=== PATIENT | female | born 1955 | race African-American/Black ===

== ENCOUNTER 2016-12-16 14:11 | Emergency (ER) | payer MEDICAID ==
[2016-12-16 14:21] VITALS: BP 161/76; BMI 41.5
--- NOTE | 2016-12-16 14:43 | DR.GENAD ---
HPI - PCP Primary Care Physician: ALEXSANDRA IVAN IN [facility] - Complaint/Symptoms Chief Complaint Doctors Comments: Patient admits to feet hurting for several months. The sole robles and hurt when standing. She is a diabetic and glucose level range of 200-300 Chief Complaint:: PT C/O PAIN IN FEET WHEN STANDING AND WALKING Self Treatment fo Chief Complaint: PT STATES SHE HAS BEEN HAVING THIS PROBLEM FOR ABOUT 3 OR 4 MONTHS - Source History Provided: Patient - Mode of Arrival Mode of Arrival: Ambulatory - Timing Onset of Chief Complaint: 12/16/16 PMH - PMH Past Medical History: Yes Past Medical History: Anxiety, Arthritis, COPD, Depression, Diabetes, Dyslipidemia, Hypertension, Kidney Stones Past Surgical History: Yes Surgical History: Hysterectomy, Mastectomy, Tonsillectomy Past Surgical History Comment: RIGHT BREAST MASTECTOMY - Family History History of Family Medical Conditions: Yes Family Medical History: Diabetes Mellitus, Cancer, NC, Hypertension - Social History Does patient currently use any type of tobacco product: No Have you used tobacco products in the last 12 months: No Type of Tobacco Use: None Does any household member use tobacco: No Alcohol Use: None Do you use any recreational Drugs:: No Lives With: Family Lives Where: Home - infectious screening In the last 2 months have you had wt loss of >10#?: NO Have you had fever, night sweats or hemotysis?: No Have you traveled outside the country in the last 6 months?: No Isolation: Standard ROS - Review of Systems Constitutional: No Symptoms Reported Eyes: No Symptoms Reported ENTM: No Symptoms Reported Respiratoy: No Symptoms Reported Cardiovascular: No Symptoms Reported Gastrointestinal/Abdominal: No Symptoms Reported Genitourinary: No Symptoms Reported Neurological: No Symptoms Reported Musculoskeletal: No Symptoms Reported Integumentary: No Symptoms Reported Hematologic/Lymphatic: No Symptoms Reported Endocrine: No Symptoms Reported Psychiatric: No Symptoms Reported All Other Systems: Reviewed and Negative PE - Vital Signs Vitals: Temperature 98.7 F Pulse Rate 78 Respiratory Rate 20 Blood Pressure [Right Arm] 162/99 Blood Pressure [Left Arm] 163/76 Blood Pressure 161/76 O2 Sat by Pulse Oximetry 97 - General Limitations: No Limitations General Appearance: Alert, In No Apparent Distress - Head Head Exam: Normal Inspection, Atraumatic - Eyes Eye exam: Normal Appearance, PERRL, EOMI - ENT ENT Exam: Normal Exam External Ear Exam: Normal External Inspection TM/Canal Exam: Bilateral Normal Nose Exam: Normal Nose Exam Mouth Exam: Normal Inspection Throat Exam: Normal Inspection - Neck Neck Exam: Normal Inspection, Full ROM - Chest Chest Inspection: Normal Inspection - Respiratory Respiratory Exam: Normal Lung Sounds Bilat Respiratory Exam: Bilateral Clear to Auscultation - Cardiovascular Cardiovascular Exam: Regular Rate - Abdominal Exam Abdominal Exam: Normal Inspection, Normal Bowel Sounds Abdominal Tenderness: negative: RUQ, RLQ, LUQ, LLQ, Epigastrium, Suprapubic, Diffuse, Mild, Moderate, Severe, Other - Extremities Extremities Exam: Normal Inspection, Full ROM - Back Back Exam: Normal Inspection - Neurologic Neurological Exam: Alert, Oriented X3, CN II-XII Intact - Psychiatric Psychiatric Exam: Normal Affect, Normal Mood - Skin Skin Exam: Warm, Dry, Intact Course - Reevaluation 1st: Unchanged ROR - Labs Reviewed Result Diagrams: 12/16/16 15:00 12/16/16 15:00 Laboratory: WBC 5.5 X10^3/uL (3.6-10.0) 12/16/16 15:00 RBC 4.20 X10^6/uL (3.5-5.4) 12/16/16 15:00 Hgb 12.8 g/dL (12.0-16.0) 12/16/16 15:00 Hct 38.4 % (36.0-47.0) 12/16/16 15:00 MCV 91.4 fL (80.0-100.0) 12/16/16 15:00 MCH 30.5 pg (27.0-34.0) 12/16/16 15:00 MCHC 33.3 g/dL (33.0-35.0) 12/16/16 15:00 RDW 13.0 % (11.6-16.5) 12/16/16 15:00 Plt Count 204 X10^3/uL (150.0-450.0) 12/16/16 15:00 MPV 10.4 fL (7.4-11.0) 12/16/16 15:00 Neut % 58.4 % (42.0-75.0) 12/16/16 15:00 Lymph % 31.8 % (21.0-51.0) 12/16/16 15:00 [place] % 8.4 % (0.0-13.0) 12/16/16 15:00 Eos % 0.9 % (0.9-2.9) 12/16/16 15:00 Baso % 0.5 % (0.2-1.0) 12/16/16 15:00 Neut # 3.2 x10^3/uL (2.2-4.8) 12/16/16 15:00 Lymph # 1.7 X10^3/uL (1.3-2.9) 12/16/16 15:00 [place] # 0.5 x10^3/uL (0.3-0.8) 12/16/16 15:00 Eos # 0.1 x10^3/uL (0.0-0.2) 12/16/16 15:00 Baso # 0.0 X10^3/uL (0.0-0.1) 12/16/16 15:00 Absolute Nucleated RBC 0.0 /100WBC 12/16/16 15:00 Sodium 146 mmol/L (136-145) H 12/16/16 15:00 Corrected Sodium 148 mmol/L (136-145) H 12/16/16 15:00 Potassium 3.8 mmol/L (3.5-5.1) 12/16/16 15:00 Chloride 108 mmol/L (98-107) H 12/16/16 15:00 Carbon Dioxide 27.4 mmol/L (21-32) 12/16/16 15:00 BUN 9 mg/dL (7-18) 12/16/16 15:00 Creatinine 0.79 mg/dL (0.55-1.02) 12/16/16 15:00 Est GFR (MDRD) Af Amer > 60 (>60) 12/16/16 15:00 Est GFR (MDRD) Non-Af > 60 (>60) 12/16/16 15:00 Glucose 177 mg/dL (65-99) H 12/16/16 15:00 Hemoglobin A1c 7.5 % (4.5-6.2) H 12/16/16 15:00 Calcium 8.8 mg/dL (8.5-10.1) 12/16/16 15:00 Corrected Calcium TNP 12/16/16 15:00 Total Bilirubin 0.50 mg/dL (0.2-1.0) 12/16/16 15:00 AST 18 Units/L (15-37) 12/16/16 15:00 ALT 30 Units/L (12-78) 12/16/16 15:00 Alkaline Phosphatase 51 Units/L (46-116) 12/16/16 15:00 Total Protein 7.5 g/dL (6.4-8.2) 12/16/16 15:00 Albumin 3.7 g/dL (3.4-5.0) 12/16/16 15:00 Globulin 3.8 g/dL (2.5-4.5) 12/16/16 15:00 Albumin/Globulin Ratio 1.0 Ratio (1.1-2.1) L 12/16/16 15:00 - Diagnosis Discharge Problem: Diabetic neuropathy, painful - Discharge Plan Condition: Stable - Follow ups/Referrals Follow ups/Referrals: NFD,None [Primary Care Provider] - 3 days - Instructions
[2016-12-16 15:19] LABS: BASOPHILS % (AUTO) 0.5 % (0.2-1.0); EOSINOPHILS # (AUTO) 0.1 x10^3/uL (0.0-0.2); EOSINOPHILS % (AUTO) 0.9 % (0.9-2.9); HEMATOCRIT 38.4 % (36.0-47.0); HEMOGLOBIN 12.8 g/dL (12.0-16.0); LYMPHOCYTES # (AUTO) 1.7 X10^3/uL (1.3-2.9); LYMPHOCYTES % (AUTO) 31.8 % (21.0-51.0); MEAN CORPUSCULAR HEMOGLOBIN 30.5 pg (27.0-34.0); MEAN CORPUSCULAR HGB CONC 33.3 g/dL (33.0-35.0); MEAN CORPUSCULAR VOLUME 91.4 fL (80.0-100.0); MEAN PLATELET VOLUME 10.4 fL (7.4-11.0); MONOCYTES # (AUTO) 0.5 x10^3/uL (0.3-0.8); MONOCYTES % (AUTO) 8.4 % (0.0-13.0); NEUTROPHILS # (AUTO) 3.2 x10^3/uL (2.2-4.8); NEUTROPHILS % (AUTO) 58.4 % (42.0-75.0); PLATELET COUNT 204 X10^3/uL (150.0-450.0); WHITE BLOOD COUNT 5.5 X10^3/uL (3.6-10.0)
[2016-12-16 15:25] LABS: HEMOGLOBIN A1C 7.5 % (4.5-6.2)
[2016-12-16 15:27] LABS: ALANINE AMINOTRANSFERASE 30 Units/L (12-78); ALBUMIN 3.7 g/dL (3.4-5.0); ALKALINE PHOSPHATASE 51 Units/L (46-116); ASPARTATE AMINO TRANSFERASE 18 Units/L (15-37); BLOOD UREA NITROGEN 9 mg/dL (7-18); CALCIUM 8.8 mg/dL (8.5-10.1); CARBON DIOXIDE 27.4 mmol/L (21-32); CHLORIDE 108 mmol/L (98-107); COR NA(FOR HYPERGLY) 148 mmol/L (136-145); CREATININE 0.79 mg/dL (0.55-1.02); SODIUM 146 mmol/L (136-145); TOTAL PROTEIN 7.5 g/dL (6.4-8.2); eGFR BLACK RACES > 60 (>60); eGFR NON BLACK RACES > 60 (>60)
== END 2016-12-16 16:19 | disposition home or self-care (01) ==
LOC: ER 14:23
DX: E11.40 Type 2 diabetes mellitus with diabetic neuropathy, unspecified (principal); M79.2 Neuralgia and neuritis, unspecified
CPT/HCPCS: 36415; 80053; 83036; 85025; 99282

== ENCOUNTER → 2017-02-10 | Outpatient (CLI) | payer MEDICAID ==
[2017-02-10 11:01] LABS: BASOPHILS # (AUTO) 0.1 X10^3/uL (0.0-0.1); BASOPHILS % (AUTO) 1.1 % (0.2-1.0); EOSINOPHILS % (AUTO) 0.6 % (0.9-2.9); HEMATOCRIT 38.4 % (36.0-47.0); LYMPHOCYTES # (AUTO) 2.2 X10^3/uL (1.3-2.9); LYMPHOCYTES % (AUTO) 32.2 % (21.0-51.0); MEAN CORPUSCULAR HEMOGLOBIN 30.7 pg (27.0-34.0); MEAN CORPUSCULAR HGB CONC 33.9 g/dL (33.0-35.0); MEAN CORPUSCULAR VOLUME 90.5 fL (80.0-100.0); MEAN PLATELET VOLUME 10.3 fL (7.4-11.0); MONOCYTES # (AUTO) 0.6 x10^3/uL (0.3-0.8); MONOCYTES % (AUTO) 8.2 % (0.0-13.0); NEUTROPHILS # (AUTO) 3.9 x10^3/uL (2.2-4.8); NEUTROPHILS % (AUTO) 57.9 % (42.0-75.0); PLATELET COUNT 190 X10^3/uL (150.0-450.0); RED BLOOD COUNT 4.24 X10^6/uL (3.5-5.4); RED CELL DISTRIBUTION WIDTH 12.9 % (11.6-16.5); WHITE BLOOD COUNT 6.8 X10^3/uL (3.6-10.0)
[2017-02-10 11:15] LABS: ALANINE AMINOTRANSFERASE 27 Units/L (12-78); ALBUMIN 3.9 g/dL (3.4-5.0); ALKALINE PHOSPHATASE 60 Units/L (46-116); ASPARTATE AMINO TRANSFERASE 17 Units/L (15-37); BLOOD UREA NITROGEN 11 mg/dL (7-18); CALCIUM 9.1 mg/dL (8.5-10.1); CHLORIDE 107 mmol/L (98-107); CHOL/HDL RATIO 2.6 (0.0-5.0); CHOLESTEROL 162 mg/dL (0-200); COR NA(FOR HYPERGLY) 143 mmol/L (136-145); CREATININE 0.88 mg/dL (0.55-1.02); HDL CHOLESTEROL 63 mg/dL (40-60); SODIUM 141 mmol/L (136-145); T4 (THYROXINE) 7.5 ug/dL (4.7-13.3); TOTAL PROTEIN 7.7 g/dL (6.4-8.2); TRIGLYCERIDES 104 mg/dL (0-150); TSH (3RD GENERATION) 0.822 uIU/mL (0.358-3.74); eGFR BLACK RACES > 60 (>60); eGFR NON BLACK RACES > 60 (>60)
[2017-02-10 11:25] LABS: HEMOGLOBIN A1C 7.5 % (4.5-6.2)
== END | disposition home or self-care (01) | DRG 951 ==
LOC: LAB 10:19
PROVIDERS: ATTEND Nurse Practitioner Family
DX: Z00.00 Encounter for general adult medical examination without abnormal findings (principal); E11.9 Type 2 diabetes mellitus without complications; I10 Essential (primary) hypertension; E55.9 Vitamin D deficiency, unspecified; F32.89 Other specified depressive episodes; K21.9 Gastro-esophageal reflux disease without esophagitis; R10.84 Generalized abdominal pain; M54.89 Other dorsalgia; E53.8 Deficiency of other specified B group vitamins; R06.02 Shortness of breath; N76.0 Acute vaginitis; E78.4 Other hyperlipidemia; R30.0 Dysuria; R07.89 Other chest pain; Z41.8 Encounter for other procedures for purposes other than remedying health state; Z79.899 Other long term (current) drug therapy; J44.9 Chronic obstructive pulmonary disease, unspecified
CPT/HCPCS: 36415; 80053; 80061; 83036; 84436; 84443; 85025

== ENCOUNTER 2020-12-03 10:25 | Inpatient (IN) ==
--- NOTE | 2020-12-03 11:06 | DR.SOBA ---
HPI Time Seen Time Seen by Provider: 12/03/20 10:36 Complaints Chief Complaint Doctors Comments: 65 y/o female, has been ill for the past 2 weeks. Has been having frequent chills, then developed body aches past few days. Today started with cough, productive of thick creamy phlegm. + dyspnea today. Rader s been exposed to covid at a football game, thru family members. Did not receive any vaccines yet. Denies chest pain. Having aches, cough, dyspnea, weakness. Pulse ox low on EMS arrival, 80%. Better on NC. COVID-19 Coronavirus risk:travel/contact w/high risk person: Yes Has patient experienced Coronavirus symptoms: Yes Coronavirus symptoms experienced: Fever, Coughing and Shortness of Breath Reviewed Nurses Notes Reviewed: Yes Source History Provided: Patient and EMS Mode of Arrival Mode of Arrival: EMS Context Onset:: At Rest History of:: CHF Modifying Factors Worsens:: Nothing and Exertion Improves:: Nothing Associated Signs and Symptoms Associated Signs and Symptoms: Cough PMH PMH Past Medical History: Anxiety, Arthritis, COPD, Depression, Diabetes, Dyslipidemia, Hypertension and Kidney Stones Past Surgical History: Yes Surgical History: Hysterectomy, Mastectomy and Tonsillectomy Family History Family Medical History: Diabetes Mellitus, Cancer, PR and Hypertension Social History Do you use any recreational Drugs:: No ROS Review of Systems Constitutional: Chills, Fever, Malaise and Weakness Eyes: No Symptoms Reported ENTM: No Symptoms Reported Respiratoy: Productive Cough and Short of Breath Cardiovascular: No Symptoms Reported Gastrointestinal/Abdominal: Nausea; negative Abdominal Pain, Diarrhea and Vomiting Genitourinary: No Symptoms Reported Neurological: Weakness Musculoskeletal: Joint Pain and Muscle Pain Integumentary: No Symptoms Reported Hematologic/Lymphatic: No Symptoms Reported Endocrine: No Symptoms Reported Psychiatric: No Symptoms Reported All Other Systems: Reviewed and Negative PE Vital Signs Vitals: Pulse Rate 96 Respiratory Rate 23 Blood Pressure [Right Arm] 142/75 Blood Pressure 141/69 O2 Sat by Pulse Oximetry 92 General Limitations: No Limitations General Appearance: Alert and In No Apparent Distress Head Head Exam: Normal Inspection Eyes Eye exam: Normal Appearance ENT ENT Exam: Normal Exam Neck Neck Exam: Normal Inspection and Full ROM; negative Meningismus Chest Chest Inspection: Normal Inspection Respiratory Respiratory Exam: Normal Lung Sounds Bilat; negative Accessory Muscle Use and Respiratory Distress Cardiovascular Cardiovascular Exam: Regular Rate, Normal Rhythm and Normal Heart Sounds Abdominal Exam Abdominal Exam: Normal Inspection and Normal Bowel Sounds; negative Tenderness Extremities Extremities Exam: Normal Inspection and Full ROM; negative Edema Back Back Exam: Normal Inspection Neurologic Neurological Exam: Alert, Oriented X3 and CN II-XII Intact; negative Motor Sensory Deficit Psychiatric Psychiatric Exam: Normal Affect Skin Skin Exam: Warm and Dry MDM Differential Diagnosis Differential Diagnosis: COPD, Pneumonia and Pulmonary embolism Differential Diagnosis Comment:: Covid infection COURSE Treatment Treatment: 65 y/o female, not feeling great for 2 weeks with chills, developed a productive cough today with dyspnea. Has been exposed to covid. Pulse ox on RA in the low 80s on EMS arrival. Doing better on O2. W/u initiated. Covid test is positive. CXR with bilateral opacifications c/w covid pneumonia. Total CK elevated to 955, but MB % and troponin negative. Lactic acid elevated at 2.2. Pt given IV fluids, IV steroids and will cover with IV Azithromycin. 1512 - was c/o headache, generalized body aches. Given IV morphine. Pt assisted to bedside commode by RN, dropped pulse ox despite being on O2. Recommend admission for further treatment. Pt's PCP Dr. Tripp, currently OOT. Will discuss with covering hospitalist, Dr. Waterman. 1555 - Dr. Waterman accepts the admission. ROR Labs Reviewed Laboratory Results Reviewed?: Yes Result Diagrams: 12/03/20 10:55 12/03/20 10:55 Laboratory: WBC 5.4 X10^3/uL (3.6-10.0) 12/03/20 10:55 RBC 4.14 X10^6/uL (3.5-5.4) 12/03/20 10:55 Hgb 12.8 g/dL (12.0-16.0) 12/03/20 10:55 Hct 37.9 % (36.0-47.0) 12/03/20 10:55 MCV 91.5 fL (80.0-100.0) 12/03/20 10:55 MCH 31.0 pg (27.0-34.0) 12/03/20 10:55 MCHC 33.9 g/dL (33.0-35.0) 12/03/20 10:55 RDW 13.0 % (11.6-16.5) 12/03/20 10:55 Plt Count 144 X10^3/uL (150.0-450.0) L 12/03/20 10:55 MPV 10.7 fL (7.4-11.0) 12/03/20 10:55 Neut % (Auto) 70.0 % (42.0-75.0) 12/03/20 10:55 Lymph % (Auto) 21.2 % (21.0-51.0) 12/03/20 10:55 [place] % (Auto) 8.1 % (0.0-13.0) 12/03/20 10:55 Eos % (Auto) 0.1 % (0.9-2.9) L 12/03/20 10:55 Baso % (Auto) 0.6 % (0.2-1.0) 12/03/20 10:55 Neut # (Auto) 3.7 x10^3/uL (2.2-4.8) 12/03/20 10:55 Lymph # (Auto) 1.1 X10^3/uL (1.3-2.9) L 12/03/20 10:55 [place] # (Auto) 0.4 x10^3/uL (0.3-0.8) 12/03/20 10:55 Eos # (Auto) 0.0 x10^3/uL (0.0-0.2) 12/03/20 10:55 Baso # (Auto) 0.0 X10^3/uL (0.0-0.1) 12/03/20 10:55 Absolute Nucleated RBC 0.2 /100WBC 12/03/20 10:55 Sodium 144 mmol/L (136-145) 12/03/20 10:55 Corrected Sodium 146 mmol/L (136-145) H 12/03/20 10:55 Potassium 3.7 mmol/L (3.5-5.1) 12/03/20 10:55 Chloride 106 mmol/L (98-107) 12/03/20 10:55 Carbon Dioxide 28.4 mmol/L (21-32) 12/03/20 10:55 BUN 9 mg/dL (7-18) 12/03/20 10:55 Creatinine 0.95 mg/dL (0.55-1.02) 12/03/20 10:55 Est GFR (MDRD) Af Amer > 60 (>60) 12/03/20 10:55 Est GFR (MDRD) Non-Af > 60 (>60) 12/03/20 10:55 Glucose 179 mg/dL (65-99) H 12/03/20 10:55 Lactic Acid 2.2 mmol/L (0.4-2.0) H 12/03/20 10:55 Calcium 8.2 mg/dL (8.5-10.1) L 12/03/20 10:55 Corrected Calcium 8.8 mg/dL (8.5-10.1) 12/03/20 10:55 Total Bilirubin 1.00 mg/dL (0.2-1.0) 12/03/20 10:55 AST 103 Units/L (15-37) H 12/03/20 10:55 ALT 50 Units/L (12-78) 12/03/20 10:55 Alkaline Phosphatase 52 Units/L (46-116) 12/03/20 10:55 Creatine Kinase 955 Units/L (26-192) H 12/03/20 10:55 CK-MB (CK-2) < 1.0 ng/mL (0-4.0) 12/03/20 10:55 CK/CKMB % Calc 0.1 % (<4) 12/03/20 10:55 Troponin I < 0.02 ng/mL (0-1.5) 12/03/20 10:55 B-Natriuretic Peptide 11.1 pg/mL (0-79) 12/03/20 10:55 Total Protein 7.6 g/dL (6.4-8.2) 12/03/20 10:55 Albumin 3.3 g/dL (3.4-5.0) L 12/03/20 10:55 Globulin 4.3 g/dL (2.5-4.5) 12/03/20 10:55 Albumin/Globulin Ratio 0.8 Ratio (1.1-2.1) L 12/03/20 10:55 SARS-CoV-2 (PCR) Positive (NEGATIVE) A 12/03/20 12:18 Influenza Type A (PCR) Negative (NEGATIVE) 12/03/20 12:18 Influenza Type B (PCR) Negative (NEGATIVE) 12/03/20 12:18 RSV (PCR) Negative (NEGATIVE) 12/03/20 12:18 Other Results Comments: labs overall acceptable. Covid test is positive. XRAY XRAY Interpreted by: Both X-ray Results: + bilateral opacifications c/w Covid pneumonia EKG Rate: 101 [place]: Normal Rhythm: ST Block: None Hypertrophy: LAE and LVH ST: Normal Opioid Opioid Risk Tool Age (Tino box if 16-45): No History of Preadolescent Sexual Abuse: No Total: 0 Total Score Risk Category: Low Risk Copyright: [facility] predicting aberrant behaviors Diagnosis Discharge Problem: Pneumonia due to COVID-19 virus, Hypoxia
--- NOTE | 2020-12-03 11:22 | RAD ---
CHEST, 1 VIEWHISTORY: SOBStudy: Single view of the chest.Comparison:NoneFindings:The cardiomediastinal silhouette is normal. Bilateral interstitial prominence, possible early alveolar infiltrates. No focal consolidations, pleural effusions or pneumothorax. Osseous structures demonstrate no acute abnormality.IMPRESSION:1. Bilateral interstitial prominence and early alveolar infiltrates. Findings may represent atypical infection, including viral etiologies.Electronically signed by: DAVE FRAGA (Dec 03, 2020 11:20:17)
[2020-12-03 11:31] LABS: BASOPHILS % (AUTO) 0.6 % (0.2-1.0); EOSINOPHILS % (AUTO) 0.1 % (0.9-2.9); HEMATOCRIT 37.9 % (36.0-47.0); HEMOGLOBIN 12.8 g/dL (12.0-16.0); LYMPHOCYTES # (AUTO) 1.1 X10^3/uL (1.3-2.9); LYMPHOCYTES % (AUTO) 21.2 % (21.0-51.0); MEAN CORPUSCULAR HGB CONC 33.9 g/dL (33.0-35.0); MEAN CORPUSCULAR VOLUME 91.5 fL (80.0-100.0); MEAN PLATELET VOLUME 10.7 fL (7.4-11.0); MONOCYTES # (AUTO) 0.4 x10^3/uL (0.3-0.8); MONOCYTES % (AUTO) 8.1 % (0.0-13.0); NEUTROPHILS # (AUTO) 3.7 x10^3/uL (2.2-4.8); PLATELET COUNT 144 X10^3/uL (150.0-450.0); RED BLOOD COUNT 4.14 X10^6/uL (3.5-5.4); WHITE BLOOD COUNT 5.4 X10^3/uL (3.6-10.0)
[2020-12-03 11:52] LABS: ALANINE AMINOTRANSFERASE 50 Units/L (12-78); ALBUMIN 3.3 g/dL (3.4-5.0); ALKALINE PHOSPHATASE 52 Units/L (46-116); ASPARTATE AMINO TRANSFERASE 103 Units/L (15-37); BLOOD UREA NITROGEN 9 mg/dL (7-18); CALCIUM 8.2 mg/dL (8.5-10.1); CARBON DIOXIDE 28.4 mmol/L (21-32); CHLORIDE 106 mmol/L (98-107); CKMB % 0.1 % (<4); COR CA(FOR HYPOALB) 8.8 mg/dL (8.5-10.1); COR NA(FOR HYPERGLY) 146 mmol/L (136-145); CREATINE KINASE 955 Units/L (26-192); CREATINE KINASE MB < 1.0 ng/mL (0-4.0); CREATININE 0.95 mg/dL (0.55-1.02); SODIUM 144 mmol/L (136-145); TOTAL PROTEIN 7.6 g/dL (6.4-8.2); TROPONIN I < 0.02 ng/mL (0-1.5); eGFR NON BLACK RACES > 60 (>60)
[2020-12-03 11:59] LABS: LACTIC ACID 2.2 mmol/L (0.4-2.0)
[2020-12-03] MEDS ORDERED: MORPHINE SULFATE INJ 4 MG IVP ONE (14:06)
[2020-12-03] MEDS ORDERED: SOLU-Medrol 125 MG VIAL IVP ONE (14:06)
[2020-12-03] MEDS ORDERED: ZITHROMAX INJ 500 MG VIAL 500 MG in NS 250 ML IV 250 ML IV SCH (14:07)
[2020-12-03] MEDS ORDERED: ZITHROMAX INJ 500 MG VIAL IV ONE (14:41)
[2020-12-03] MEDS ORDERED: MORPHINE SULFATE INJ 4 MG ONE (14:41)
[2020-12-03] MEDS ORDERED: SOLU-Medrol 125 MG VIAL ONE (14:41)
[2020-12-03] MEDS ORDERED: NS 250 ML IV 250 ML IV ONE (14:42)
[2020-12-03] MEDS ORDERED: ROBITUSSIN DM PO PRN (17:01)
[2020-12-03] MEDS ORDERED: REMDESIVIR 200 MG in NS 250 ML IV 250 ML IV ONE (17:01)
[2020-12-03] MEDS ORDERED: NS 100 ML IV 100 ML ONE (17:21)
[2020-12-03 17:51] LABS: ABG ALLEN TEST POS; ABG BASE EXCESS 1.3 mmol/L (-2.0-2.0); ABG HCO3 25.9 mmol/L (22-26)
[2020-12-03] MEDS ORDERED: PHARMACY CONSULT - IVERMECTIN XX SCH (18:00)
--- NOTE | 2020-12-03 18:03 | CT ---
CTA CHESTCLINICAL INDICATION: COVID + HYPOXIAPROCEDURE: Non gated axial images of the chest were obtained with intravenous contrast according to pulmonary embolism protocol. MIPS were reconstructed Dose reduction techniques including Automated Exposure Control (AEC) and adjustment of mA and kV were utlized.COMPARISON:NoneFINDINGS:No evidence of a pulmonary embolism to the level of the segmental pulmonary arteries.The heart is normal in size . No pericardial effusion . Patchy bilateral ground-glass opacities are present. No suspicious mediastinal or axillary lymph nodes . No focal consolidations, pleural effusions or pneumothorax .Airways are patent . No suspicious pulmonary nodules or masses .Limited images of the upper abdomen are unremarkable.No aggressive osseous lesions.IMPRESSION:1. No evidence of pulmonary embolism.2. Patchy bilateral ground-glass opacities consistent with acute, atypical infection including viral etiologies.Electronically signed by: DAVE FRAGA (Dec 03, 2020 18:01:35)
[2020-12-03] MEDS ORDERED: NS 250 ML IV 500 ML IV ONE (18:15)
[2020-12-03] MEDS ORDERED: REMDESIVIR IV ONE (18:15)
[2020-12-03] MEDS ORDERED: PEPCID TAB 20 MG PO SCH (21:00)
[2020-12-03] MEDS ORDERED: ACCUNEB 1.25 MG NEBULE NEB SCH (21:00)
[2020-12-03] MEDS ORDERED: PROTONIX TAB 40 MG PO SCH (21:00)
[2020-12-03] MEDS: PULMICORT NEB TX 0.5 MG NEB SCH (23:55)
[2020-12-03] MEDS: BROVANA IN SCH (23:55)
[2020-12-03] MEDS ORDERED: FLUVOXAMINE MALEATE ONE (23:57)
[2020-12-03] MEDS ORDERED: NS 1/2 1000 ML IV 1,000 ML IV ONE (23:58)
[2020-12-04] MEDS: ASCORBIC ACID INJ MULTI-DOSE VIAL 1,500 MG in NS 50 ML IV 50 ML IV SCH ×5 (00:10→21:32)
[2020-12-04] MEDS: MELATONIN PO SCH ×2 (00:11→21:33)
[2020-12-04] MEDS: PERIACTIN TAB 4 MG PO SCH ×2 (00:11→05:26)
[2020-12-04] MEDS: SOLU-Medrol 40 MG VIAL IVP SCH ×4 (00:11→21:34)
[2020-12-04] MEDS: LIPITOR TAB 80 MG PO SCH ×2 (00:11→21:33)
[2020-12-04] MEDS: FLUVOXAMINE MALEATE PO SCH ×3 (00:12→21:32)
[2020-12-04] MEDS: TESSALON PERLES PO SCH ×4 (00:12→21:35)
[2020-12-04] MEDS: SINGULAIR TAB 10 MG PO SCH ×2 (00:12→21:34)
[2020-12-04] MEDS: NS 1/2 1000 ML IV 1,000 ML IV SCH ×4 (00:13→21:32)
[2020-12-04] MEDS: THIAMINE HCL INJ IVP SCH ×3 (00:13→21:34)
[2020-12-04] MEDS: SNACK - Diabetic Appropriate PO SCH ×2 (01:48→21:32)
[2020-12-04] MEDS ORDERED: NS 1/2 1000 ML IV 1,000 ML IV ONE (04:34)
[2020-12-04 05:49] LABS: ABG BASE EXCESS 1.7 mmol/L (-2.0-2.0); ABG HCO3 25.8 mmol/L (22-26)
[2020-12-04 05:54] LABS: ABG ALLEN TEST POS
[2020-12-04] MEDS: HumuLIN R SUBCUT PRN ×4 (06:06→21:57)
--- NOTE | 2020-12-04 06:51 | RAD ---
HISTORYSOBSTUDYPortable AP [id number]/26/2021FINDINGSHeart size is upper normal to slightly enlarged. Interval increase in patchy bilateral pulmonary infiltrates without evidence for pneumothorax or pleural fluid.IMPRESSIONIncreasing bilateral pneumonia.Electronically signed by: ARNALDO STROUD (Dec 04, 2020 06:49:24)
[2020-12-04 07:08] LABS: BASOPHILS % (AUTO) 0.3 % (0.2-1.0); HEMATOCRIT 38.6 % (36.0-47.0); HEMOGLOBIN 13.1 g/dL (12.0-16.0); LYMPHOCYTES % (AUTO) 26.8 % (21.0-51.0); MEAN CORPUSCULAR VOLUME 91.2 fL (80.0-100.0); MEAN PLATELET VOLUME 11.1 fL (7.4-11.0); MONOCYTES # (AUTO) 0.3 x10^3/uL (0.3-0.8); MONOCYTES % (AUTO) 7.8 % (0.0-13.0); NEUTROPHILS # (AUTO) 2.5 x10^3/uL (2.2-4.8); NEUTROPHILS % (AUTO) 65.1 % (42.0-75.0); PLATELET COUNT 184 X10^3/uL (150.0-450.0); RED BLOOD COUNT 4.23 X10^6/uL (3.5-5.4); RED CELL DISTRIBUTION WIDTH 13.1 % (11.6-16.5); WHITE BLOOD COUNT 3.9 X10^3/uL (3.6-10.0)
[2020-12-04 07:18] LABS: ALANINE AMINOTRANSFERASE 51 Units/L (12-78); ALKALINE PHOSPHATASE 56 Units/L (46-116); ASPARTATE AMINO TRANSFERASE 88 Units/L (15-37); BLOOD UREA NITROGEN 14 mg/dL (7-18); CALCIUM 8.8 mg/dL (8.5-10.1); CARBON DIOXIDE 27.4 mmol/L (21-32); CHLORIDE 104 mmol/L (98-107); COR CA(FOR HYPOALB) 9.6 mg/dL (8.5-10.1); COR NA(FOR HYPERGLY) 145 mmol/L (136-145); CREATININE 0.81 mg/dL (0.55-1.02); SODIUM 140 mmol/L (136-145); TOTAL PROTEIN 7.6 g/dL (6.4-8.2); eGFR NON BLACK RACES > 60 (>60)
[2020-12-04] MEDS ORDERED: PULMICORT NEB TX 0.5 MG NEB SCH (09:00)
[2020-12-04] MEDS ORDERED: VITAMIN D (1.25MG) PO SCH (09:00)
[2020-12-04] MEDS ORDERED: ASCORBIC ACID INJ MULTI-DOSE VIAL 1,500 MG in NS 100 ML IV 100 ML IV SCH (09:00)
[2020-12-04] MEDS ORDERED: VITAMIN A PO SCH (09:00)
[2020-12-04] MEDS ORDERED: THIAMINE HCL INJ IVP SCH (09:00)
[2020-12-04] MEDS ORDERED: LOVENOX INJ 100 MG SYR SC SCH (09:00)
[2020-12-04] MEDS ORDERED: PHARMACY CONSULT - LOVENOX XX SCH (09:00)
[2020-12-04] MEDS ORDERED: ZINC SULFATE PO SCH (09:00)
[2020-12-04] MEDS ORDERED: LIPITOR TAB 80 MG PO SCH (09:00)
[2020-12-04] MEDS ORDERED: LOVENOX INJ 40 MG SYR SC SCH (09:00)
[2020-12-04] MEDS ORDERED: BROVANA IN SCH (09:00)
[2020-12-04] MEDS: LEVAQUIN PREMIX IV 500 MG 500 MG/100 ML BAG IV SCH (09:30)
[2020-12-04] MEDS: LOVENOX INJ 100 MG SYR SC SCH ×2 (09:30→21:57)
[2020-12-04] MEDS: PROTONIX INJ 40 MG VIAL IVP SCH ×2 (09:31→21:33)
[2020-12-04] MEDS: PULMICORT NEB TX 0.5 MG NEB SCH ×2 (09:35→21:05)
[2020-12-04] MEDS: BROVANA IN SCH ×2 (09:35→21:05)
[2020-12-04] MEDS: ACCUNEB 1.25 MG NEBULE NEB PRN (09:35)
[2020-12-04] MEDS: ACTOS PO SCH (09:36)
[2020-12-04] MEDS: GLUCOPHAGE XR 24-HR PO SCH ×2 (09:36→21:32)
[2020-12-04] MEDS: VITAMIN D3 125 mcg (5,000 UNITS) PO SCH (09:36)
[2020-12-04] MEDS: PEPCID TAB 40 MG PO SCH ×2 (09:36→21:34)
[2020-12-04] MEDS: CYTOTEC PO SCH ×3 (09:37→21:34)
[2020-12-04] MEDS: ZINC SULFATE PO SCH (09:37)
[2020-12-04] MEDS: IVERMECTIN PO SCH (09:37)
[2020-12-04] MEDS: ZyrTEC TAB 10 MG PO SCH (09:37)
[2020-12-04] MEDS: REMDESIVIR 100 MG in NS 250 ML IV 250 ML IV SCH (19:57)
[2020-12-04] MEDS ORDERED: MELATONIN PO SCH (21:00)
[2020-12-05] MEDS: ASCORBIC ACID INJ MULTI-DOSE VIAL 1,500 MG in NS 50 ML IV 50 ML IV SCH ×4 (02:24→22:16)
[2020-12-05 05:11] LABS: ABG BASE EXCESS 3.2 mmol/L (-2.0-2.0); ABG HCO3 26.9 mmol/L (22-26)
[2020-12-05 05:13] LABS: ABG ALLEN TEST POSS
[2020-12-05] MEDS: CYTOTEC PO SCH ×3 (05:28→20:58)
[2020-12-05] MEDS: SOLU-Medrol 40 MG VIAL IVP SCH ×3 (05:29→21:03)
[2020-12-05] MEDS: TESSALON PERLES PO SCH ×3 (05:29→20:58)
[2020-12-05] MEDS: HumuLIN R SUBCUT PRN ×4 (06:04→20:55)
[2020-12-05 07:08] LABS: BASOPHILS % (AUTO) 0.2 % (0.2-1.0); HEMATOCRIT 35.1 % (36.0-47.0); HEMOGLOBIN 12.1 g/dL (12.0-16.0); LYMPHOCYTES # (AUTO) 1.2 X10^3/uL (1.3-2.9); LYMPHOCYTES % (AUTO) 17.5 % (21.0-51.0); MEAN CORPUSCULAR HGB CONC 34.3 g/dL (33.0-35.0); MEAN CORPUSCULAR VOLUME 90.2 fL (80.0-100.0); MEAN PLATELET VOLUME 11.3 fL (7.4-11.0); MONOCYTES # (AUTO) 0.6 x10^3/uL (0.3-0.8); MONOCYTES % (AUTO) 9.5 % (0.0-13.0); NEUTROPHILS # (AUTO) 4.8 x10^3/uL (2.2-4.8); NEUTROPHILS % (AUTO) 72.8 % (42.0-75.0); PLATELET COUNT 228 X10^3/uL (150.0-450.0); RED BLOOD COUNT 3.89 X10^6/uL (3.5-5.4); RED CELL DISTRIBUTION WIDTH 13.1 % (11.6-16.5); WHITE BLOOD COUNT 6.6 X10^3/uL (3.6-10.0)
[2020-12-05 07:26] LABS: ALANINE AMINOTRANSFERASE 39 Units/L (12-78); ALBUMIN 2.7 g/dL (3.4-5.0); ALKALINE PHOSPHATASE 50 Units/L (46-116); ASPARTATE AMINO TRANSFERASE 54 Units/L (15-37); BLOOD UREA NITROGEN 15 mg/dL (7-18); CALCIUM 8.2 mg/dL (8.5-10.1); CARBON DIOXIDE 26.4 mmol/L (21-32); CHLORIDE 106 mmol/L (98-107); COR CA(FOR HYPOALB) 9.2 mg/dL (8.5-10.1); COR NA(FOR HYPERGLY) 147 mmol/L (136-145); CREATININE 0.96 mg/dL (0.55-1.02); SODIUM 142 mmol/L (136-145); TOTAL PROTEIN 6.7 g/dL (6.4-8.2); eGFR NON BLACK RACES > 60 (>60)
--- NOTE | 2020-12-05 08:43 | RAD ---
HISTORYSOBSTUDYPortable AP [id number]/27/2021FINDINGSSimilar/stable heart size with no definite progression or improvemen t in bilateral pulmonary infiltrates. There is no evidence for developing pleural fluid or pneumothor ax.IMPRESSIONNo significant change in appearance of the bilateral pneumonia.Electronically signed by: ARNALDO STROUD (Dec 05, 2020 08:41:17)
[2020-12-05] MEDS: PROTONIX INJ 40 MG VIAL IVP SCH ×2 (08:51→21:04)
[2020-12-05] MEDS: LEVAQUIN PREMIX IV 500 MG 500 MG/100 ML BAG IV SCH (08:52)
[2020-12-05] MEDS: ZINC SULFATE PO SCH (08:52)
[2020-12-05] MEDS: ACTOS PO SCH (08:52)
[2020-12-05] MEDS: FLUVOXAMINE MALEATE PO SCH ×2 (08:52→20:58)
[2020-12-05] MEDS: VITAMIN D3 125 mcg (5,000 UNITS) PO SCH (08:53)
[2020-12-05] MEDS: PEPCID TAB 40 MG PO SCH ×2 (08:53→20:58)
[2020-12-05] MEDS: ZyrTEC TAB 10 MG PO SCH (08:53)
[2020-12-05] MEDS: GLUCOPHAGE XR 24-HR PO SCH ×2 (08:53→20:58)
[2020-12-05] MEDS: THIAMINE HCL INJ IVP SCH ×2 (08:53→21:06)
[2020-12-05] MEDS: IVERMECTIN PO SCH (08:54)
[2020-12-05] MEDS: NS 1/2 1000 ML IV 1,000 ML IV SCH ×2 (08:55→10:42)
[2020-12-05] MEDS: BROVANA IN SCH ×2 (09:18→21:27)
[2020-12-05] MEDS: ACCUNEB 1.25 MG NEBULE NEB PRN ×3 (09:18→21:26)
[2020-12-05] MEDS: PULMICORT NEB TX 0.5 MG NEB SCH ×2 (09:18→21:26)
[2020-12-05] MEDS: LOVENOX INJ 100 MG SYR SC SCH ×2 (10:14→20:59)
[2020-12-05] MEDS ORDERED: NS 1/2 1000 ML IV 1,000 ML IV ONE ×2 (10:27→19:51)
[2020-12-05] MEDS: INVOKANA PO SCH (14:43)
[2020-12-05] MEDS: SNACK - Diabetic Appropriate PO SCH (20:45)
[2020-12-05] MEDS: REMDESIVIR 100 MG in NS 250 ML IV 250 ML IV SCH (20:54)
[2020-12-05] MEDS: LIPITOR TAB 80 MG PO SCH (20:58)
[2020-12-05] MEDS: MELATONIN PO SCH (20:58)
[2020-12-05] MEDS: SINGULAIR TAB 10 MG PO SCH (20:58)
[2020-12-06] MEDS: SOLU-Medrol 40 MG VIAL IVP SCH ×4 (01:56→22:15)
[2020-12-06] MEDS: ASCORBIC ACID INJ MULTI-DOSE VIAL 1,500 MG in NS 50 ML IV 50 ML IV SCH ×4 (02:02→23:21)
[2020-12-06] MEDS: NS 1/2 1000 ML IV 1,000 ML IV SCH ×4 (03:32→22:08)
[2020-12-06] MEDS: TESSALON PERLES PO SCH ×3 (05:00→22:10)
[2020-12-06] MEDS: CYTOTEC PO SCH ×3 (05:00→22:10)
[2020-12-06 06:07] LABS: ABG BASE EXCESS 1.8 mmol/L (-2.0-2.0); ABG HCO3 25.7 mmol/L (22-26)
[2020-12-06 06:08] LABS: ABG ALLEN TEST POSS
[2020-12-06 06:27] LABS: BASOPHILS % (AUTO) 0.2 % (0.2-1.0); HEMATOCRIT 35.9 % (36.0-47.0); HEMOGLOBIN 12.2 g/dL (12.0-16.0); LYMPHOCYTES # (AUTO) 0.9 X10^3/uL (1.3-2.9); LYMPHOCYTES % (AUTO) 12.6 % (21.0-51.0); MEAN CORPUSCULAR HEMOGLOBIN 30.9 pg (27.0-34.0); MEAN CORPUSCULAR VOLUME 90.9 fL (80.0-100.0); MEAN PLATELET VOLUME 11.1 fL (7.4-11.0); MONOCYTES # (AUTO) 0.4 x10^3/uL (0.3-0.8); MONOCYTES % (AUTO) 5.8 % (0.0-13.0); NEUTROPHILS % (AUTO) 81.4 % (42.0-75.0); PLATELET COUNT 251 X10^3/uL (150.0-450.0); RED BLOOD COUNT 3.95 X10^6/uL (3.5-5.4); RED CELL DISTRIBUTION WIDTH 13.1 % (11.6-16.5); WHITE BLOOD COUNT 7.4 X10^3/uL (3.6-10.0)
--- NOTE | 2020-12-06 06:36 | RAD ---
HISTORYCOVID-19 pneumoniaSTUDYPortable AP [id number]/28/2021FINDINGSStable upper-normal heart size with persistent bilateral airspace disease, slightly increased in both upper lobes. There is no evidence for pneumothorax. There is suggestion of a localized intrapleural or extrapleural fluid collection at the lateral mid chest.IMPRESSIONPersistent bilateral pneumonia with slight interval progression since previous comparison. Suspect small localized fluid collection left lateral mid chest. This should be observed on follow-up exam.Electronically signed by: ARNALDO STROUD (Dec 06, 2020 06:34:37)
[2020-12-06 06:45] LABS: ALANINE AMINOTRANSFERASE 34 Units/L (12-78); ALBUMIN 2.7 g/dL (3.4-5.0); ALKALINE PHOSPHATASE 45 Units/L (46-116); ASPARTATE AMINO TRANSFERASE 40 Units/L (15-37); BLOOD UREA NITROGEN 16 mg/dL (7-18); CALCIUM 8.4 mg/dL (8.5-10.1); CARBON DIOXIDE 26.1 mmol/L (21-32); CHLORIDE 109 mmol/L (98-107); COR CA(FOR HYPOALB) 9.4 mg/dL (8.5-10.1); COR NA(FOR HYPERGLY) 148 mmol/L (136-145); CREATININE 1.07 mg/dL (0.55-1.02); SODIUM 145 mmol/L (136-145); TOTAL PROTEIN 6.6 g/dL (6.4-8.2); eGFR NON BLACK RACES 55 (>60)
[2020-12-06] MEDS: ACTOS PO SCH (09:00)
[2020-12-06] MEDS: PROTONIX INJ 40 MG VIAL IVP SCH ×2 (09:00→22:14)
[2020-12-06] MEDS ORDERED: VITAMIN D3 125 mcg (5,000 UNITS) PO SCH (09:00)
[2020-12-06] MEDS: INVOKANA PO SCH (09:01)
[2020-12-06] MEDS: ZyrTEC TAB 10 MG PO SCH (09:01)
[2020-12-06] MEDS: FLUVOXAMINE MALEATE PO SCH ×2 (09:01→22:10)
[2020-12-06] MEDS: GLUCOPHAGE XR 24-HR PO SCH ×2 (09:01→22:10)
[2020-12-06] MEDS: LOVENOX INJ 100 MG SYR SC SCH ×2 (09:01→22:12)
[2020-12-06] MEDS: ZINC SULFATE PO SCH (09:01)
[2020-12-06] MEDS: PEPCID TAB 40 MG PO SCH ×2 (09:02→22:10)
[2020-12-06] MEDS: VITAMIN A PO SCH (09:03)
[2020-12-06] MEDS: VITAMIN D3 125 mcg (5,000 UNITS) PO SCH (09:03)
[2020-12-06] MEDS: THIAMINE HCL INJ IVP SCH ×2 (09:03→22:16)
[2020-12-06] MEDS: LEVAQUIN PREMIX IV 500 MG 500 MG/100 ML BAG IV SCH (10:00)
[2020-12-06] MEDS: IVERMECTIN PO SCH (13:45)
[2020-12-06] MEDS: SNACK - Diabetic Appropriate PO SCH (20:00)
[2020-12-06] MEDS: PULMICORT NEB TX 0.5 MG NEB SCH (20:16)
[2020-12-06] MEDS: BROVANA IN SCH (20:16)
[2020-12-06] MEDS ORDERED: NS 1/2 1000 ML IV 1,000 ML IV ONE (20:43)
[2020-12-06] MEDS: LIPITOR TAB 80 MG PO SCH (22:10)
[2020-12-06] MEDS: PERIACTIN TAB 4 MG PO PRN (22:10)
[2020-12-06] MEDS: SINGULAIR TAB 10 MG PO SCH (22:10)
[2020-12-06] MEDS: MELATONIN PO SCH (22:10)
[2020-12-06] MEDS: HumuLIN R SUBCUT PRN (22:13)
[2020-12-06] MEDS: REMDESIVIR 100 MG in NS 250 ML IV 250 ML IV SCH (22:17)
[2020-12-07] MEDS: ASCORBIC ACID INJ MULTI-DOSE VIAL 1,500 MG in NS 50 ML IV 50 ML IV SCH ×4 (02:00→23:23)
[2020-12-07] MEDS: SOLU-Medrol 40 MG VIAL IVP SCH ×2 (02:00→06:13)
[2020-12-07] MEDS ORDERED: NS 1/2 1000 ML IV 1,000 ML IV ONE (04:08)
[2020-12-07 04:16] LABS: ABG ALLEN TEST POS; ABG BASE EXCESS -0.1 mmol/L (-2.0-2.0); ABG HCO3 23.9 mmol/L (22-26)
[2020-12-07] MEDS: TESSALON PERLES PO SCH ×3 (05:09→22:17)
[2020-12-07] MEDS: CYTOTEC PO SCH ×3 (05:09→22:17)
[2020-12-07] MEDS: HumuLIN R SUBCUT PRN ×2 (05:47→17:47)
[2020-12-07 07:26] LABS: ALANINE AMINOTRANSFERASE 27 Units/L (12-78); ALBUMIN 2.4 g/dL (3.4-5.0); ALKALINE PHOSPHATASE 41 Units/L (46-116); ASPARTATE AMINO TRANSFERASE 31 Units/L (15-37); BLOOD UREA NITROGEN 23 mg/dL (7-18); CALCIUM 8.2 mg/dL (8.5-10.1); CARBON DIOXIDE 24.2 mmol/L (21-32); CHLORIDE 111 mmol/L (98-107); COR CA(FOR HYPOALB) 9.5 mg/dL (8.5-10.1); COR NA(FOR HYPERGLY) 148 mmol/L (136-145); CREATININE 1.02 mg/dL (0.55-1.02); SODIUM 145 mmol/L (136-145); eGFR NON BLACK RACES 58 (>60)
[2020-12-07 07:36] LABS: BASOPHILS % (AUTO) 0.1 % (0.2-1.0); HEMATOCRIT 36.6 % (36.0-47.0); HEMOGLOBIN 12.2 g/dL (12.0-16.0); LYMPHOCYTES # (AUTO) 0.6 X10^3/uL (1.3-2.9); LYMPHOCYTES % (AUTO) 9.8 % (21.0-51.0); MEAN CORPUSCULAR HEMOGLOBIN 30.8 pg (27.0-34.0); MEAN CORPUSCULAR HGB CONC 33.5 g/dL (33.0-35.0); MEAN CORPUSCULAR VOLUME 92.1 fL (80.0-100.0); MEAN PLATELET VOLUME 11.3 fL (7.4-11.0); MONOCYTES # (AUTO) 0.5 x10^3/uL (0.3-0.8); MONOCYTES % (AUTO) 7.9 % (0.0-13.0); NEUTROPHILS # (AUTO) 5.3 x10^3/uL (2.2-4.8); NEUTROPHILS % (AUTO) 82.2 % (42.0-75.0); PLATELET COUNT 259 X10^3/uL (150.0-450.0); RED BLOOD COUNT 3.97 X10^6/uL (3.5-5.4); WHITE BLOOD COUNT 6.4 X10^3/uL (3.6-10.0)
--- NOTE | 2020-12-07 08:05 | RAD ---
HISTORYSOBSTUDYCHEST, 1 [id number]/29/2021FINDINGSPatchy bilateral areas of opacity are present consistent with bronchopneumonia. Findings may have improved slightly on the right side.No pleural effusion or pneumothorax.Heart size is normal.Bones are unremarkable.Surgical clips are present in the left axilla.IMPRESSION1. Improved bronchopneumoniaElectronically signed by: Cleveland Montes (Dec 07, 2020 08:03:26)
[2020-12-07] MEDS: BROVANA IN SCH ×3 (08:40→20:30)
[2020-12-07] MEDS: PULMICORT NEB TX 0.5 MG NEB SCH ×3 (08:40→20:30)
[2020-12-07] MEDS: PROTONIX INJ 40 MG VIAL IVP SCH ×2 (10:21→22:21)
[2020-12-07] MEDS: LOVENOX INJ 100 MG SYR SC SCH ×2 (10:22→22:18)
[2020-12-07] MEDS: ZyrTEC TAB 10 MG PO SCH (10:23)
[2020-12-07] MEDS: ZINC SULFATE PO SCH (10:23)
[2020-12-07] MEDS: FLUVOXAMINE MALEATE PO SCH ×2 (10:24→22:17)
[2020-12-07] MEDS: PEPCID TAB 40 MG PO SCH ×2 (10:24→22:17)
[2020-12-07] MEDS: GLUCOPHAGE XR 24-HR PO SCH ×2 (10:24→22:17)
[2020-12-07] MEDS: ACTOS PO SCH (10:25)
[2020-12-07] MEDS: INVOKANA PO SCH (10:25)
[2020-12-07] MEDS: THIAMINE HCL INJ IVP SCH ×2 (10:26→22:20)
[2020-12-07] MEDS: LEVAQUIN PREMIX IV 500 MG 500 MG/100 ML BAG IV SCH (10:26)
[2020-12-07] MEDS: IVERMECTIN PO SCH (11:48)
[2020-12-07] MEDS: VITAMIN D3 125 mcg (5,000 UNITS) PO SCH (11:49)
[2020-12-07] MEDS: VITAMIN A PO SCH (11:49)
[2020-12-07] MEDS ORDERED: SOLU-Medrol 40 MG VIAL IVP SCH (15:00)
[2020-12-07] MEDS: NS 1/2 1000 ML IV 1,000 ML IV SCH ×2 (15:36→19:52)
[2020-12-07] MEDS: SOLU-Medrol 125 MG VIAL IVP SCH ×2 (15:37→22:22)
[2020-12-07 21:35] LABS: MAGNESIUM 2.5 mg/dL (1.7-2.9)
[2020-12-07] MEDS ORDERED: MICRO K EXTEN CAP 10 MEQ PO PRN (21:45)
[2020-12-07] MEDS ORDERED: POTASSIUM CHL 60 MEQ/NS 0.45% 500 ML IV PRN (21:45)
[2020-12-07] MEDS ORDERED: POTASSIUM CHLORIDE LIQ 20 MEQ UDC PO PRN (21:45)
[2020-12-07] MEDS ORDERED: K-RIDER 10 MEQ/NS 100 ML 10 MEQ/100 ML BAG IV PRN (21:45)
[2020-12-07] MEDS ORDERED: POTASSIUM CHL 40 MEQ/NS 0.45% 500 ML IV PRN (21:45)
[2020-12-07] MEDS: K-DUR TAB 20 MEQ PO PRN (22:15)
[2020-12-07] MEDS: MELATONIN PO SCH (22:17)
[2020-12-07] MEDS: SINGULAIR TAB 10 MG PO SCH (22:17)
[2020-12-07] MEDS: LIPITOR TAB 80 MG PO SCH (22:17)
[2020-12-07] MEDS: PERIACTIN TAB 4 MG PO PRN (22:17)
[2020-12-07] MEDS: REMDESIVIR 100 MG in NS 250 ML IV 250 ML IV SCH (22:23)
[2020-12-07] MEDS: SNACK - Diabetic Appropriate PO SCH (23:25)
[2020-12-08] MEDS: NS 1/2 1000 ML IV 1,000 ML IV SCH ×4 (01:04→20:39)
[2020-12-08] MEDS ORDERED: NS 1/2 1000 ML IV 1,000 ML IV ONE ×3 (01:57→20:03)
[2020-12-08] MEDS: SOLU-Medrol 125 MG VIAL IVP SCH ×4 (02:09→20:47)
[2020-12-08] MEDS: ASCORBIC ACID INJ MULTI-DOSE VIAL 1,500 MG in NS 50 ML IV 50 ML IV SCH ×4 (02:10→22:14)
[2020-12-08 04:41] LABS: ABG ALLEN TEST POS; ABG BASE EXCESS -2.6 mmol/L (-2.0-2.0); ABG HCO3 21.7 mmol/L (22-26)
[2020-12-08] MEDS: CYTOTEC PO SCH ×3 (05:09→21:00)
[2020-12-08] MEDS: TESSALON PERLES PO SCH ×3 (05:10→21:00)
[2020-12-08 07:06] LABS: BASOPHILS % (AUTO) 0.1 % (0.2-1.0); HEMATOCRIT 38.3 % (36.0-47.0); HEMOGLOBIN 12.7 g/dL (12.0-16.0); LYMPHOCYTES # (AUTO) 0.8 X10^3/uL (1.3-2.9); LYMPHOCYTES % (AUTO) 11.1 % (21.0-51.0); MEAN CORPUSCULAR HEMOGLOBIN 30.7 pg (27.0-34.0); MEAN CORPUSCULAR HGB CONC 33.2 g/dL (33.0-35.0); MEAN CORPUSCULAR VOLUME 92.4 fL (80.0-100.0); MEAN PLATELET VOLUME 11.1 fL (7.4-11.0); MONOCYTES # (AUTO) 0.4 x10^3/uL (0.3-0.8); NEUTROPHILS % (AUTO) 82.8 % (42.0-75.0); PLATELET COUNT 268 X10^3/uL (150.0-450.0); RED BLOOD COUNT 4.14 X10^6/uL (3.5-5.4); RED CELL DISTRIBUTION WIDTH 13.2 % (11.6-16.5); WHITE BLOOD COUNT 7.3 X10^3/uL (3.6-10.0)
[2020-12-08 07:33] LABS: ALANINE AMINOTRANSFERASE 26 Units/L (12-78); ALBUMIN 2.5 g/dL (3.4-5.0); ALKALINE PHOSPHATASE 39 Units/L (46-116); ASPARTATE AMINO TRANSFERASE 34 Units/L (15-37); BLOOD UREA NITROGEN 28 mg/dL (7-18); CALCIUM 8.5 mg/dL (8.5-10.1); CHLORIDE 112 mmol/L (98-107); COR CA(FOR HYPOALB) 9.7 mg/dL (8.5-10.1); COR NA(FOR HYPERGLY) 149 mmol/L (136-145); SODIUM 147 mmol/L (136-145); TOTAL PROTEIN 6.2 g/dL (6.4-8.2); eGFR NON BLACK RACES 53 (>60)
--- NOTE | 2020-12-08 08:06 | RAD ---
HISTORYSOBSTUDYCHEST, 1 [id number]/30/2021FINDINGSPatchy bilateral areas of airspace opacity are present. The findings may have progressed slightly, particularly on the right side.No pleural effusion or pneumothorax.The heart size is magnified.Bones are unremarkable.EKG leads are noted.IMPRESSION1. Progressed bronchopneumoniaElectronically signed by: Cleveland Montes (Dec 08, 2020 08:04:00)
--- NOTE | 2020-12-08 08:09 | PCM.PROG ---
Progress Note Progress Note for Day of Date of Exam: 12/07/20 Subjective Subjective: Pt is a 65 year old female admitted for COVID-19 pneumonia with hypoxia. This morning she reports some improvement in her breathing. She is currently utilizing heated high flow oxygen at FiO2 90%. Labs/imaging: Wbc 6.4, Hgb 12.2, Plt 259, Na 148, K 3.3, Creatinine 1.02, Glucose 210, CRP 9.20, ABG: pH 7.43, pCO2 36, pO2 59, HCO3 23, O2 sat 91% on HHF@88%. CXR this morning was obtained that revealed: Patchy bilateral areas of opacity are present consistent with bronchopneumonia. Findings may have improved slightly on the right side. Pt is a on current treatment course that includes: IVF 1/2 NS@80ml/h, Remdesivir, Solumedrol 125mg q6h, scheduled Bronchodilators, Antibiotics: Levaquin, Cytotec, Fluvoxamine, Ivermectin, Full dose Lovenox, immune supporting supplements, supplemental O2, I/S, Respiratory therapy consult, Pneumonia protocol. Wean/titrate oxygen as tolerated. Sputum culture positive for Pseudomonas sensitive to Levaquin, continue antibiotics. Replete potassium. Otherwise, will continue current treatment plan. Monitor closely and follow up labs/imaging in the morning. Time spent on clinical assessment, reviewing labs and imaging, decision making, and documentation greater than 45 minutes. Past Medical Family Social History Past Med/Fam/Surg Hx: No changes since H&P Allergies: Allergies No Known Drug Allergies Allergy (Verified 05/13/20 08:54) Review of Systems ROS: No change since H&P Vital Signs and I&O's Vital Signs: Temperature 99.1 F Pulse Rate [Left] 74 Pulse Rate 65 Respiratory Rate 18 Blood Pressure [Left Arm] 120/66 Blood Pressure [Right Arm] 115/60 Blood Pressure 176/77 O2 Sat by Pulse Oximetry 100 Intake and Output: Intake & Output 12/05/20 12/06/20 12/07/20 12/08/20 23:59 23:59 23:59 23:59 Intake Total 1790 / 1790 2888 / 2888 4108 / 4108 467 / 467 Output Total Balance 1790 / 1790 2887 / 2887 4108 / 4108 467 / 467 Physical Exam Oriented: Normal Eyes: Normal Ear: Normal Nose: Normal Throat: Normal Respiratory: Diminished and Wheezes Cardiovascular: Normal : Normal Auscultation: Bowel Sounds: Normal Tenderness: Normal Skin: Normal Musculoskeletal: Normal Psychiatric: Normal Mood Description: Calm Speech Pattern: Clear and Appropriate Laboratory and Diagnostics Result Diagrams: 12/08/20 05:39 12/08/20 05:39 Labs: 12/04/20 21:15 Sputum - Expectorated Sputum Sputum Culture - Final Pseudomonas Aeruginosa 12/04/20 21:15 Sputum - Expectorated Sputum - Final 12/03/20 10:55 Blood Blood Culture - Preliminary 12/03/20 10:50 Blood Blood Culture - Preliminary Laboratory WBC 7.3 X10^3/uL (3.6-10.0) 12/08/20 05:39 RBC 4.14 X10^6/uL (3.5-5.4) 12/08/20 05:39 Hgb 12.7 g/dL (12.0-16.0) 12/08/20 05:39 Hct 38.3 % (36.0-47.0) 12/08/20 05:39 MCV 92.4 fL (80.0-100.0) 12/08/20 05:39 MCH 30.7 pg (27.0-34.0) 12/08/20 05:39 MCHC 33.2 g/dL (33.0-35.0) 12/08/20 05:39 RDW 13.2 % (11.6-16.5) 12/08/20 05:39 Plt Count 268 X10^3/uL (150.0-450.0) 12/08/20 05:39 MPV 11.1 fL (7.4-11.0) H 12/08/20 05:39 Neut % (Auto) 82.8 % (42.0-75.0) H 12/08/20 05:39 Lymph % (Auto) 11.1 % (21.0-51.0) L 12/08/20 05:39 [place] % (Auto) 6.0 % (0.0-13.0) 12/08/20 05:39 Eos % (Auto) 0.0 % (0.9-2.9) L 12/08/20 05:39 Baso % (Auto) 0.1 % (0.2-1.0) L 12/08/20 05:39 Neut # (Auto) 6.0 x10^3/uL (2.2-4.8) H 12/08/20 05:39 Lymph # (Auto) 0.8 X10^3/uL (1.3-2.9) L 12/08/20 05:39 [place] # (Auto) 0.4 x10^3/uL (0.3-0.8) 12/08/20 05:39 Eos # (Auto) 0.0 x10^3/uL (0.0-0.2) 12/08/20 05:39 Baso # (Auto) 0.0 X10^3/uL (0.0-0.1) 12/08/20 05:39 Absolute Nucleated RBC 0.3 /100WBC 12/08/20 05:39 D-Dimer 0.39 ug/ml (0.0-0.57) 12/08/20 05:39 Sample Site Lr 12/08/20 04:35 ABG pH 7.400 (7.35-7.45) 12/08/20 04:35 ABG pCO2 35.0 mmHg (35.0-45.0) 12/08/20 04:35 ABG pO2 72.0 mmHg (80.0-100.0) L 12/08/20 04:35 ABG HCO3 21.7 mmol/L (22-26) L 12/08/20 04:35 ABG O2 Saturation 94.0 % (90-100) 12/08/20 04:35 ABG Base Excess -2.6 mmol/L (-2.0-2.0) L 12/08/20 04:35 Agusto Test Pos 12/08/20 04:35 A-a Gradient 512.0 mmHg 12/08/20 04:35 FiO2 88.0 12/08/20 04:35 Blood Gas Comments Rigo well ae 12/08/20 04:35 Sodium 147 mmol/L (136-145) H 12/08/20 05:39 Corrected Sodium 149 mmol/L (136-145) H 12/08/20 05:39 Potassium 4.4 mmol/L (3.5-5.1) 12/08/20 05:39 Chloride 112 mmol/L (98-107) H 12/08/20 05:39 Carbon Dioxide 24.0 mmol/L (21-32) 12/08/20 05:39 BUN 28 mg/dL (7-18) H 12/08/20 05:39 Creatinine 1.10 mg/dL (0.55-1.02) H 12/08/20 05:39 Est GFR (MDRD) Af Amer > 60 (>60) 12/08/20 05:39 Est GFR (MDRD) Non-Af 53 (>60) L 12/08/20 05:39 Glucose 181 mg/dL (65-99) H 12/08/20 05:39 POC Glucose (mg/dL) 173 mg/dL (65-99) H 12/08/20 05:06 Lactic Acid 2.2 mmol/L (0.4-2.0) H 12/03/20 10:55 Calcium 8.5 mg/dL (8.5-10.1) 12/08/20 05:39 Corrected Calcium 9.7 mg/dL (8.5-10.1) 12/08/20 05:39 Magnesium 2.5 mg/dL (1.7-2.9) 12/07/20 20:53 Ferritin 1234 ng/mL (8-252) H 12/08/20 05:39 Total Bilirubin 1.00 mg/dL (0.2-1.0) 12/08/20 05:39 AST 34 Units/L (15-37) 12/08/20 05:39 ALT 26 Units/L (12-78) 12/08/20 05:39 Alkaline Phosphatase 39 Units/L (46-116) L 12/08/20 05:39 Creatine Kinase 955 Units/L (26-192) H 12/03/20 10:55 CK-MB (CK-2) < 1.0 ng/mL (0-4.0) 12/03/20 10:55 CK/CKMB % Calc 0.1 % (<4) 12/03/20 10:55 Troponin I < 0.02 ng/mL (0-1.5) 12/03/20 10:55 C-Reactive Protein 6.50 mg/L (0-3.0) H 12/08/20 05:39 B-Natriuretic Peptide 97.1 pg/mL (0-79) H 12/08/20 05:39 Total Protein 6.2 g/dL (6.4-8.2) L 12/08/20 05:39 Albumin 2.5 g/dL (3.4-5.0) L 12/08/20 05:39 Globulin 3.7 g/dL (2.5-4.5) 12/08/20 05:39 Albumin/Globulin Ratio 0.7 Ratio (1.1-2.1) L 12/08/20 05:39 SARS-CoV-2 (PCR) Positive (NEGATIVE) A 12/03/20 12:18 Influenza Type A (PCR) Negative (NEGATIVE) 12/03/20 12:18 Influenza Type B (PCR) Negative (NEGATIVE) 12/03/20 12:18 RSV (PCR) Negative (NEGATIVE) 12/03/20 12:18 Plan (1) Pneumonia due to COVID-19 virus: Status: Acute Plan: Pneumonia protocol
[2020-12-08] MEDS: BROVANA IN SCH ×2 (08:30→21:10)
[2020-12-08] MEDS: PULMICORT NEB TX 0.5 MG NEB SCH ×2 (09:30→21:10)
[2020-12-08] MEDS: ACTOS PO SCH (10:24)
[2020-12-08] MEDS: INVOKANA PO SCH (10:25)
[2020-12-08] MEDS: GLUCOPHAGE XR 24-HR PO SCH ×2 (10:25→20:50)
[2020-12-08] MEDS: FLUVOXAMINE MALEATE PO SCH ×2 (10:25→20:50)
[2020-12-08] MEDS: LOVENOX INJ 100 MG SYR SC SCH ×2 (10:26→20:51)
[2020-12-08] MEDS: IVERMECTIN PO SCH (10:26)
[2020-12-08] MEDS: VITAMIN A PO SCH (10:27)
[2020-12-08] MEDS: PEPCID TAB 40 MG PO SCH ×2 (10:27→20:50)
[2020-12-08] MEDS: THIAMINE HCL INJ IVP SCH ×2 (10:28→20:45)
[2020-12-08] MEDS: VITAMIN D3 125 mcg (5,000 UNITS) PO SCH (10:29)
[2020-12-08] MEDS: PROTONIX INJ 40 MG VIAL IVP SCH ×2 (10:29→20:46)
[2020-12-08] MEDS: ZINC SULFATE PO SCH (10:30)
[2020-12-08] MEDS: ZyrTEC TAB 10 MG PO SCH (10:31)
[2020-12-08] MEDS: LEVAQUIN PREMIX IV 500 MG 500 MG/100 ML BAG IV SCH (12:14)
[2020-12-08] MEDS: HumuLIN R SUBCUT PRN (12:20)
[2020-12-08] MEDS: REMDESIVIR 100 MG in NS 250 ML IV 250 ML IV SCH (20:48)
[2020-12-08] MEDS: MELATONIN PO SCH (20:50)
[2020-12-08] MEDS: LIPITOR TAB 80 MG PO SCH (20:50)
[2020-12-08] MEDS: SINGULAIR TAB 10 MG PO SCH (20:50)
[2020-12-08] MEDS: SNACK - Diabetic Appropriate PO SCH (23:21)
[2020-12-09] MEDS: ASCORBIC ACID INJ MULTI-DOSE VIAL 1,500 MG in NS 50 ML IV 50 ML IV SCH ×4 (02:17→21:00)
[2020-12-09] MEDS: SOLU-Medrol 125 MG VIAL IVP SCH ×4 (02:17→21:00)
[2020-12-09] MEDS: NS 1/2 1000 ML IV 1,000 ML IV SCH ×3 (03:27→17:30)
[2020-12-09] MEDS: CYTOTEC PO SCH ×3 (05:13→21:00)
[2020-12-09] MEDS: TESSALON PERLES PO SCH ×3 (05:13→21:00)
--- NOTE | 2020-12-09 07:53 | RAD ---
HISTORYFollow up pneumoniaSTUDYPortable AP chestCOMPARISONAugust 2020FINDINGSThere is no change in heart size or configuration. Persistent but slightly improving bilateral airspace disease. There is no evidence for developing pleural effusion or pneumothorax.IMPRESSIONSlight interval improvement in bilateral pneumonia without new abnormality identified.Electronically signed by: ARNALDO STROUD (Dec 09, 2020 07:51:39)
[2020-12-09] MEDS: VITAMIN D3 125 mcg (5,000 UNITS) PO SCH (09:00)
[2020-12-09] MEDS: VITAMIN A PO SCH (09:00)
[2020-12-09] MEDS: LEVAQUIN PREMIX IV 500 MG 500 MG/100 ML BAG IV SCH (09:07)
[2020-12-09] MEDS: BROVANA IN SCH ×2 (09:15→20:47)
[2020-12-09] MEDS: PULMICORT NEB TX 0.5 MG NEB SCH ×2 (09:15→20:47)
--- NOTE | 2020-12-09 09:56 | PCM.PROG ---
Progress Note Progress Note for Day of Date of Exam: 12/08/20 Subjective Subjective: Pt is a 65 year old female admitted for COVID-19 pneumonia with hypoxia. She is sitting up in bed this morning. No significant change in her respiratory status or acute events overnight. She is currently utilizing heated high flow oxygen at FiO2 87%. Labs/imaging: Wbc 7.3, Hgb 12.7, Plt 268, Na 147, K 4.4, Creatinine 1.10, Glucose 181, CRP 6.50, ABG: pH 7.4, pCO2 35, pO2 72, HCO3 21, O2 sat 94% on HHF@88%. CXR this morning was obtained that revealed: Patchy bilateral areas of airspace opacity are present. The findings may have progressed slightly, particularly on the right side. Pt is a on current treatment course that includes: IVF 1/2 NS@80ml/h, Remdesivir, Solumedrol 125mg q6h, scheduled Bronchodilators, Antibiotics: Levaquin, Cytotec, Fluvoxamine, Ivermectin, Full dose Lovenox, immune supporting supplements, supplemental O2, I/S, Respiratory therapy consult, Pneumonia protocol. Wean/titrate oxygen as tolerated. Increase free water intake for mild hypernatremia. Order physical therapy. Otherwise, will continue current treatment plan. Monitor closely and follow up labs/imaging in the morning. Time spent on clinical assessment, reviewing labs and imaging, decision making, and documentation greater than 45 minutes. Past Medical Family Social History Past Med/Fam/Surg Hx: No changes since H&P Allergies: Allergies No Known Drug Allergies Allergy (Verified 05/13/20 08:54) Review of Systems ROS: No change since H&P Vital Signs and I&O's Vital Signs: Temperature 97.8 F Pulse Rate [Left] 66 Pulse Rate 71 Respiratory Rate 20 Blood Pressure [Left Arm] 104/56 Blood Pressure [Right Arm] 115/60 Blood Pressure 176/77 O2 Sat by Pulse Oximetry 90 Intake and Output: Intake & Output 12/06/20 12/07/20 12/08/20 12/09/20 23:59 23:59 23:59 23:59 Intake Total 2888 / 2888 4108 / 4108 2773 / 2773 695 / 695 Output Total Balance 2887 / 2887 4108 / 4108 2773 / 2773 695 / 695 Physical Exam Oriented: Normal Eyes: Normal Ear: Normal Nose: Normal Throat: Normal Respiratory: Diminished Cardiovascular: Normal : Normal Auscultation: Bowel Sounds: Normal Tenderness: Normal Skin: Normal Musculoskeletal: Normal Psychiatric: Normal Mood Description: Calm Speech Pattern: Clear and Appropriate Laboratory and Diagnostics Result Diagrams: 12/08/20 05:39 12/08/20 05:39 Labs: 12/03/20 10:55 Blood Blood Culture - Final 12/03/20 10:50 Blood Blood Culture - Final 12/04/20 21:15 Sputum - Expectorated Sputum Sputum Culture - Final Pseudomonas Aeruginosa 12/04/20 21:15 Sputum - Expectorated Sputum - Final Laboratory WBC 7.3 X10^3/uL (3.6-10.0) 12/08/20 05:39 RBC 4.14 X10^6/uL (3.5-5.4) 12/08/20 05:39 Hgb 12.7 g/dL (12.0-16.0) 12/08/20 05:39 Hct 38.3 % (36.0-47.0) 12/08/20 05:39 MCV 92.4 fL (80.0-100.0) 12/08/20 05:39 MCH 30.7 pg (27.0-34.0) 12/08/20 05:39 MCHC 33.2 g/dL (33.0-35.0) 12/08/20 05:39 RDW 13.2 % (11.6-16.5) 12/08/20 05:39 Plt Count 268 X10^3/uL (150.0-450.0) 12/08/20 05:39 MPV 11.1 fL (7.4-11.0) H 12/08/20 05:39 Neut % (Auto) 82.8 % (42.0-75.0) H 12/08/20 05:39 Lymph % (Auto) 11.1 % (21.0-51.0) L 12/08/20 05:39 [place] % (Auto) 6.0 % (0.0-13.0) 12/08/20 05:39 Eos % (Auto) 0.0 % (0.9-2.9) L 12/08/20 05:39 Baso % (Auto) 0.1 % (0.2-1.0) L 12/08/20 05:39 Neut # (Auto) 6.0 x10^3/uL (2.2-4.8) H 12/08/20 05:39 Lymph # (Auto) 0.8 X10^3/uL (1.3-2.9) L 12/08/20 05:39 [place] # (Auto) 0.4 x10^3/uL (0.3-0.8) 12/08/20 05:39 Eos # (Auto) 0.0 x10^3/uL (0.0-0.2) 12/08/20 05:39 Baso # (Auto) 0.0 X10^3/uL (0.0-0.1) 12/08/20 05:39 Absolute Nucleated RBC 0.3 /100WBC 12/08/20 05:39 D-Dimer 0.39 ug/ml (0.0-0.57) 12/08/20 05:39 Sample Site Lr 12/08/20 04:35 ABG pH 7.400 (7.35-7.45) 12/08/20 04:35 ABG pCO2 35.0 mmHg (35.0-45.0) 12/08/20 04:35 ABG pO2 72.0 mmHg (80.0-100.0) L 12/08/20 04:35 ABG HCO3 21.7 mmol/L (22-26) L 12/08/20 04:35 ABG O2 Saturation 94.0 % (90-100) 12/08/20 04:35 ABG Base Excess -2.6 mmol/L (-2.0-2.0) L 12/08/20 04:35 Agusto Test Pos 12/08/20 04:35 A-a Gradient 512.0 mmHg 12/08/20 04:35 FiO2 88.0 12/08/20 04:35 Blood Gas Comments Rigo well ae 12/08/20 04:35 Sodium 147 mmol/L (136-145) H 12/08/20 05:39 Corrected Sodium 149 mmol/L (136-145) H 12/08/20 05:39 Potassium 4.4 mmol/L (3.5-5.1) 12/08/20 05:39 Chloride 112 mmol/L (98-107) H 12/08/20 05:39 Carbon Dioxide 24.0 mmol/L (21-32) 12/08/20 05:39 BUN 28 mg/dL (7-18) H 12/08/20 05:39 Creatinine 1.10 mg/dL (0.55-1.02) H 12/08/20 05:39 Est GFR (MDRD) Af Amer > 60 (>60) 12/08/20 05:39 Est GFR (MDRD) Non-Af 53 (>60) L 12/08/20 05:39 Glucose 181 mg/dL (65-99) H 12/08/20 05:39 POC Glucose (mg/dL) 144 mg/dL (65-99) H 12/09/20 05:38 Lactic Acid 2.2 mmol/L (0.4-2.0) H 12/03/20 10:55 Calcium 8.5 mg/dL (8.5-10.1) 12/08/20 05:39 Corrected Calcium 9.7 mg/dL (8.5-10.1) 12/08/20 05:39 Magnesium 2.5 mg/dL (1.7-2.9) 12/07/20 20:53 Ferritin 1234 ng/mL (8-252) H 12/08/20 05:39 Total Bilirubin 1.00 mg/dL (0.2-1.0) 12/08/20 05:39 AST 34 Units/L (15-37) 12/08/20 05:39 ALT 26 Units/L (12-78) 12/08/20 05:39 Alkaline Phosphatase 39 Units/L (46-116) L 12/08/20 05:39 Creatine Kinase 955 Units/L (26-192) H 12/03/20 10:55 CK-MB (CK-2) < 1.0 ng/mL (0-4.0) 12/03/20 10:55 CK/CKMB % Calc 0.1 % (<4) 12/03/20 10:55 Troponin I < 0.02 ng/mL (0-1.5) 12/03/20 10:55 C-Reactive Protein 6.50 mg/L (0-3.0) H 12/08/20 05:39 B-Natriuretic Peptide 97.1 pg/mL (0-79) H 12/08/20 05:39 Total Protein 6.2 g/dL (6.4-8.2) L 12/08/20 05:39 Albumin 2.5 g/dL (3.4-5.0) L 12/08/20 05:39 Globulin 3.7 g/dL (2.5-4.5) 12/08/20 05:39 Albumin/Globulin Ratio 0.7 Ratio (1.1-2.1) L 12/08/20 05:39 SARS-CoV-2 (PCR) Positive (NEGATIVE) A 12/03/20 12:18 Influenza Type A (PCR) Negative (NEGATIVE) 12/03/20 12:18 Influenza Type B (PCR) Negative (NEGATIVE) 12/03/20 12:18 RSV (PCR) Negative (NEGATIVE) 12/03/20 12:18 Plan (1) Pneumonia due to COVID-19 virus: Status: Acute Plan: Pneumonia protocol
[2020-12-09] MEDS: ZyrTEC TAB 10 MG PO SCH (10:00)
[2020-12-09] MEDS: ZINC SULFATE PO SCH (10:00)
[2020-12-09] MEDS: ACTOS PO SCH (10:00)
[2020-12-09] MEDS: GLUCOPHAGE XR 24-HR PO SCH ×2 (10:00→21:00)
[2020-12-09] MEDS: PROTONIX INJ 40 MG VIAL IVP SCH ×2 (10:00→21:00)
[2020-12-09] MEDS: THIAMINE HCL INJ IVP SCH ×2 (10:00→21:00)
[2020-12-09] MEDS: PEPCID TAB 40 MG PO SCH ×2 (10:00→21:00)
[2020-12-09] MEDS: INVOKANA PO SCH (10:00)
[2020-12-09] MEDS: FLUVOXAMINE MALEATE PO SCH ×2 (10:28→21:00)
[2020-12-09] MEDS: LOVENOX INJ 100 MG SYR SC SCH (10:29)
--- NOTE | 2020-12-09 15:08 | PCM.PROG ---
Progress Note Progress Note for Day of Date of Exam: 12/09/20 Subjective Subjective: Pt is a 65 year old female admitted for COVID-19 pneumonia with hypoxia. This morning she reports some improvement in her breathing. She states she worked with physical therapy yesterday and strength has improved a little. She is currently utilizing heated high flow oxygen at FiO2 70%. Labs/imaging: Pending. Pt having difficulty with IV access, will get PICC line placement. CXR this morning was obtained that revealed: Slight interval improvement in bilateral pneumonia without new abnormality identified. Sputum culture positive for Pseudomonas, treated with antibiotics. Pt is a on current treatment course that includes: IVF / NS@80ml/h, Remdesivir, Solumedrol 125mg q6h, scheduled Br onchodilators, Antibiotics: Levaquin, Cytotec, Fluvoxamine, Ivermectin, Full dose Lovenox, immune supporting supplements, supplemental O2, I/S, Respiratory therapy consult, Pneumonia protocol, Physical therapy. Wean/titrate oxygen as tolerated. Will continue to monitor closely and follow up labs/imaging in the morning. Time spent on clinical assessment, reviewing labs and imaging, decision making, and documentation greater than 45 minutes. Past Medical Family Social History Past Med/Fam/Surg Hx: No changes since H&P Allergies: Allergies No Known Drug Allergies Allergy (Verified 05/13/20 08:54) Review of Systems ROS: No change since H&P Vital Signs and I&O's Vital Signs: Temperature 97.7 F Pulse Rate [Left] 62 Pulse Rate 54 Respiratory Rate 20 Blood Pressure [Left Arm] 97/56 Blood Pressure [Right Arm] 115/60 Blood Pressure 176/77 O2 Sat by Pulse Oximetry 90 Intake and Output: Intake & Output 12/06/20 12/07/20 12/08/20 12/09/20 23:59 23:59 23:59 23:59 Intake Total 2888 / 2888 4108 / 4108 2773 / 2773 695 / 695 Output Total Balance 2887 / 2887 4108 / 4108 2773 / 2773 695 / 695 Physical Exam Oriented: Normal Eyes: Normal Ear: Normal Nose: Normal Throat: Normal Respiratory: Diminished Cardiovascular: Normal : Normal Auscultation: Bowel Sounds: Normal Tenderness: Normal Skin: Normal Musculoskeletal: Normal Psychiatric: Normal Mood Description: Calm Speech Pattern: Clear and Appropriate Laboratory and Diagnostics Result Diagrams: 12/09/20 15:28 12/08/20 05:39 Labs: 12/03/20 10:55 Blood Blood Culture - Final 12/03/20 10:50 Blood Blood Culture - Final 12/04/20 21:15 Sputum - Expectorated Sputum Sputum Culture - Final Pseudomonas Aeruginosa 12/04/20 21:15 Sputum - Expectorated Sputum - Final Laboratory WBC 7.3 X10^3/uL (3.6-10.0) 12/08/20 05:39 RBC 4.14 X10^6/uL (3.5-5.4) 12/08/20 05:39 Hgb 12.7 g/dL (12.0-16.0) 12/08/20 05:39 Hct 38.3 % (36.0-47.0) 12/08/20 05:39 MCV 92.4 fL (80.0-100.0) 12/08/20 05:39 MCH 30.7 pg (27.0-34.0) 12/08/20 05:39 MCHC 33.2 g/dL (33.0-35.0) 12/08/20 05:39 RDW 13.2 % (11.6-16.5) 12/08/20 05:39 Plt Count 268 X10^3/uL (150.0-450.0) 12/08/20 05:39 MPV 11.1 fL (7.4-11.0) H 12/08/20 05:39 Neut % (Auto) 82.8 % (42.0-75.0) H 12/08/20 05:39 Lymph % (Auto) 11.1 % (21.0-51.0) L 12/08/20 05:39 [place] % (Auto) 6.0 % (0.0-13.0) 12/08/20 05:39 Eos % (Auto) 0.0 % (0.9-2.9) L 12/08/20 05:39 Baso % (Auto) 0.1 % (0.2-1.0) L 12/08/20 05:39 Neut # (Auto) 6.0 x10^3/uL (2.2-4.8) H 12/08/20 05:39 Lymph # (Auto) 0.8 X10^3/uL (1.3-2.9) L 12/08/20 05:39 [place] # (Auto) 0.4 x10^3/uL (0.3-0.8) 12/08/20 05:39 Eos # (Auto) 0.0 x10^3/uL (0.0-0.2) 12/08/20 05:39 Baso # (Auto) 0.0 X10^3/uL (0.0-0.1) 12/08/20 05:39 Absolute Nucleated RBC 0.3 /100WBC 12/08/20 05:39 D-Dimer 0.39 ug/ml (0.0-0.57) 12/08/20 05:39 Sample Site Lr 12/08/20 04:35 ABG pH 7.400 (7.35-7.45) 12/08/20 04:35 ABG pCO2 35.0 mmHg (35.0-45.0) 12/08/20 04:35 ABG pO2 72.0 mmHg (80.0-100.0) L 12/08/20 04:35 ABG HCO3 21.7 mmol/L (22-26) L 12/08/20 04:35 ABG O2 Saturation 94.0 % (90-100) 12/08/20 04:35 ABG Base Excess -2.6 mmol/L (-2.0-2.0) L 12/08/20 04:35 Agusto Test Pos 12/08/20 04:35 A-a Gradient 512.0 mmHg 12/08/20 04:35 FiO2 88.0 12/08/20 04:35 Blood Gas Comments Rigo well ae 12/08/20 04:35 Sodium 147 mmol/L (136-145) H 12/08/20 05:39 Corrected Sodium 149 mmol/L (136-145) H 12/08/20 05:39 Potassium 4.4 mmol/L (3.5-5.1) 12/08/20 05:39 Chloride 112 mmol/L (98-107) H 12/08/20 05:39 Carbon Dioxide 24.0 mmol/L (21-32) 12/08/20 05:39 BUN 28 mg/dL (7-18) H 12/08/20 05:39 Creatinine 1.10 mg/dL (0.55-1.02) H 12/08/20 05:39 Est GFR (MDRD) Af Amer > 60 (>60) 12/08/20 05:39 Est GFR (MDRD) Non-Af 53 (>60) L 12/08/20 05:39 Glucose 181 mg/dL (65-99) H 12/08/20 05:39 POC Glucose (mg/dL) 144 mg/dL (65-99) H 12/09/20 05:38 Lactic Acid 2.2 mmol/L (0.4-2.0) H 12/03/20 10:55 Calcium 8.5 mg/dL (8.5-10.1) 12/08/20 05:39 Corrected Calcium 9.7 mg/dL (8.5-10.1) 12/08/20 05:39 Magnesium 2.5 mg/dL (1.7-2.9) 12/07/20 20:53 Ferritin 1234 ng/mL (8-252) H 12/08/20 05:39 Total Bilirubin 1.00 mg/dL (0.2-1.0) 12/08/20 05:39 AST 34 Units/L (15-37) 12/08/20 05:39 ALT 26 Units/L (12-78) 12/08/20 05:39 Alkaline Phosphatase 39 Units/L (46-116) L 12/08/20 05:39 Creatine Kinase 955 Units/L (26-192) H 12/03/20 10:55 CK-MB (CK-2) < 1.0 ng/mL (0-4.0) 12/03/20 10:55 CK/CKMB % Calc 0.1 % (<4) 12/03/20 10:55 Troponin I < 0.02 ng/mL (0-1.5) 12/03/20 10:55 C-Reactive Protein 6.50 mg/L (0-3.0) H 12/08/20 05:39 B-Natriuretic Peptide 97.1 pg/mL (0-79) H 12/08/20 05:39 Total Protein 6.2 g/dL (6.4-8.2) L 12/08/20 05:39 Albumin 2.5 g/dL (3.4-5.0) L 12/08/20 05:39 Globulin 3.7 g/dL (2.5-4.5) 12/08/20 05:39 Albumin/Globulin Ratio 0.7 Ratio (1.1-2.1) L 12/08/20 05:39 SARS-CoV-2 (PCR) Positive (NEGATIVE) A 12/03/20 12:18 Influenza Type A (PCR) Negative (NEGATIVE) 12/03/20 12:18 Influenza Type B (PCR) Negative (NEGATIVE) 12/03/20 12:18 RSV (PCR) Negative (NEGATIVE) 12/03/20 12:18 Plan (1) Pneumonia due to COVID-19 virus: Status: Acute Plan: Pneumonia protocol
[2020-12-09] MEDS ORDERED: NS 1/2 1000 ML IV 1,000 ML IV ONE (15:20)
--- NOTE | 2020-12-09 15:38 | RAD ---
HISTORYPICC LINE INSERTION- COVID 19, PNA, HYPOXIASTUDYCHEST, 1 VIEWCOMPARISONSeptember 2020 at 4:01 a.m.TECHNIQUEChest radiographic imaging, AP portable projection, 1 imageFINDINGSNo cardiomegaly.Diffuse right and mid left airspace opacities; without significant change.Surgical clips in the right axilla.Interval placement of a left PICC with the tip overlying the cavoatrial junction.No pleural effusion.No pneumothorax.No acute osseous abnormality.IMPRESSION1. No significant interval acute cardiopulmonary changes.2. Left PICC tip overlies the cavoatrial junction.Electronically signed by: Tawanda Saucedo (Dec 09, 2020 15:36:31)
--- NOTE | 2020-12-09 15:41 | DR.UPDATE ---
H&P Update History and Physical Update: History and Physical reviewed and patient examined. Changes noted: NO Yes with the following:will place picc H&P Reviewed: Yes Patient was examined?: Yes Procedures (ALL) - Central Line Placement PCM.CLCO: written consent Time out performed: Yes Patient placed pm monitor/pulse ox: Yes MD prep: mask, gown, gloves, other Centrial line prep: chlorhexidine scrub, sterile drapes applied Local anesthsia used: lidocane 1% Ultrasound used for placement: Yes (small right brachial id'd via u/s. cannulation visualized) Central line lumen ininserted: double (5.5fr arrowpicc) Post procedure: good blood return, all ports aspirated, flushed,capped, sterile dressing applied Post procedure xray: tip oc catheter in good position, no pneumothorax seen Patient tolerated procedure: Yes Complications: none
[2020-12-09 15:46] LABS: BASOPHILS % (AUTO) 0.2 % (0.2-1.0); HEMOGLOBIN 11.4 g/dL (12.0-16.0); LYMPHOCYTES # (AUTO) 0.5 X10^3/uL (1.3-2.9); LYMPHOCYTES % (AUTO) 8.3 % (21.0-51.0); MEAN CORPUSCULAR HEMOGLOBIN 31.1 pg (27.0-34.0); MEAN CORPUSCULAR HGB CONC 33.5 g/dL (33.0-35.0); MEAN CORPUSCULAR VOLUME 92.6 fL (80.0-100.0); MEAN PLATELET VOLUME 10.4 fL (7.4-11.0); MONOCYTES # (AUTO) 0.5 x10^3/uL (0.3-0.8); MONOCYTES % (AUTO) 7.5 % (0.0-13.0); NEUTROPHILS # (AUTO) 5.4 x10^3/uL (2.2-4.8); PLATELET COUNT 272 X10^3/uL (150.0-450.0); RED BLOOD COUNT 3.67 X10^6/uL (3.5-5.4); RED CELL DISTRIBUTION WIDTH 13.5 % (11.6-16.5); WHITE BLOOD COUNT 6.5 X10^3/uL (3.6-10.0)
[2020-12-09 16:07] LABS: ALANINE AMINOTRANSFERASE 25 Units/L (12-78); ALBUMIN 2.3 g/dL (3.4-5.0); ALKALINE PHOSPHATASE 36 Units/L (46-116); ASPARTATE AMINO TRANSFERASE 31 Units/L (15-37); BLOOD UREA NITROGEN 31 mg/dL (7-18); CALCIUM 7.8 mg/dL (8.5-10.1); CARBON DIOXIDE 20.5 mmol/L (21-32); CHLORIDE 111 mmol/L (98-107); COR CA(FOR HYPOALB) 9.2 mg/dL (8.5-10.1); COR NA(FOR HYPERGLY) 150 mmol/L (136-145); CREATININE 1.04 mg/dL (0.55-1.02); SODIUM 147 mmol/L (136-145); TOTAL PROTEIN 5.5 g/dL (6.4-8.2); eGFR NON BLACK RACES 57 (>60)
[2020-12-09] MEDS ORDERED: LEVSIN/MAALOX/LIDOC VISC PO ONE (17:46)
[2020-12-09] MEDS: K-DUR TAB 20 MEQ PO PRN (18:44)
[2020-12-09] MEDS: SINGULAIR TAB 10 MG PO SCH (21:00)
[2020-12-09] MEDS: SNACK - Diabetic Appropriate PO SCH (21:00)
[2020-12-09] MEDS: MELATONIN PO SCH (21:00)
[2020-12-09] MEDS: LIPITOR TAB 80 MG PO SCH (21:00)
[2020-12-09] MEDS: REMDESIVIR 100 MG in NS 250 ML IV 250 ML IV SCH (21:00)
[2020-12-10] MEDS: LOVENOX INJ 100 MG SYR SC SCH ×2 (00:31→09:55)
[2020-12-10] MEDS: SOLU-Medrol 125 MG VIAL IVP SCH ×4 (03:30→21:14)
[2020-12-10] MEDS: ASCORBIC ACID INJ MULTI-DOSE VIAL 1,500 MG in NS 50 ML IV 50 ML IV SCH ×4 (04:00→21:04)
[2020-12-10] MEDS: CYTOTEC PO SCH ×3 (06:01→22:25)
[2020-12-10] MEDS: TESSALON PERLES PO SCH ×3 (06:02→22:26)
[2020-12-10 06:48] LABS: BASOPHILS % (AUTO) 0.1 % (0.2-1.0); HEMATOCRIT 34.8 % (36.0-47.0); HEMOGLOBIN 11.5 g/dL (12.0-16.0); LYMPHOCYTES # (AUTO) 0.4 X10^3/uL (1.3-2.9); LYMPHOCYTES % (AUTO) 6.2 % (21.0-51.0); MEAN CORPUSCULAR HEMOGLOBIN 30.9 pg (27.0-34.0); MEAN CORPUSCULAR HGB CONC 33.1 g/dL (33.0-35.0); MEAN CORPUSCULAR VOLUME 93.4 fL (80.0-100.0); MEAN PLATELET VOLUME 10.9 fL (7.4-11.0); MONOCYTES # (AUTO) 0.5 x10^3/uL (0.3-0.8); MONOCYTES % (AUTO) 7.2 % (0.0-13.0); NEUTROPHILS % (AUTO) 86.5 % (42.0-75.0); PLATELET COUNT 274 X10^3/uL (150.0-450.0); RED BLOOD COUNT 3.72 X10^6/uL (3.5-5.4); RED CELL DISTRIBUTION WIDTH 13.4 % (11.6-16.5)
[2020-12-10 07:19] LABS: ALANINE AMINOTRANSFERASE 28 Units/L (12-78); ALBUMIN 2.6 g/dL (3.4-5.0); ALKALINE PHOSPHATASE 40 Units/L (46-116); ASPARTATE AMINO TRANSFERASE 33 Units/L (15-37); BLOOD UREA NITROGEN 29 mg/dL (7-18); CALCIUM 8.1 mg/dL (8.5-10.1); CARBON DIOXIDE 16.4 mmol/L (21-32); CHLORIDE 112 mmol/L (98-107); COR CA(FOR HYPOALB) 9.2 mg/dL (8.5-10.1); COR NA(FOR HYPERGLY) 151 mmol/L (136-145); CREATININE 0.96 mg/dL (0.55-1.02); SODIUM 149 mmol/L (136-145); TOTAL PROTEIN 5.8 g/dL (6.4-8.2); eGFR NON BLACK RACES > 60 (>60)
--- NOTE | 2020-12-10 08:07 | RAD ---
HISTORYPNEUMONIA F/USTUDYCHEST, 1 [id number]/01/2021FINDINGSPatchy areas of opacity in the lungs representing bronchopneumonia are not significantly changed.No pleural effusion or pneumothorax.Heart size is normal.Bones are unremarkable.A left peripherally inserted central catheter is present with the tip in the expected location of the superior vena cava. EKG leads are noted.IMPRESSION1. Unchanged bronchopneumoniaElectronically signed by: Cleveland Montes (Dec 10, 2020 08:05:48)
[2020-12-10] MEDS: VITAMIN A PO SCH (09:30)
[2020-12-10] MEDS: THIAMINE HCL INJ IVP SCH (09:35)
[2020-12-10] MEDS ORDERED: NS 1/2 1000 ML IV 1,000 ML IV ONE (09:37)
[2020-12-10] MEDS: PEPCID TAB 40 MG PO SCH ×2 (09:45→21:12)
[2020-12-10] MEDS: ZyrTEC TAB 10 MG PO SCH (09:45)
[2020-12-10] MEDS: NS 1/2 1000 ML IV 1,000 ML IV SCH (09:45)
[2020-12-10] MEDS: ZINC SULFATE PO SCH (09:45)
[2020-12-10] MEDS: FLUVOXAMINE MALEATE PO SCH ×2 (09:45→21:06)
[2020-12-10] MEDS: GLUCOPHAGE XR 24-HR PO SCH ×2 (09:45→21:09)
[2020-12-10] MEDS: ACTOS PO SCH (09:46)
[2020-12-10] MEDS: K-DUR TAB 20 MEQ PO PRN (09:46)
[2020-12-10] MEDS: PROTONIX INJ 40 MG VIAL IVP SCH ×2 (09:46→21:13)
[2020-12-10] MEDS: TUSSIONEX PENNKINETIC SUSP PO PRN (09:46)
[2020-12-10] MEDS: VITAMIN D3 125 mcg (5,000 UNITS) PO SCH (09:47)
[2020-12-10] MEDS: BROVANA IN SCH ×2 (09:49→21:00)
[2020-12-10] MEDS: PULMICORT NEB TX 0.5 MG NEB SCH ×2 (09:49→21:00)
[2020-12-10] MEDS: INVOKANA PO SCH (09:54)
[2020-12-10] MEDS: LEVAQUIN PREMIX IV 500 MG 500 MG/100 ML BAG IV SCH (11:30)
[2020-12-10 13:32] VITALS: BMI 37.9
[2020-12-10] MEDS: SNACK - Diabetic Appropriate PO SCH (20:05)
[2020-12-10] MEDS: REMDESIVIR 100 MG in NS 250 ML IV 250 ML IV SCH (20:27)
[2020-12-10] MEDS: LIPITOR TAB 80 MG PO SCH (21:00)
[2020-12-10] MEDS: MELATONIN PO SCH (21:10)
[2020-12-10] MEDS: SINGULAIR TAB 10 MG PO SCH (21:13)
[2020-12-10] MEDS: HumuLIN R SUBCUT PRN (21:15)
--- NOTE | 2020-12-10 22:57 | PCM.PROG ---
Progress Note Progress Note for Day of Date of Exam: 12/10/20 Subjective Subjective: Pt is a 65 year old female admitted for COVID-19 pneumonia with hypoxia. Pt is resting in bed on exam this morning. She has been using the incentive spirometer and has had some improvement in her respiratory status. She is currently utilizing heated high flow oxygen at FiO2 48%. Labs/imaging: Wbc 7, Hgb 11.5, Plt 274, Na 149, K 3.6, Creatinine 0.96, Glucose 196. CXR this morning was obtained that revealed: Patchy areas of opacity in the lungs representing bronchopneumonia are not significantly changed. Sputum culture positive for Pseudomonas, treated with antibiotics. Pt is a on current treatment course that includes: IVF 1/2 NS@80ml/h, Remdesivir, Solumedrol 125mg q6h, scheduled Bro nchodilators, Antibiotics: Levaquin, Cytotec, Fluvoxamine, Ivermectin, Full dose Lovenox, immune supporting supplements, supplemental O2, I/S, Respiratory therapy consult, Pneumonia protocol, Physical therapy. Wean/titrate oxygen as tolerated. Will try to convert to nasal cannula today. Continue to monitor closely and follow up labs/imaging in the morning. Time spent on clinical assessment, reviewing labs and imaging, decision making, and documentation greater than 45 minutes. Past Medical Family Social History Past Med/Fam/Surg Hx: No changes since H&P Allergies: Allergies No Known Drug Allergies Allergy (Verified 05/13/20 08:54) Review of Systems ROS: No change since H&P Vital Signs and I&O's Vital Signs: Temperature 98.1 F Pulse Rate [Left] 80 Pulse Rate 81 Respiratory Rate 20 Blood Pressure [Left Arm] 135/56 Blood Pressure [Right Arm] 115/60 Blood Pressure 176/77 O2 Sat by Pulse Oximetry 95 Intake and Output: Intake & Output 12/07/20 12/08/20 12/09/20 12/10/20 23:59 23:59 23:59 23:59 Intake Total 4108 / 4108 2773 / 2773 1190 / 1190 480 / 480 Balance 4108 / 4108 2773 / 2773 1190 / 1190 480 / 480 Physical Exam Oriented: Normal Eyes: Normal Ear: Normal Nose: Normal Throat: Normal Respiratory: Diminished Cardiovascular: Normal : Normal Auscultation: Bowel Sounds: Normal Tenderness: Normal Skin: Normal Musculoskeletal: Normal Psychiatric: Normal Mood Description: Calm Speech Pattern: Clear and Appropriate Laboratory and Diagnostics Result Diagrams: 12/10/20 05:35 12/10/20 05:35 Labs: 12/03/20 10:55 Blood Blood Culture - Final 12/03/20 10:50 Blood Blood Culture - Final 12/04/20 21:15 Sputum - Expectorated Sputum Sputum Culture - Final Pseudomonas Aeruginosa 12/04/20 21:15 Sputum - Expectorated Sputum - Final Laboratory WBC 7.0 X10^3/uL (3.6-10.0) 12/10/20 05:35 RBC 3.72 X10^6/uL (3.5-5.4) 12/10/20 05:35 Hgb 11.5 g/dL (12.0-16.0) L 12/10/20 05:35 Hct 34.8 % (36.0-47.0) L 12/10/20 05:35 MCV 93.4 fL (80.0-100.0) 12/10/20 05:35 MCH 30.9 pg (27.0-34.0) 12/10/20 05:35 MCHC 33.1 g/dL (33.0-35.0) 12/10/20 05:35 RDW 13.4 % (11.6-16.5) 12/10/20 05:35 Plt Count 274 X10^3/uL (150.0-450.0) 12/10/20 05:35 MPV 10.9 fL (7.4-11.0) 12/10/20 05:35 Neut % (Auto) 86.5 % (42.0-75.0) H 12/10/20 05:35 Lymph % (Auto) 6.2 % (21.0-51.0) L 12/10/20 05:35 [place] % (Auto) 7.2 % (0.0-13.0) 12/10/20 05:35 Eos % (Auto) 0.0 % (0.9-2.9) L 12/10/20 05:35 Baso % (Auto) 0.1 % (0.2-1.0) L 12/10/20 05:35 Neut # (Auto) 6.0 x10^3/uL (2.2-4.8) H 12/10/20 05:35 Lymph # (Auto) 0.4 X10^3/uL (1.3-2.9) L 12/10/20 05:35 [place] # (Auto) 0.5 x10^3/uL (0.3-0.8) 12/10/20 05:35 Eos # (Auto) 0.0 x10^3/uL (0.0-0.2) 12/10/20 05:35 Baso # (Auto) 0.0 X10^3/uL (0.0-0.1) 12/10/20 05:35 Absolute Nucleated RBC 0.1 /100WBC 12/10/20 05:35 D-Dimer 0.39 ug/ml (0.0-0.57) 12/08/20 05:39 Sample Site Lr 12/08/20 04:35 ABG pH 7.400 (7.35-7.45) 12/08/20 04:35 ABG pCO2 35.0 mmHg (35.0-45.0) 12/08/20 04:35 ABG pO2 72.0 mmHg (80.0-100.0) L 12/08/20 04:35 ABG HCO3 21.7 mmol/L (22-26) L 12/08/20 04:35 ABG O2 Saturation 94.0 % (90-100) 12/08/20 04:35 ABG Base Excess -2.6 mmol/L (-2.0-2.0) L 12/08/20 04:35 Agusto Test Pos 12/08/20 04:35 A-a Gradient 512.0 mmHg 12/08/20 04:35 FiO2 88.0 12/08/20 04:35 Blood Gas Comments Rigo well ae 12/08/20 04:35 Sodium 149 mmol/L (136-145) H 12/10/20 05:35 Corrected Sodium 151 mmol/L (136-145) H 12/10/20 05:35 Potassium 3.6 mmol/L (3.5-5.1) 12/10/20 05:35 Chloride 112 mmol/L (98-107) H 12/10/20 05:35 Carbon Dioxide 16.4 mmol/L (21-32) L 12/10/20 05:35 BUN 29 mg/dL (7-18) H 12/10/20 05:35 Creatinine 0.96 mg/dL (0.55-1.02) 12/10/20 05:35 Est GFR (MDRD) Af Amer > 60 (>60) 12/10/20 05:35 Est GFR (MDRD) Non-Af > 60 (>60) 12/10/20 05:35 Glucose 196 mg/dL (65-99) H 12/10/20 05:35 POC Glucose (mg/dL) 184 mg/dL (65-99) H 12/10/20 20:36 Lactic Acid 2.2 mmol/L (0.4-2.0) H 12/03/20 10:55 Calcium 8.1 mg/dL (8.5-10.1) L 12/10/20 05:35 Corrected Calcium 9.2 mg/dL (8.5-10.1) 12/10/20 05:35 Magnesium 2.9 mg/dL (1.7-2.9) 12/10/20 05:35 Ferritin 1234 ng/mL (8-252) H 12/08/20 05:39 Total Bilirubin 1.20 mg/dL (0.2-1.0) H 12/10/20 05:35 AST 33 Units/L (15-37) 12/10/20 05:35 ALT 28 Units/L (12-78) 12/10/20 05:35 Alkaline Phosphatase 40 Units/L (46-116) L 12/10/20 05:35 Creatine Kinase 955 Units/L (26-192) H 12/03/20 10:55 CK-MB (CK-2) < 1.0 ng/mL (0-4.0) 12/03/20 10:55 CK/CKMB % Calc 0.1 % (<4) 12/03/20 10:55 Troponin I < 0.02 ng/mL (0-1.5) 12/03/20 10:55 C-Reactive Protein 6.50 mg/L (0-3.0) H 12/08/20 05:39 B-Natriuretic Peptide 97.1 pg/mL (0-79) H 12/08/20 05:39 Total Protein 5.8 g/dL (6.4-8.2) L 12/10/20 05:35 Albumin 2.6 g/dL (3.4-5.0) L 12/10/20 05:35 Globulin 3.2 g/dL (2.5-4.5) 12/10/20 05:35 Albumin/Globulin Ratio 0.8 Ratio (1.1-2.1) L 12/10/20 05:35 SARS-CoV-2 (PCR) Positive (NEGATIVE) A 12/03/20 12:18 Influenza Type A (PCR) Negative (NEGATIVE) 12/03/20 12:18 Influenza Type B (PCR) Negative (NEGATIVE) 12/03/20 12:18 RSV (PCR) Negative (NEGATIVE) 12/03/20 12:18 Plan (1) Pneumonia due to COVID-19 virus: Status: Acute Plan: Pneumonia protocol
[2020-12-11] MEDS: LOVENOX INJ 100 MG SYR SC SCH (02:10)
[2020-12-11] MEDS: THIAMINE HCL INJ IVP SCH ×2 (02:15→09:00)
[2020-12-11] MEDS: SOLU-Medrol 125 MG VIAL IVP SCH ×2 (03:00→09:18)
[2020-12-11] MEDS: ASCORBIC ACID INJ MULTI-DOSE VIAL 1,500 MG in NS 50 ML IV 50 ML IV SCH ×2 (03:00→09:18)
[2020-12-11] MEDS ORDERED: NS 1/2 1000 ML IV 1,000 ML IV ONE (04:32)
[2020-12-11] MEDS: TESSALON PERLES PO SCH ×3 (06:00→21:58)
[2020-12-11] MEDS: HumuLIN R SUBCUT PRN (06:23)
[2020-12-11 06:46] LABS: BASOPHILS % (AUTO) 0.1 % (0.2-1.0); HEMATOCRIT 31.9 % (36.0-47.0); HEMOGLOBIN 10.7 g/dL (12.0-16.0); LYMPHOCYTES # (AUTO) 0.5 X10^3/uL (1.3-2.9); LYMPHOCYTES % (AUTO) 5.4 % (21.0-51.0); MEAN CORPUSCULAR HEMOGLOBIN 31.1 pg (27.0-34.0); MEAN CORPUSCULAR HGB CONC 33.4 g/dL (33.0-35.0); MEAN CORPUSCULAR VOLUME 93.1 fL (80.0-100.0); MEAN PLATELET VOLUME 11.2 fL (7.4-11.0); MONOCYTES # (AUTO) 0.8 x10^3/uL (0.3-0.8); MONOCYTES % (AUTO) 9.4 % (0.0-13.0); NEUTROPHILS # (AUTO) 7.5 x10^3/uL (2.2-4.8); NEUTROPHILS % (AUTO) 85.1 % (42.0-75.0); PLATELET COUNT 248 X10^3/uL (150.0-450.0); RED BLOOD COUNT 3.43 X10^6/uL (3.5-5.4); WHITE BLOOD COUNT 8.8 X10^3/uL (3.6-10.0)
[2020-12-11 08:04] LABS: ALANINE AMINOTRANSFERASE 28 Units/L (12-78); ALBUMIN 2.6 g/dL (3.4-5.0); ALKALINE PHOSPHATASE 38 Units/L (46-116); ASPARTATE AMINO TRANSFERASE 35 Units/L (15-37); BLOOD UREA NITROGEN 25 mg/dL (7-18); CALCIUM 8.1 mg/dL (8.5-10.1); CHLORIDE 114 mmol/L (98-107); COR NA(FOR HYPERGLY) 152 mmol/L (136-145); CREATININE 0.86 mg/dL (0.55-1.02); TOTAL PROTEIN 5.7 g/dL (6.4-8.2); eGFR NON BLACK RACES > 60 (>60)
[2020-12-11 08:05] LABS: COR CA(FOR HYPOALB) 9.2 mg/dL (8.5-10.1)
[2020-12-11] MEDS: CYTOTEC PO SCH (08:11)
--- NOTE | 2020-12-11 08:16 | RAD ---
HISTORYPNEUMONIA F/USTUDYCHEST x-ray, 1 VIEWCOMPARISONX-ray 12/10/2020FINDINGSPICC line terminates in the region of the distal SVC. Heart is normal in size. Possible COPD changes. Vague lung infiltrates are similar to prior study. No pneumothorax or pleural effusion is seen.IMPRESSIONBilateral lung infiltrates are unchanged.Electronically signed by: Joon Nobles (Dec 11, 2020 08:14:25)
[2020-12-11 08:40] LABS: CARBON DIOXIDE 11.3 mmol/L (21-32); SODIUM 150 mmol/L (136-145)
[2020-12-11] MEDS: LEVAQUIN PREMIX IV 500 MG 500 MG/100 ML BAG IV SCH (09:00)
[2020-12-11] MEDS: VITAMIN D3 125 mcg (5,000 UNITS) PO SCH (09:00)
[2020-12-11] MEDS: PULMICORT NEB TX 0.5 MG NEB SCH ×2 (09:10→21:46)
[2020-12-11] MEDS: BROVANA IN SCH ×2 (09:10→21:46)
[2020-12-11] MEDS: GLUCOPHAGE XR 24-HR PO SCH ×2 (09:16→21:59)
[2020-12-11] MEDS: INVOKANA PO SCH (09:16)
[2020-12-11] MEDS: PEPCID TAB 40 MG PO SCH ×2 (09:17→21:58)
[2020-12-11] MEDS: ACTOS PO SCH (09:17)
[2020-12-11] MEDS: FLUVOXAMINE MALEATE PO SCH (09:17)
[2020-12-11] MEDS: ZINC SULFATE PO SCH (09:17)
[2020-12-11] MEDS: ZyrTEC TAB 10 MG PO SCH (09:17)
[2020-12-11] MEDS: PROTONIX INJ 40 MG VIAL IVP SCH (09:18)
[2020-12-11] MEDS: VITAMIN A PO SCH (10:00)
[2020-12-11] MEDS ORDERED: SODIUM BICARBONATE TAB 650MG PO ONE (10:00)
--- NOTE | 2020-12-11 10:01 | W.DIS.FURT ---
Summary of Discharge Discharge Summary of Date Date of Exam: 12/11/20 Admission Diagnosis Patient Problems (Updated 12/03/20 @ 16:16 by Eric Bush) Pneumonia due to COVID-19 virus (Acute) U07.1, J12.82 Hypoxia (Acute) R09.02 Vital Signs: Vital Signs (72 hours) 12/08/20 12:00 12/08/20 16:00 12/08/20 20:00 Temperature 98.1 F 97.9 F 98.1 F Pulse Rate Pulse Rate [Left] 71 63 67 Respiratory Rate 20 20 18 Blood Pressure [Left Arm] 110/62 98/53 98/54 O2 Sat by Pulse Oximetry 99 91 L 92 L 12/08/20 21:10 12/09/20 00:00 12/09/20 04:00 Temperature 98.2 F 98.3 F Pulse Rate 71 Pulse Rate [Left] 86 73 Respiratory Rate 18 18 18 Blood Pressure [Left Arm] 110/70 93/59 O2 Sat by Pulse Oximetry 96 94 L 90 L 12/09/20 08:00 12/09/20 09:15 12/09/20 12:00 Temperature 97.8 F 97.7 F Pulse Rate 54 L Pulse Rate [Left] 66 62 Respiratory Rate 20 20 Blood Pressure [Left Arm] 104/56 97/56 O2 Sat by Pulse Oximetry 90 L 96 90 L 12/09/20 16:00 12/09/20 20:00 12/09/20 20:47 Temperature 98.2 F 98.1 F Pulse Rate 80 Pulse Rate [Left] 70 75 Respiratory Rate 18 18 18 Blood Pressure [Left Arm] 97/49 109/57 O2 Sat by Pulse Oximetry 94 L 91 L 95 12/10/20 00:00 12/10/20 04:00 12/10/20 08:00 Temperature 98.4 F 98.1 F 97.9 F Pulse Rate Pulse Rate [Left] 75 75 74 Respiratory Rate 20 18 20 Blood Pressure [Left Arm] 102/64 109/57 109/56 O2 Sat by Pulse Oximetry 93 L 91 L 93 L 12/10/20 12:00 12/10/20 16:00 12/10/20 20:00 Temperature 98.1 F 98.1 F 98.2 F Pulse Rate Pulse Rate [Left] 80 80 75 Respiratory Rate 20 20 20 Blood Pressure [Left Arm] 135/56 135/56 106/58 O2 Sat by Pulse Oximetry 88 L 88 L 94 L 12/10/20 21:00 12/11/20 00:00 12/11/20 04:00 Temperature 98.3 F 98.1 F Pulse Rate 81 Pulse Rate [Left] 77 75 Respiratory Rate 18 22 Blood Pressure [Left Arm] 112/55 O2 Sat by Pulse Oximetry 95 93 L 92 L 12/11/20 09:11 Temperature Pulse Rate Pulse Rate [Left] Respiratory Rate Blood Pressure [Left Arm] O2 Sat by Pulse Oximetry 92 L Labs: Laboratory Last Values WBC 8.8 X10^3/uL (3.6-10.0) 12/11/20 06:00 RBC 3.43 X10^6/uL (3.5-5.4) L 12/11/20 06:00 Hgb 10.7 g/dL (12.0-16.0) L 12/11/20 06:00 Hct 31.9 % (36.0-47.0) L 12/11/20 06:00 MCV 93.1 fL (80.0-100.0) 12/11/20 06:00 MCH 31.1 pg (27.0-34.0) 12/11/20 06:00 MCHC 33.4 g/dL (33.0-35.0) 12/11/20 06:00 RDW 14.0 % (11.6-16.5) 12/11/20 06:00 Plt Count 248 X10^3/uL (150.0-450.0) 12/11/20 06:00 MPV 11.2 fL (7.4-11.0) H 12/11/20 06:00 Neut % (Auto) 85.1 % (42.0-75.0) H 12/11/20 06:00 Lymph % (Auto) 5.4 % (21.0-51.0) L 12/11/20 06:00 [place] % (Auto) 9.4 % (0.0-13.0) 12/11/20 06:00 Eos % (Auto) 0.0 % (0.9-2.9) L 12/11/20 06:00 Baso % (Auto) 0.1 % (0.2-1.0) L 12/11/20 06:00 Neut # (Auto) 7.5 x10^3/uL (2.2-4.8) H 12/11/20 06:00 Lymph # (Auto) 0.5 X10^3/uL (1.3-2.9) L 12/11/20 06:00 [place] # (Auto) 0.8 x10^3/uL (0.3-0.8) 12/11/20 06:00 Eos # (Auto) 0.0 x10^3/uL (0.0-0.2) 12/11/20 06:00 Baso # (Auto) 0.0 X10^3/uL (0.0-0.1) 12/11/20 06:00 Absolute Nucleated RBC 0.1 /100WBC 12/11/20 06:00 D-Dimer 0.39 ug/ml (0.0-0.57) 12/08/20 05:39 Sample Site Lr 12/08/20 04:35 ABG pH 7.400 (7.35-7.45) 12/08/20 04:35 ABG pCO2 35.0 mmHg (35.0-45.0) 12/08/20 04:35 ABG pO2 72.0 mmHg (80.0-100.0) L 12/08/20 04:35 ABG HCO3 21.7 mmol/L (22-26) L 12/08/20 04:35 ABG O2 Saturation 94.0 % (90-100) 12/08/20 04:35 ABG Base Excess -2.6 mmol/L (-2.0-2.0) L 12/08/20 04:35 Agusto Test Pos 12/08/20 04:35 A-a Gradient 512.0 mmHg 12/08/20 04:35 FiO2 88.0 12/08/20 04:35 Blood Gas Comments Rigo well ae 12/08/20 04:35 Sodium 150 mmol/L (136-145) H* 12/11/20 06:00 Corrected Sodium 152 mmol/L (136-145) H 12/11/20 06:00 Potassium 3.4 mmol/L (3.5-5.1) L 12/11/20 06:00 Chloride 114 mmol/L (98-107) H 12/11/20 06:00 Carbon Dioxide 11.3 mmol/L (21-32) L* 12/11/20 06:00 BUN 25 mg/dL (7-18) H 12/11/20 06:00 Creatinine 0.86 mg/dL (0.55-1.02) 12/11/20 06:00 Est GFR (MDRD) Af Amer > 60 (>60) 12/11/20 06:00 Est GFR (MDRD) Non-Af > 60 (>60) 12/11/20 06:00 Glucose 173 mg/dL (65-99) H 12/11/20 06:00 POC Glucose (mg/dL) 162 mg/dL (65-99) H 12/11/20 05:01 Lactic Acid 2.2 mmol/L (0.4-2.0) H 12/03/20 10:55 Calcium 8.1 mg/dL (8.5-10.1) L 12/11/20 06:00 Corrected Calcium 9.2 mg/dL (8.5-10.1) 12/11/20 06:00 Magnesium 2.9 mg/dL (1.7-2.9) 12/10/20 05:35 Ferritin 1234 ng/mL (8-252) H 12/08/20 05:39 Total Bilirubin 1.10 mg/dL (0.2-1.0) H 12/11/20 06:00 AST 35 Units/L (15-37) 12/11/20 06:00 ALT 28 Units/L (12-78) 12/11/20 06:00 Alkaline Phosphatase 38 Units/L (46-116) L 12/11/20 06:00 Creatine Kinase 955 Units/L (26-192) H 12/03/20 10:55 CK-MB (CK-2) < 1.0 ng/mL (0-4.0) 12/03/20 10:55 CK/CKMB % Calc 0.1 % (<4) 12/03/20 10:55 Troponin I < 0.02 ng/mL (0-1.5) 12/03/20 10:55 C-Reactive Protein 6.50 mg/L (0-3.0) H 12/08/20 05:39 B-Natriuretic Peptide 97.1 pg/mL (0-79) H 12/08/20 05:39 Total Protein 5.7 g/dL (6.4-8.2) L 12/11/20 06:00 Albumin 2.6 g/dL (3.4-5.0) L 12/11/20 06:00 Globulin 3.1 g/dL (2.5-4.5) 12/11/20 06:00 Albumin/Globulin Ratio 0.8 Ratio (1.1-2.1) L 12/11/20 06:00 SARS-CoV-2 (PCR) Positive (NEGATIVE) A 12/03/20 12:18 Influenza Type A (PCR) Negative (NEGATIVE) 12/03/20 12:18 Influenza Type B (PCR) Negative (NEGATIVE) 12/03/20 12:18 RSV (PCR) Negative (NEGATIVE) 12/03/20 12:18 Reason For Visit: COVID 19, PNEUMONIA, HYPOXIA Discharge Diagnosis All Active Problems (Updated 12/03/20 @ 16:16 by Eric Bush) Constipation (Acute) Knee sprain (Acute) Lumbosacral strain (Acute) Diabetic neuropathy, painful (Acute) Corneal irritation of left eye (Acute) Pneumonia due to COVID-19 virus (Acute) Hypoxia (Acute) Plan of Treatment: Continue with present treatment and follow up plan. Pt is to keep follow up appointment as instructed and take medications as ordered. Discharge Medications Discharge Medications: No Known Drug Allergies Allergy (Verified 05/13/20 08:54) CONTINUE taking the following medications amlodipine 2.5 mg PO DAILY 12/04/20 [History] atorvastatin 40 mg PO HS 12/04/20 [History] budesonide-formoterol [Symbicort] 2 puff INHALATION BID 12/04/20 [History] furosemide 20 mg PO DAILY 12/04/20 [History] gabapentin 300 mg PO BID PRN 12/04/20 [History] hydrocodone-acetaminophen 1 tab PO BID PRN 12/04/20 [History] loratadine 10 mg PO HS 12/04/20 [History] lorazepam 0.5 mg PO DAILY PRN 12/04/20 [History] metoprolol succinate 50 mg PO DAILY 12/04/20 [History] sertraline 100 mg PO DAILY 12/04/20 [History] Discharge Disposition Assessment: Stable no acute distress noted at time of discharge. Discharge Plan Discharge Plan Condition: Stable Health Concerns: Post Hospitalization: new medications and changes needed to prevent readmission or further decline. Pt educated and given instructions on all concerns. Care Plan Goals: Problem: Respiratory Complications Goal: Improved Uncomplicated Respiratory Status Instructions: Follow provided instructions. Follow up with primary physician as directed. Contact primary care physician or report to the closest Emergency Room if condition worsens. Plan of Treatment: Continue with present treatment and follow up plan. Pt is to keep follow up appointment as instructed and take medications as ordered. Assessment: Stable no acute distress noted at time of discharge. Prescriptions: Continued glimepiride 4 mg Tablet 4 mg PO QAM RF: 0 pantoprazole [Protonix] [address] For Susp In Packet 40 mg PO DAILY RF: 0 lorazepam 0.5 mg Tablet 0.5 mg PO DAILY PRNRF: 0 hydrocodone-acetaminophen 10-325 mg Tablet 1 tab PO BID PRN (Reason: Pain) RF: 0 gabapentin 300 mg Capsule 300 mg PO BID PRNRF: 0 loratadine 10 mg Tablet 10 mg PO HS RF: 0 atorvastatin 40 mg Tablet 40 mg PO HS RF: 0 sertraline 100 mg Tablet 100 mg PO DAILY RF: 0 budesonide-formoterol [Symbicort] 160-4.5 mcg/actuation Hfa Aerosol Inhaler 2 puff INHALATION BID RF: 0 metoprolol succinate 50 mg Tablet Extended Release 24 Hr 50 mg PO DAILY RF: 0 amlodipine 2.5 mg Tablet 2.5 mg PO DAILY RF: 0 furosemide 20 mg Tablet 20 mg PO DAILY RF: 0 Orders to Discharge Patient Discharge Orders: Discharge (Routine); Ordered 12/11/20 Ordered By: Clark Tripp Follow ups/Referrals Follow ups/Referrals: Clark Tripp [STAFF PHYSICIAN] - 12/17/20 2:20 pm Instructions Instructions: Shortness of Breath, Adult, [id number], Incentive Spirometer, Home Oxygen Use, Adult, Hand Washing, Vqut-fl-Wmoi, Steps to Quit Smoking, Rhnw-lh-Fohb, Chronic Obstructive Pulmonary Disease, Jwzu-kt-Hgml, Type 2 Diabetes Mellitus, Self Care, Adult, Iwfp-gs-Sypz, Droplet Precautions, Rypn-sz-Kyud, Contact Precautions, Ssvu-xd-Luiw, Heart Failure, Lpvx-zw-Diti, You've Been Prescribed an Antibiotic in the Hospital for an Infection - [facility] (07/2017) Stand Alone Forms: Excuse From Work or School, Precautions for COVID19, [facility], Patient Portal, Social Distancing
[2020-12-11] MEDS: NS 1/2 1000 ML IV 1,000 ML IV SCH (11:08)
[2020-12-11] MEDS: SNACK - Diabetic Appropriate PO SCH (21:57)
[2020-12-11] MEDS: LOVENOX INJ 30 MG SYR SC SCH (21:58)
[2020-12-11] MEDS: LIPITOR TAB 80 MG PO SCH (21:58)
[2020-12-11] MEDS: MELATONIN PO SCH (21:58)
--- NOTE | 2020-12-11 22:22 | PCM.PROG ---
Progress Note Progress Note for Day of Date of Exam: 12/11/20 Subjective Subjective: Pt is a 65 year old female admitted for COVID-19 pneumonia with hypoxia. Pt is resting comfortably in bed this morning. She reports feeling better and appears happy to go home today. She is currently utilizing 3L nasal cannula supplemental oxygen. Labs/imaging: Wbc 8.8, Hgb 10.7, Plt 248, Na 150, K 3.4, Creatinine 0.86, Glucose 173. CXR this morning was obtained that revealed: CXR: Lung infiltrates unchanged. Sputum culture positive for Pseudomonas, that was also treated with Levaquin. Pt was stabilized on 3L nasal cannula oxygen and set up for home oxygen. Apparently patient was taken home by a family member and left to take care of herself. EMS was called and patient was found on the ground without her oxygen and confused. Pt's discharged was canceled and she was placed back in her hospital room for further evaluation. CT brain was obtained that revealed: mild chronic small vessel ischemic changes are suspected without evidence of acute intracranial abnormality. Mild acute and chronic sinusitis. Pt has difficult IV access, will consult for possible picc line placement. Othe rwise convert medications to po. Continue treatment course that includes: Scheduled Bronchodilators, Lovenox 30mg BID, immune supporting supplements, supplemental O2, I/S, Respiratory therapy consult, Pneumonia protocol. Pt will need aggressive Physical therapy and will need to determine discharge planning with case management. Wean/titrate oxygen as tolerated. Continue to monitor closely and follow up labs/imaging in the morning. Time spent on clinical assessment, reviewing labs and imaging, decision making, and documentation greater than 45 minutes. Past Medical Family Social History Past Med/Fam/Surg Hx: No changes since H&P Allergies: Allergies No Known Drug Allergies Allergy (Verified 05/13/20 08:54) Review of Systems ROS: No change since H&P Vital Signs and I&O's Vital Signs: Temperature 97.9 F Pulse Rate [Left] 75 Pulse Rate 81 Respiratory Rate 20 Blood Pressure [Left Arm] 105/60 Blood Pressure [Right Arm] 115/60 Blood Pressure 176/77 O2 Sat by Pulse Oximetry 93 Intake and Output: Intake & Output 12/08/20 12/09/20 12/10/20 12/11/20 23:59 23:59 23:59 23:59 Intake Total 2773 / 2773 1190 / 1190 730 / 730 100 / 100 Balance 2773 / 2773 1190 / 1190 730 / 730 100 / 100 Physical Exam Oriented: Normal Eyes: Normal Ear: Normal Nose: Normal Throat: Normal Respiratory: Diminished Cardiovascular: Normal : Normal Auscultation: Bowel Sounds: Normal Tenderness: Normal Skin: Normal Musculoskeletal: Normal Psychiatric: Normal Mood Description: Calm Speech Pattern: Clear and Appropriate Laboratory and Diagnostics Result Diagrams: 12/11/20 06:00 12/11/20 06:00 Labs: 12/03/20 10:55 Blood Blood Culture - Final 12/03/20 10:50 Blood Blood Culture - Final 12/04/20 21:15 Sputum - Expectorated Sputum Sputum Culture - Final Pseudomonas Aeruginosa 12/04/20 21:15 Sputum - Expectorated Sputum - Final Laboratory WBC 8.8 X10^3/uL (3.6-10.0) 12/11/20 06:00 RBC 3.43 X10^6/uL (3.5-5.4) L 12/11/20 06:00 Hgb 10.7 g/dL (12.0-16.0) L 12/11/20 06:00 Hct 31.9 % (36.0-47.0) L 12/11/20 06:00 MCV 93.1 fL (80.0-100.0) 12/11/20 06:00 MCH 31.1 pg (27.0-34.0) 12/11/20 06:00 MCHC 33.4 g/dL (33.0-35.0) 12/11/20 06:00 RDW 14.0 % (11.6-16.5) 12/11/20 06:00 Plt Count 248 X10^3/uL (150.0-450.0) 12/11/20 06:00 MPV 11.2 fL (7.4-11.0) H 12/11/20 06:00 Neut % (Auto) 85.1 % (42.0-75.0) H 12/11/20 06:00 Lymph % (Auto) 5.4 % (21.0-51.0) L 12/11/20 06:00 [place] % (Auto) 9.4 % (0.0-13.0) 12/11/20 06:00 Eos % (Auto) 0.0 % (0.9-2.9) L 12/11/20 06:00 Baso % (Auto) 0.1 % (0.2-1.0) L 12/11/20 06:00 Neut # (Auto) 7.5 x10^3/uL (2.2-4.8) H 12/11/20 06:00 Lymph # (Auto) 0.5 X10^3/uL (1.3-2.9) L 12/11/20 06:00 [place] # (Auto) 0.8 x10^3/uL (0.3-0.8) 12/11/20 06:00 Eos # (Auto) 0.0 x10^3/uL (0.0-0.2) 12/11/20 06:00 Baso # (Auto) 0.0 X10^3/uL (0.0-0.1) 12/11/20 06:00 Absolute Nucleated RBC 0.1 /100WBC 12/11/20 06:00 D-Dimer 0.39 ug/ml (0.0-0.57) 12/08/20 05:39 Sample Site Lr 12/08/20 04:35 ABG pH 7.400 (7.35-7.45) 12/08/20 04:35 ABG pCO2 35.0 mmHg (35.0-45.0) 12/08/20 04:35 ABG pO2 72.0 mmHg (80.0-100.0) L 12/08/20 04:35 ABG HCO3 21.7 mmol/L (22-26) L 12/08/20 04:35 ABG O2 Saturation 94.0 % (90-100) 12/08/20 04:35 ABG Base Excess -2.6 mmol/L (-2.0-2.0) L 12/08/20 04:35 Agusto Test Pos 12/08/20 04:35 A-a Gradient 512.0 mmHg 12/08/20 04:35 FiO2 88.0 12/08/20 04:35 Blood Gas Comments Rigo well ae 12/08/20 04:35 Sodium 150 mmol/L (136-145) H* 12/11/20 06:00 Corrected Sodium 152 mmol/L (136-145) H 12/11/20 06:00 Potassium 3.4 mmol/L (3.5-5.1) L 12/11/20 06:00 Chloride 114 mmol/L (98-107) H 12/11/20 06:00 Carbon Dioxide 11.3 mmol/L (21-32) L* 12/11/20 06:00 BUN 25 mg/dL (7-18) H 12/11/20 06:00 Creatinine 0.86 mg/dL (0.55-1.02) 12/11/20 06:00 Est GFR (MDRD) Af Amer > 60 (>60) 12/11/20 06:00 Est GFR (MDRD) Non-Af > 60 (>60) 12/11/20 06:00 Glucose 173 mg/dL (65-99) H 12/11/20 06:00 POC Glucose (mg/dL) 162 mg/dL (65-99) H 12/11/20 05:01 Lactic Acid 2.2 mmol/L (0.4-2.0) H 12/03/20 10:55 Calcium 8.1 mg/dL (8.5-10.1) L 12/11/20 06:00 Corrected Calcium 9.2 mg/dL (8.5-10.1) 12/11/20 06:00 Magnesium 2.9 mg/dL (1.7-2.9) 12/10/20 05:35 Ferritin 1234 ng/mL (8-252) H 12/08/20 05:39 Total Bilirubin 1.10 mg/dL (0.2-1.0) H 12/11/20 06:00 AST 35 Units/L (15-37) 12/11/20 06:00 ALT 28 Units/L (12-78) 12/11/20 06:00 Alkaline Phosphatase 38 Units/L (46-116) L 12/11/20 06:00 Creatine Kinase 955 Units/L (26-192) H 12/03/20 10:55 CK-MB (CK-2) < 1.0 ng/mL (0-4.0) 12/03/20 10:55 CK/CKMB % Calc 0.1 % (<4) 12/03/20 10:55 Troponin I < 0.02 ng/mL (0-1.5) 12/03/20 10:55 C-Reactive Protein 6.50 mg/L (0-3.0) H 12/08/20 05:39 B-Natriuretic Peptide 97.1 pg/mL (0-79) H 12/08/20 05:39 Total Protein 5.7 g/dL (6.4-8.2) L 12/11/20 06:00 Albumin 2.6 g/dL (3.4-5.0) L 12/11/20 06:00 Globulin 3.1 g/dL (2.5-4.5) 12/11/20 06:00 Albumin/Globulin Ratio 0.8 Ratio (1.1-2.1) L 12/11/20 06:00 SARS-CoV-2 (PCR) Positive (NEGATIVE) A 12/03/20 12:18 Influenza Type A (PCR) Negative (NEGATIVE) 12/03/20 12:18 Influenza Type B (PCR) Negative (NEGATIVE) 12/03/20 12:18 RSV (PCR) Negative (NEGATIVE) 12/03/20 12:18 Plan (1) Pneumonia due to COVID-19 virus: Status: Acute Plan: Pneumonia protocol
[2020-12-12] MEDS: TESSALON PERLES PO SCH ×3 (05:43→21:06)
--- NOTE | 2020-12-12 06:53 | RAD ---
HISTORYCOVID-19 pneumoniaSTUDYPortable AP [id number] normal heart size and contour. Persistent infiltrates agai n noted with slight interval progression especially in the right upper lobe. No pneumothorax or pleur al fluid identified.IMPRESSIONSlight interval progression of bilateral pneumonia.Electronically selvin d by: ARNALDO STROUD (Dec 12, 2020 06:51:07)
[2020-12-12] MEDS: GLUCOPHAGE XR 24-HR PO SCH ×2 (09:02→21:07)
[2020-12-12] MEDS: INVOKANA PO SCH (09:03)
[2020-12-12] MEDS: ACTOS PO SCH (09:03)
[2020-12-12] MEDS: PEPCID TAB 40 MG PO SCH ×2 (09:03→21:06)
[2020-12-12] MEDS: LOVENOX INJ 30 MG SYR SC SCH ×2 (09:04→21:06)
[2020-12-12] MEDS: PULMICORT NEB TX 0.5 MG NEB SCH ×2 (09:58→21:00)
[2020-12-12] MEDS: BROVANA IN SCH ×2 (09:58→21:00)
--- NOTE | 2020-12-12 18:04 | PCM.PROG ---
Progress Note Progress Note for Day of Date of Exam: 12/12/20 Subjective Subjective: Pt is a 65 year old female admitted for COVID-19 pneumonia with hypoxia. This morning patient appears to have some abnormal behavior. She does take more time to answer questions and sometimes will follow commands and other times she does not. When asked what my name was, she was able to answer correctly. Unclear at this time etiology. Pt also has poor IV access and during holiday weekend, hospital has no one to obtain access via central line placement. Will have wait till staff return and then attempt access, for now I have no labs to review. Will order UA and MRI brain for further evaluation. CT brain no acute abnormalities that would explain behavior. Pt has also been on high dose steroids that have been discontinued. CXR: slight interval progression of pneumonia. Start on Levaquin. She is currently utilizing 3L nasal cannula supplemental oxygen. Continue treatment course that includes: Scheduled Bronchodilators, Lovenox 30mg BID, immune supporting supplements, supplemental O 2, I/S, Respiratory therapy consult, Pneumonia protocol. Pt will need aggressive Physical therapy and discharge planning with case management. Wean/titrate oxygen as tolerated. Continue to monitor closely and follow up labs/imaging in the morning. Time spent on clinical assessment, reviewing labs and imaging, decision making, and documentation greater than 45 minutes. Past Medical Family Social History Past Med/Fam/Surg Hx: No changes since H&P Allergies: Allergies No Known Drug Allergies Allergy (Verified 05/13/20 08:54) Review of Systems ROS: No change since H&P Vital Signs and I&O's Vital Signs: Temperature 97.8 F Pulse Rate [Left] 71 Pulse Rate 81 Respiratory Rate 20 Blood Pressure [Left Arm] 125/58 Blood Pressure [Right Arm] 115/60 Blood Pressure 176/77 O2 Sat by Pulse Oximetry 97 Intake and Output: Intake & Output 12/09/20 12/10/20 12/11/20 12/12/20 23:59 23:59 23:59 23:59 Intake Total 1190 / 1190 730 / 730 440 / 440 640 / 640 Balance 1190 / 1190 730 / 730 440 / 440 640 / 640 Physical Exam Oriented: Normal Eyes: Normal Ear: Normal Nose: Normal Throat: Normal Respiratory: Diminished Cardiovascular: Normal : Normal Auscultation: Bowel Sounds: Normal Tenderness: Normal Skin: Normal Musculoskeletal: Normal Psychiatric: Normal Mood Description: Calm Speech Pattern: Clear, Appropriate and Delayed Laboratory and Diagnostics Result Diagrams: 12/11/20 06:00 12/11/20 06:00 Labs: 12/03/20 10:55 Blood Blood Culture - Final 12/03/20 10:50 Blood Blood Culture - Final 12/04/20 21:15 Sputum - Expectorated Sputum Sputum Culture - Final Pseudomonas Aeruginosa 12/04/20 21:15 Sputum - Expectorated Sputum - Final Laboratory WBC 8.8 X10^3/uL (3.6-10.0) 12/11/20 06:00 RBC 3.43 X10^6/uL (3.5-5.4) L 12/11/20 06:00 Hgb 10.7 g/dL (12.0-16.0) L 12/11/20 06:00 Hct 31.9 % (36.0-47.0) L 12/11/20 06:00 MCV 93.1 fL (80.0-100.0) 12/11/20 06:00 MCH 31.1 pg (27.0-34.0) 12/11/20 06:00 MCHC 33.4 g/dL (33.0-35.0) 12/11/20 06:00 RDW 14.0 % (11.6-16.5) 12/11/20 06:00 Plt Count 248 X10^3/uL (150.0-450.0) 12/11/20 06:00 MPV 11.2 fL (7.4-11.0) H 12/11/20 06:00 Neut % (Auto) 85.1 % (42.0-75.0) H 12/11/20 06:00 Lymph % (Auto) 5.4 % (21.0-51.0) L 12/11/20 06:00 [place] % (Auto) 9.4 % (0.0-13.0) 12/11/20 06:00 Eos % (Auto) 0.0 % (0.9-2.9) L 12/11/20 06:00 Baso % (Auto) 0.1 % (0.2-1.0) L 12/11/20 06:00 Neut # (Auto) 7.5 x10^3/uL (2.2-4.8) H 12/11/20 06:00 Lymph # (Auto) 0.5 X10^3/uL (1.3-2.9) L 12/11/20 06:00 [place] # (Auto) 0.8 x10^3/uL (0.3-0.8) 12/11/20 06:00 Eos # (Auto) 0.0 x10^3/uL (0.0-0.2) 12/11/20 06:00 Baso # (Auto) 0.0 X10^3/uL (0.0-0.1) 12/11/20 06:00 Absolute Nucleated RBC 0.1 /100WBC 12/11/20 06:00 D-Dimer 0.39 ug/ml (0.0-0.57) 12/08/20 05:39 Sample Site Lr 12/08/20 04:35 ABG pH 7.400 (7.35-7.45) 12/08/20 04:35 ABG pCO2 35.0 mmHg (35.0-45.0) 12/08/20 04:35 ABG pO2 72.0 mmHg (80.0-100.0) L 12/08/20 04:35 ABG HCO3 21.7 mmol/L (22-26) L 12/08/20 04:35 ABG O2 Saturation 94.0 % (90-100) 12/08/20 04:35 ABG Base Excess -2.6 mmol/L (-2.0-2.0) L 12/08/20 04:35 Agusto Test Pos 12/08/20 04:35 A-a Gradient 512.0 mmHg 12/08/20 04:35 FiO2 88.0 12/08/20 04:35 Blood Gas Comments Rigo well ae 12/08/20 04:35 Sodium 150 mmol/L (136-145) H* 12/11/20 06:00 Corrected Sodium 152 mmol/L (136-145) H 12/11/20 06:00 Potassium 3.4 mmol/L (3.5-5.1) L 12/11/20 06:00 Chloride 114 mmol/L (98-107) H 12/11/20 06:00 Carbon Dioxide 11.3 mmol/L (21-32) L* 12/11/20 06:00 BUN 25 mg/dL (7-18) H 12/11/20 06:00 Creatinine 0.86 mg/dL (0.55-1.02) 12/11/20 06:00 Est GFR (MDRD) Af Amer > 60 (>60) 12/11/20 06:00 Est GFR (MDRD) Non-Af > 60 (>60) 12/11/20 06:00 Glucose 173 mg/dL (65-99) H 12/11/20 06:00 POC Glucose (mg/dL) 151 mg/dL (65-99) H 12/12/20 16:13 Lactic Acid 2.2 mmol/L (0.4-2.0) H 12/03/20 10:55 Calcium 8.1 mg/dL (8.5-10.1) L 12/11/20 06:00 Corrected Calcium 9.2 mg/dL (8.5-10.1) 12/11/20 06:00 Magnesium 2.9 mg/dL (1.7-2.9) 12/10/20 05:35 Ferritin 1234 ng/mL (8-252) H 12/08/20 05:39 Total Bilirubin 1.10 mg/dL (0.2-1.0) H 12/11/20 06:00 AST 35 Units/L (15-37) 12/11/20 06:00 ALT 28 Units/L (12-78) 12/11/20 06:00 Alkaline Phosphatase 38 Units/L (46-116) L 12/11/20 06:00 Creatine Kinase 955 Units/L (26-192) H 12/03/20 10:55 CK-MB (CK-2) < 1.0 ng/mL (0-4.0) 12/03/20 10:55 CK/CKMB % Calc 0.1 % (<4) 12/03/20 10:55 Troponin I < 0.02 ng/mL (0-1.5) 12/03/20 10:55 C-Reactive Protein 6.50 mg/L (0-3.0) H 12/08/20 05:39 B-Natriuretic Peptide 97.1 pg/mL (0-79) H 12/08/20 05:39 Total Protein 5.7 g/dL (6.4-8.2) L 12/11/20 06:00 Albumin 2.6 g/dL (3.4-5.0) L 12/11/20 06:00 Globulin 3.1 g/dL (2.5-4.5) 12/11/20 06:00 Albumin/Globulin Ratio 0.8 Ratio (1.1-2.1) L 12/11/20 06:00 SARS-CoV-2 (PCR) Positive (NEGATIVE) A 12/03/20 12:18 Influenza Type A (PCR) Negative (NEGATIVE) 12/03/20 12:18 Influenza Type B (PCR) Negative (NEGATIVE) 12/03/20 12:18 RSV (PCR) Negative (NEGATIVE) 12/03/20 12:18 Plan (1) Pneumonia due to COVID-19 virus: Status: Acute Plan: Pneumonia protocol
[2020-12-12 19:06] LABS: BILIRUBIN,URINE NEGATIVE (NEGATIVE); BLOOD/HEMOGLOBIN,URINE 1+ (NEGATIVE); GLUCOSE, URINE 4+ (NEGATIVE); KETONES,URINE 4+ (NEGATIVE); LEUKOCYTE ESTERASE ,URINE NEGATIVE (NEGATIVE); NITRITES,URINE NEGATIVE (NEGATIVE); PROTEIN,URINE 1+ (NEGATIVE); UROBILINOGEN,URINE NORMAL (NORMAL)
[2020-12-12 19:10] LABS: APPEARANCE,URINE CLEAR (CLEAR); COLOR,URINE YELLOW (YELLOW)
[2020-12-12 19:18] LABS: BACTERIA,URINE TRACE /HPF (NEGATIVE); SQUAMOUS EPITHELIAL CELL,UR FEW /HPF (NEGATIVE); YEAST,URINE NUMEROUS /HPF (NEGATIVE)
[2020-12-12] MEDS: MELATONIN PO SCH (21:06)
[2020-12-12] MEDS: LIPITOR TAB 80 MG PO SCH (21:06)
[2020-12-12] MEDS: SNACK - Diabetic Appropriate PO SCH (21:06)
[2020-12-13] MEDS: TESSALON PERLES PO SCH ×3 (05:50→22:07)
--- NOTE | 2020-12-13 07:25 | RAD ---
HISTORYCOVID-19 pneumoniaSTUDYAP [id number]/2021FINDINGSStable-normal heart size and contour. Persistent pulmonary infiltrat es have improved slightly. No new areas of consolidation or pleural fluid accumulation identified.IMP RESSIONPersistent infiltrates/pneumonia with slight interval improvement.Electronically signed by: EDER STROUD (Dec 13, 2020 07:23:45)
[2020-12-13] MEDS ORDERED: MAALOX or MYLANTA PO PRN (07:49)
[2020-12-13] MEDS: PULMICORT NEB TX 0.5 MG NEB SCH ×2 (09:10→21:40)
[2020-12-13] MEDS: BROVANA IN SCH ×2 (09:10→21:40)
[2020-12-13] MEDS: LEVAQUIN TAB 750 MG PO SCH (09:50)
[2020-12-13] MEDS: INVOKANA PO SCH (09:50)
[2020-12-13] MEDS: GLUCOPHAGE XR 24-HR PO SCH ×2 (09:51→22:05)
[2020-12-13] MEDS: LOVENOX INJ 30 MG SYR SC SCH ×2 (09:52→22:06)
[2020-12-13] MEDS: PEPCID TAB 40 MG PO SCH ×2 (09:52→22:07)
[2020-12-13] MEDS: ACTOS PO SCH (09:52)
[2020-12-13 10:43] LABS: BASOPHILS % (AUTO) 0.2 % (0.2-1.0); EOSINOPHILS % (AUTO) 0.1 % (0.9-2.9); HEMOGLOBIN 11.1 g/dL (12.0-16.0); LYMPHOCYTES # (AUTO) 0.7 X10^3/uL (1.3-2.9); LYMPHOCYTES % (AUTO) 9.2 % (21.0-51.0); MEAN CORPUSCULAR HEMOGLOBIN 31.1 pg (27.0-34.0); MEAN CORPUSCULAR HGB CONC 33.5 g/dL (33.0-35.0); MEAN CORPUSCULAR VOLUME 92.7 fL (80.0-100.0); MONOCYTES # (AUTO) 0.7 x10^3/uL (0.3-0.8); MONOCYTES % (AUTO) 9.4 % (0.0-13.0); NEUTROPHILS # (AUTO) 6.3 x10^3/uL (2.2-4.8); NEUTROPHILS % (AUTO) 81.1 % (42.0-75.0); PLATELET COUNT 183 X10^3/uL (150.0-450.0); RED BLOOD COUNT 3.56 X10^6/uL (3.5-5.4); RED CELL DISTRIBUTION WIDTH 13.7 % (11.6-16.5); WHITE BLOOD COUNT 7.7 X10^3/uL (3.6-10.0)
[2020-12-13 12:07] LABS: ALANINE AMINOTRANSFERASE 34 Units/L (12-78); ALBUMIN 2.6 g/dL (3.4-5.0); ALKALINE PHOSPHATASE 47 Units/L (46-116); ASPARTATE AMINO TRANSFERASE 33 Units/L (15-37); BLOOD UREA NITROGEN 13 mg/dL (7-18); CALCIUM 8.8 mg/dL (8.5-10.1); CARBON DIOXIDE 16.6 mmol/L (21-32); CHLORIDE 112 mmol/L (98-107); COR CA(FOR HYPOALB) 9.9 mg/dL (8.5-10.1); COR NA(FOR HYPERGLY) 152 mmol/L (136-145); CREATININE 0.95 mg/dL (0.55-1.02); eGFR NON BLACK RACES > 60 (>60)
[2020-12-13 12:16] LABS: SODIUM 150 mmol/L (136-145)
[2020-12-13] MEDS: KLOR-CON PO PRN (13:15)
--- NOTE | 2020-12-13 19:35 | RAD ---
HISTORYcentral line placementSTUDYCHEST, 1 VIEWCOMPARISONSeptember 2020 at 5:07 a.m.TECHNIQUEChest radiographic imaging, AP portable projection, 1 imageFINDINGSNo cardiomegaly.Bilateral airspace opacities without significant change.Left subclavian central line tip overlies the cavoatrial junction.No pleural effusion.No pneumothorax.No acute osseous abnormality.Surgical clips in the right axilla.IMPRESSION1. Bilateral airspace opacities without significant change.2. Left subclavian central line tip overlies the cavoatrial junction.Electronically signed by: Tawanda Saucedo (Dec 13, 2020 19:32:40)
[2020-12-13] MEDS: SNACK - Diabetic Appropriate PO SCH (22:05)
[2020-12-13] MEDS: LIPITOR TAB 80 MG PO SCH (22:05)
[2020-12-13] MEDS: MELATONIN PO SCH (22:06)
[2020-12-13] MEDS: K-DUR TAB 20 MEQ PO PRN (22:07)
--- NOTE | 2020-12-13 22:27 | DR.OPNOTE ---
OP NOTE Pre-Op Diagnosis: Change in mental status , lack of IV access Post-Op Diagnosis: same Procedure Date Date Of Procedure: 12/13/20 Procedure: The patient was placed in Trendelenburg position.Consent had been signed. The left chest and left neck prepped and draped in sterile fashion. Skin underlying the left clavicle infiltrated with 5 mL of 1% Xylocaine.16 gauge needle used to puncture the left subclavian vein with good aspiration of blood and guidewire placed. Needle removed. Incision made over the guidewire with a number 11 knife blade. Dilator placed over the guidewire to dilate the track for the planned trip lumen venous catheter placement. Dilator removed and triple lumen venous catheter threaded over the guidewire into the left subclavian vein. Guidewire removed. All ports aspirated of blood and flushed with heparinized saline. The triple lumen catheter secured to the skin with interrupted silk sutures. Post procedure chest x-ray should good placement of the tip of the catheter in the inferior vena cava and no evidence of pneumothorax Type of Anesthesia: Local (5 cc 1% Xylocaine) Findings: as above Specimen/Pathology: none Total Amount of Fluid Infused:: 0 EBL: minimal Complications:: none Needle/Sponge Count:: correct Disposition/Condition: Pt. tolerated procedure without difficulty. Post procedure CXR shows no pneumothorax with good placement of the central venous line
--- NOTE | 2020-12-14 00:04 | PCM.PROG ---
Progress Note Progress Note for Day of Date of Exam: 12/13/20 Subjective Subjective: Pt is a 65 year old female admitted for COVID-19 pneumonia with hypoxia. Pt does have some abnormal behavior, uncertain on actual cause and if actually of organic etiology or psychological. Pt also has poor IV access, however was able to get labs this morning via arterial stick. Labs/imaging: Wbc 7.7, Hgb 11.1, Plt 183, Na 150, K 3.2, Creatinine 0.95, Glucose 198. UA negative, and MRI brain will be ordered when technicians return due to weekend and holiday on Monday. CT brain no acute abnormalities that would explain behavior. Pt has also been on high dose steroids that have been discontinued. CXR: Persistent infiltrates/pneumonia with slight interval improvement. Pt is currently utilizing 3L nasal cannula supplemental oxygen. Continue treatment course that includes: Scheduled Bronchodilators, Lovenox 30mg BID, immune supporting supplements, supplemental O2, I/S, Respiratory therapy consult, Pneumonia protocol. Replete potassium per protocol. Pt will need aggressive Physical therapy and discharge planning with case management. Wean/titrate oxygen as tolerated. Surgery consulted for central line placement due to poor IV access. Continue to monitor closely and follow up labs/imaging in the morning. Time spent on clinical assessment, reviewing labs and imaging, decision making, and documentation greater than 45 minutes. Past Medical Family Social History Past Med/Fam/Surg Hx: No changes since H&P Allergies: Allergies No Known Drug Allergies Allergy (Verified 05/13/20 08:54) Review of Systems ROS: No change since H&P Vital Signs and I&O's Vital Signs: Temperature 98.6 F Pulse Rate [Left] 77 Pulse Rate 53 Respiratory Rate 21 Blood Pressure [Left Arm] 123/66 Blood Pressure [Right Arm] 115/60 Blood Pressure 176/77 O2 Sat by Pulse Oximetry 96 Intake and Output: Intake & Output 12/11/20 12/12/20 12/13/20 12/14/20 23:59 23:59 23:59 23:59 Intake Total 440 / 440 880 / 880 620 / 620 Balance 440 / 440 880 / 880 620 / 620 Physical Exam Oriented: Normal Eyes: Normal Ear: Normal Nose: Normal Throat: Normal Respiratory: Diminished and Rales Cardiovascular: Normal : Normal Auscultation: Bowel Sounds: Normal Tenderness: Normal Skin: Normal Musculoskeletal: Normal Psychiatric: Normal Mood Description: Calm Speech Pattern: Clear and Appropriate Laboratory and Diagnostics Result Diagrams: 12/13/20 10:35 12/13/20 19:30 Labs: 12/03/20 10:55 Blood Blood Culture - Final 12/03/20 10:50 Blood Blood Culture - Final 12/04/20 21:15 Sputum - Expectorated Sputum Sputum Culture - Final Pseudomonas Aeruginosa 12/04/20 21:15 Sputum - Expectorated Sputum - Final Laboratory WBC 7.7 X10^3/uL (3.6-10.0) 12/13/20 10:35 RBC 3.56 X10^6/uL (3.5-5.4) 12/13/20 10:35 Hgb 11.1 g/dL (12.0-16.0) L 12/13/20 10:35 Hct 33.0 % (36.0-47.0) L 12/13/20 10:35 MCV 92.7 fL (80.0-100.0) 12/13/20 10:35 MCH 31.1 pg (27.0-34.0) 12/13/20 10:35 MCHC 33.5 g/dL (33.0-35.0) 12/13/20 10:35 RDW 13.7 % (11.6-16.5) 12/13/20 10:35 Plt Count 183 X10^3/uL (150.0-450.0) 12/13/20 10:35 MPV 11.0 fL (7.4-11.0) 12/13/20 10:35 Neut % (Auto) 81.1 % (42.0-75.0) H 12/13/20 10:35 Lymph % (Auto) 9.2 % (21.0-51.0) L 12/13/20 10:35 [place] % (Auto) 9.4 % (0.0-13.0) 12/13/20 10:35 Eos % (Auto) 0.1 % (0.9-2.9) L 12/13/20 10:35 Baso % (Auto) 0.2 % (0.2-1.0) 12/13/20 10:35 Neut # (Auto) 6.3 x10^3/uL (2.2-4.8) H 12/13/20 10:35 Lymph # (Auto) 0.7 X10^3/uL (1.3-2.9) L 12/13/20 10:35 [place] # (Auto) 0.7 x10^3/uL (0.3-0.8) 12/13/20 10:35 Eos # (Auto) 0.0 x10^3/uL (0.0-0.2) 12/13/20 10:35 Baso # (Auto) 0.0 X10^3/uL (0.0-0.1) 12/13/20 10:35 Absolute Nucleated RBC 0.0 /100WBC 12/13/20 10:35 D-Dimer 0.39 ug/ml (0.0-0.57) 12/08/20 05:39 Sample Site Lr 12/08/20 04:35 ABG pH 7.400 (7.35-7.45) 12/08/20 04:35 ABG pCO2 35.0 mmHg (35.0-45.0) 12/08/20 04:35 ABG pO2 72.0 mmHg (80.0-100.0) L 12/08/20 04:35 ABG HCO3 21.7 mmol/L (22-26) L 12/08/20 04:35 ABG O2 Saturation 94.0 % (90-100) 12/08/20 04:35 ABG Base Excess -2.6 mmol/L (-2.0-2.0) L 12/08/20 04:35 Agusto Test Pos 12/08/20 04:35 A-a Gradient 512.0 mmHg 12/08/20 04:35 FiO2 88.0 12/08/20 04:35 Blood Gas Comments Rigo well ae 12/08/20 04:35 Sodium 150 mmol/L (136-145) H* 12/13/20 10:35 Corrected Sodium 152 mmol/L (136-145) H 12/13/20 10:35 Potassium 3.2 mmol/L (3.5-5.1) L 12/13/20 19:30 Chloride 112 mmol/L (98-107) H 12/13/20 10:35 Carbon Dioxide 16.6 mmol/L (21-32) L 12/13/20 10:35 BUN 13 mg/dL (7-18) 12/13/20 10:35 Creatinine 0.95 mg/dL (0.55-1.02) 12/13/20 10:35 Est GFR (MDRD) Af Amer > 60 (>60) 12/13/20 10:35 Est GFR (MDRD) Non-Af > 60 (>60) 12/13/20 10:35 Glucose 198 mg/dL (65-99) H 12/13/20 10:35 POC Glucose (mg/dL) 139 mg/dL (65-99) H 12/13/20 19:43 Lactic Acid 2.2 mmol/L (0.4-2.0) H 12/03/20 10:55 Calcium 8.8 mg/dL (8.5-10.1) 12/13/20 10:35 Corrected Calcium 9.9 mg/dL (8.5-10.1) 12/13/20 10:35 Magnesium 2.5 mg/dL (1.7-2.9) 12/13/20 10:35 Ferritin 1234 ng/mL (8-252) H 12/08/20 05:39 Total Bilirubin 1.40 mg/dL (0.2-1.0) H 12/13/20 10:35 AST 33 Units/L (15-37) 12/13/20 10:35 ALT 34 Units/L (12-78) 12/13/20 10:35 Alkaline Phosphatase 47 Units/L (46-116) 12/13/20 10:35 Creatine Kinase 955 Units/L (26-192) H 12/03/20 10:55 CK-MB (CK-2) < 1.0 ng/mL (0-4.0) 12/03/20 10:55 CK/CKMB % Calc 0.1 % (<4) 12/03/20 10:55 Troponin I < 0.02 ng/mL (0-1.5) 12/03/20 10:55 C-Reactive Protein 6.50 mg/L (0-3.0) H 12/08/20 05:39 B-Natriuretic Peptide 97.1 pg/mL (0-79) H 12/08/20 05:39 Total Protein 6.0 g/dL (6.4-8.2) L 12/13/20 10:35 Albumin 2.6 g/dL (3.4-5.0) L 12/13/20 10:35 Globulin 3.4 g/dL (2.5-4.5) 12/13/20 10:35 Albumin/Globulin Ratio 0.8 Ratio (1.1-2.1) L 12/13/20 10:35 Specimen Type Catherized urine 12/12/20 18:20 Urine Color Yellow (YELLOW) 12/12/20 18:20 Urine Appearance Clear (CLEAR) 12/12/20 18:20 Urine pH 6.0 (5.0 - 8.0) 12/12/20 18:20 Ur Specific [place] 1.015 (1.000-1.030) 12/12/20 18:20 Urine Protein 1+ (NEGATIVE) 12/12/20 18:20 Urine Glucose (UA) 4+ (NEGATIVE) 12/12/20 18:20 Urine Ketones 4+ (NEGATIVE) 12/12/20 18:20 Urine Occult Blood 1+ (NEGATIVE) 12/12/20 18:20 Urine Nitrite Negative (NEGATIVE) 12/12/20 18:20 Urine Bilirubin Negative (NEGATIVE) 12/12/20 18:20 Urine Urobilinogen Normal (NORMAL) 12/12/20 18:20 Ur Leukocyte Esterase Negative (NEGATIVE) 12/12/20 18:20 Urine RBC 3-5 /HPF (0-3) A 12/12/20 18:20 Urine WBC 0-2 /HPF (0-5) 12/12/20 18:20 Ur Squamous Epith Cells Few /HPF (NEGATIVE) 12/12/20 18:20 Urine Bacteria Trace /HPF (NEGATIVE) 12/12/20 18:20 Urine Yeast Numerous /HPF (NEGATIVE) 12/12/20 18:20 Ur Culture Indicated? No/not indicated 12/12/20 18:20 SARS-CoV-2 (PCR) Positive (NEGATIVE) A 12/03/20 12:18 Influenza Type A (PCR) Negative (NEGATIVE) 12/03/20 12:18 Influenza Type B (PCR) Negative (NEGATIVE) 12/03/20 12:18 RSV (PCR) Negative (NEGATIVE) 12/03/20 12:18 Plan (1) Pneumonia due to COVID-19 virus: Status: Acute Plan: Pneumonia protocol
[2020-12-14] MEDS: TESSALON PERLES PO SCH ×3 (05:33→21:46)
[2020-12-14 06:23] LABS: BASOPHILS % (AUTO) 0.2 % (0.2-1.0); EOSINOPHILS % (AUTO) 0.2 % (0.9-2.9); HEMATOCRIT 28.3 % (36.0-47.0); HEMOGLOBIN 9.8 g/dL (12.0-16.0); LYMPHOCYTES # (AUTO) 0.9 X10^3/uL (1.3-2.9); LYMPHOCYTES % (AUTO) 14.1 % (21.0-51.0); MEAN CORPUSCULAR HEMOGLOBIN 31.4 pg (27.0-34.0); MEAN CORPUSCULAR HGB CONC 34.5 g/dL (33.0-35.0); MEAN CORPUSCULAR VOLUME 91.1 fL (80.0-100.0); MEAN PLATELET VOLUME 11.3 fL (7.4-11.0); MONOCYTES # (AUTO) 0.6 x10^3/uL (0.3-0.8); MONOCYTES % (AUTO) 9.6 % (0.0-13.0); NEUTROPHILS # (AUTO) 4.8 x10^3/uL (2.2-4.8); NEUTROPHILS % (AUTO) 75.9 % (42.0-75.0); PLATELET COUNT 148 X10^3/uL (150.0-450.0); RED CELL DISTRIBUTION WIDTH 13.7 % (11.6-16.5); WHITE BLOOD COUNT 6.4 X10^3/uL (3.6-10.0)
[2020-12-14 06:48] LABS: ALANINE AMINOTRANSFERASE 33 Units/L (12-78); ALBUMIN 2.3 g/dL (3.4-5.0); ALKALINE PHOSPHATASE 43 Units/L (46-116); ASPARTATE AMINO TRANSFERASE 31 Units/L (15-37); BLOOD UREA NITROGEN 11 mg/dL (7-18); CALCIUM 8.2 mg/dL (8.5-10.1); CARBON DIOXIDE 22.5 mmol/L (21-32); CHLORIDE 112 mmol/L (98-107); COR CA(FOR HYPOALB) 9.6 mg/dL (8.5-10.1); COR NA(FOR HYPERGLY) 149 mmol/L (136-145); CREATININE 0.86 mg/dL (0.55-1.02); SODIUM 148 mmol/L (136-145); TOTAL PROTEIN 5.5 g/dL (6.4-8.2); eGFR NON BLACK RACES > 60 (>60)
[2020-12-14] MEDS: BROVANA IN SCH ×2 (08:50→21:22)
[2020-12-14] MEDS: PULMICORT NEB TX 0.5 MG NEB SCH ×2 (08:50→21:22)
[2020-12-14] MEDS: INVOKANA PO SCH (09:14)
[2020-12-14] MEDS: ACTOS PO SCH (09:14)
[2020-12-14] MEDS: LEVAQUIN TAB 750 MG PO SCH (09:14)
[2020-12-14] MEDS: LOVENOX INJ 30 MG SYR SC SCH ×2 (09:14→20:54)
[2020-12-14] MEDS: PEPCID TAB 40 MG PO SCH ×2 (09:18→20:53)
[2020-12-14] MEDS: GLUCOPHAGE XR 24-HR PO SCH ×2 (09:18→20:53)
[2020-12-14] MEDS: K-DUR TAB 20 MEQ PO PRN ×2 (09:41→21:46)
--- NOTE | 2020-12-14 11:01 | RAD ---
HISTORYFollow up pneumoniaSTUDYPortable AP [id number]/05/2021FINDINGSContinued normal heart size with stable position left subclavian vonnie e. Slight interval increase in bilateral pulmonary infiltrates. No pneumothorax or pleural fluid seen .IMPRESSIONSlight progression of bilateral pneumonia.Electronically signed by: ARNALDO STROUD (Dec 10:59:21)
[2020-12-14] MEDS ORDERED: BUTT CREAM (COMPOUND) TOP PRN (11:34)
--- NOTE | 2020-12-14 15:25 | NOTE.SOAP ---
Soap Note Note for Day of Date of Exam: 12/14/20 Subjective Data Subjective Data: Central venous line placed by me yesterday. Line only used for blood draws. CXR with pneumonia and no pneumothorax. Objective Data Temperature: 98.8 F Pulse Rate: 88 Respiratory Rate: 20 Blood Pressure: 137/63 O2 Sat by Pulse Oximetry: 94 Objective Data: in NAD Assessment Assessment: Central line placement Plan Plan: I will sign off for now.
[2020-12-14] MEDS: KLOR-CON PO PRN (17:38)
[2020-12-14] MEDS: SNACK - Diabetic Appropriate PO SCH (20:52)
[2020-12-14] MEDS: LIPITOR TAB 80 MG PO SCH (20:53)
[2020-12-14] MEDS: MELATONIN PO SCH (20:53)
[2020-12-14] MEDS: PERIACTIN TAB 4 MG PO PRN (22:08)
--- NOTE | 2020-12-14 23:16 | PCM.PROG ---
Progress Note Progress Note for Day of Date of Exam: 12/14/20 Subjective Subjective: Pt is a 65 year old female admitted for COVID-19 pneumonia with hypoxia. This morning patient is resting comfortably in bed. No acute events overnight. Per nursing her mental status appears to be improving. Surgery was able to place central line. Labs/imaging: Wbc 6.4, Hgb 9.8, Plt 148, Na 148, K 3.4, Creatinine 0.86, Glucose 134. MRI brain will be ordered when technicians return due to weekend and holiday on Monday. CT brain no acute abnormalities that would explain behavior. Pt has also been on high dose steroids that have been discontinued. CXR: Slight progression of bilateral pneumonia. Pt is currently utilizing 3L nasal cannula supplemental oxygen. Continue treatment course that includes: Scheduled Bronchodilators, Lovenox 30mg BID, immune supporting supplements, supplemental O2, I/S, Respiratory therapy consult, Pneumonia protocol. Replete potassium per protocol. Pt will need aggressive Physical therapy and discharge planning with case management. Wean/titrate oxygen as tolerated. Continue to monitor closely and follow up labs/imaging in the morning. Time spent on clinical assessment, reviewing labs and imaging, decision making, and documentation greater than 45 minutes. Past Medical Family Social History Past Med/Fam/Surg Hx: No changes since H&P Allergies: Allergies No Known Drug Allergies Allergy (Verified 05/13/20 08:54) Review of Systems ROS: No change since H&P Vital Signs and I&O's Vital Signs: Temperature 98.5 F Pulse Rate [Left] 92 Pulse Rate 88 Respiratory Rate 20 Blood Pressure [Left Arm] 123/59 Blood Pressure [Right Arm] 115/60 Blood Pressure 137/63 O2 Sat by Pulse Oximetry 98 Intake and Output: Intake & Output 12/11/20 12/12/20 12/13/20 12/14/20 23:59 23:59 23:59 23:59 Intake Total 440 / 440 880 / 880 1490 / 1490 520 / 520 Output Total 2 / 2 Balance 440 / 440 880 / 880 1490 / 1490 518 / 518 Physical Exam Oriented: Normal Eyes: Normal Ear: Normal Nose: Normal Throat: Normal Respiratory: Diminished and Rales Cardiovascular: Normal : Normal Auscultation: Bowel Sounds: Normal Tenderness: Normal Skin: Normal Musculoskeletal: Normal Psychiatric: Normal Mood Description: Calm Speech Pattern: Clear and Appropriate Laboratory and Diagnostics Result Diagrams: 12/14/20 05:32 12/14/20 18:52 Labs: 12/03/20 10:55 Blood Blood Culture - Final 12/03/20 10:50 Blood Blood Culture - Final 12/04/20 21:15 Sputum - Expectorated Sputum Sputum Culture - Final Pseudomonas Aeruginosa 12/04/20 21:15 Sputum - Expectorated Sputum - Final Laboratory WBC 6.4 X10^3/uL (3.6-10.0) 12/14/20 05:32 RBC 3.10 X10^6/uL (3.5-5.4) L 12/14/20 05:32 Hgb 9.8 g/dL (12.0-16.0) L 12/14/20 05:32 Hct 28.3 % (36.0-47.0) L 12/14/20 05:32 MCV 91.1 fL (80.0-100.0) 12/14/20 05:32 MCH 31.4 pg (27.0-34.0) 12/14/20 05:32 MCHC 34.5 g/dL (33.0-35.0) 12/14/20 05:32 RDW 13.7 % (11.6-16.5) 12/14/20 05:32 Plt Count 148 X10^3/uL (150.0-450.0) L 12/14/20 05:32 MPV 11.3 fL (7.4-11.0) H 12/14/20 05:32 Neut % (Auto) 75.9 % (42.0-75.0) H 12/14/20 05:32 Lymph % (Auto) 14.1 % (21.0-51.0) L 12/14/20 05:32 [place] % (Auto) 9.6 % (0.0-13.0) 12/14/20 05:32 Eos % (Auto) 0.2 % (0.9-2.9) L 12/14/20 05:32 Baso % (Auto) 0.2 % (0.2-1.0) 12/14/20 05:32 Neut # (Auto) 4.8 x10^3/uL (2.2-4.8) 12/14/20 05:32 Lymph # (Auto) 0.9 X10^3/uL (1.3-2.9) L 12/14/20 05:32 [place] # (Auto) 0.6 x10^3/uL (0.3-0.8) 12/14/20 05:32 Eos # (Auto) 0.0 x10^3/uL (0.0-0.2) 12/14/20 05:32 Baso # (Auto) 0.0 X10^3/uL (0.0-0.1) 12/14/20 05:32 Absolute Nucleated RBC 0.0 /100WBC 12/14/20 05:32 D-Dimer 0.39 ug/ml (0.0-0.57) 12/08/20 05:39 Sample Site Lr 12/08/20 04:35 ABG pH 7.400 (7.35-7.45) 12/08/20 04:35 ABG pCO2 35.0 mmHg (35.0-45.0) 12/08/20 04:35 ABG pO2 72.0 mmHg (80.0-100.0) L 12/08/20 04:35 ABG HCO3 21.7 mmol/L (22-26) L 12/08/20 04:35 ABG O2 Saturation 94.0 % (90-100) 12/08/20 04:35 ABG Base Excess -2.6 mmol/L (-2.0-2.0) L 12/08/20 04:35 Agusto Test Pos 12/08/20 04:35 A-a Gradient 512.0 mmHg 12/08/20 04:35 FiO2 88.0 12/08/20 04:35 Blood Gas Comments Rigo well ae 12/08/20 04:35 Sodium 148 mmol/L (136-145) H 12/14/20 05:32 Corrected Sodium 149 mmol/L (136-145) H 12/14/20 05:32 Potassium 3.5 mmol/L (3.5-5.1) 12/14/20 18:52 Chloride 112 mmol/L (98-107) H 12/14/20 05:32 Carbon Dioxide 22.5 mmol/L (21-32) 12/14/20 05:32 BUN 11 mg/dL (7-18) 12/14/20 05:32 Creatinine 0.86 mg/dL (0.55-1.02) 12/14/20 05:32 Est GFR (MDRD) Af Amer > 60 (>60) 12/14/20 05:32 Est GFR (MDRD) Non-Af > 60 (>60) 12/14/20 05:32 Glucose 134 mg/dL (65-99) H 12/14/20 05:32 POC Glucose (mg/dL) 185 mg/dL (65-99) H 12/14/20 19:27 Lactic Acid 2.2 mmol/L (0.4-2.0) H 12/03/20 10:55 Calcium 8.2 mg/dL (8.5-10.1) L 12/14/20 05:32 Corrected Calcium 9.6 mg/dL (8.5-10.1) 12/14/20 05:32 Magnesium 2.5 mg/dL (1.7-2.9) 12/13/20 10:35 Ferritin 1234 ng/mL (8-252) H 12/08/20 05:39 Total Bilirubin 1.10 mg/dL (0.2-1.0) H 12/14/20 05:32 AST 31 Units/L (15-37) 12/14/20 05:32 ALT 33 Units/L (12-78) 12/14/20 05:32 Alkaline Phosphatase 43 Units/L (46-116) L 12/14/20 05:32 Creatine Kinase 955 Units/L (26-192) H 12/03/20 10:55 CK-MB (CK-2) < 1.0 ng/mL (0-4.0) 12/03/20 10:55 CK/CKMB % Calc 0.1 % (<4) 12/03/20 10:55 Troponin I < 0.02 ng/mL (0-1.5) 12/03/20 10:55 C-Reactive Protein 6.50 mg/L (0-3.0) H 12/08/20 05:39 B-Natriuretic Peptide 97.1 pg/mL (0-79) H 12/08/20 05:39 Total Protein 5.5 g/dL (6.4-8.2) L 12/14/20 05:32 Albumin 2.3 g/dL (3.4-5.0) L 12/14/20 05:32 Globulin 3.2 g/dL (2.5-4.5) 12/14/20 05:32 Albumin/Globulin Ratio 0.7 Ratio (1.1-2.1) L 12/14/20 05:32 Specimen Type Catherized urine 12/12/20 18:20 Urine Color Yellow (YELLOW) 12/12/20 18:20 Urine Appearance Clear (CLEAR) 12/12/20 18:20 Urine pH 6.0 (5.0 - 8.0) 12/12/20 18:20 Ur Specific [place] 1.015 (1.000-1.030) 12/12/20 18:20 Urine Protein 1+ (NEGATIVE) 12/12/20 18:20 Urine Glucose (UA) 4+ (NEGATIVE) 12/12/20 18:20 Urine Ketones 4+ (NEGATIVE) 12/12/20 18:20 Urine Occult Blood 1+ (NEGATIVE) 12/12/20 18:20 Urine Nitrite Negative (NEGATIVE) 12/12/20 18:20 Urine Bilirubin Negative (NEGATIVE) 12/12/20 18:20 Urine Urobilinogen Normal (NORMAL) 12/12/20 18:20 Ur Leukocyte Esterase Negative (NEGATIVE) 12/12/20 18:20 Urine RBC 3-5 /HPF (0-3) A 12/12/20 18:20 Urine WBC 0-2 /HPF (0-5) 12/12/20 18:20 Ur Squamous Epith Cells Few /HPF (NEGATIVE) 12/12/20 18:20 Urine Bacteria Trace /HPF (NEGATIVE) 12/12/20 18:20 Urine Yeast Numerous /HPF (NEGATIVE) 12/12/20 18:20 Ur Culture Indicated? No/not indicated 12/12/20 18:20 SARS-CoV-2 (PCR) Positive (NEGATIVE) A 12/03/20 12:18 Influenza Type A (PCR) Negative (NEGATIVE) 12/03/20 12:18 Influenza Type B (PCR) Negative (NEGATIVE) 12/03/20 12:18 RSV (PCR) Negative (NEGATIVE) 12/03/20 12:18 Plan (1) Pneumonia due to COVID-19 virus: Status: Acute Plan: Pneumonia protocol
[2020-12-15] MEDS: TUSSIONEX PENNKINETIC SUSP PO PRN (00:51)
[2020-12-15] MEDS: TESSALON PERLES PO SCH ×3 (05:32→21:06)
[2020-12-15 06:20] LABS: BASOPHILS % (AUTO) 0.3 % (0.2-1.0); EOSINOPHILS % (AUTO) 0.3 % (0.9-2.9); HEMATOCRIT 30.5 % (36.0-47.0); HEMOGLOBIN 10.5 g/dL (12.0-16.0); LYMPHOCYTES % (AUTO) 12.7 % (21.0-51.0); MEAN CORPUSCULAR HEMOGLOBIN 31.5 pg (27.0-34.0); MEAN CORPUSCULAR HGB CONC 34.4 g/dL (33.0-35.0); MEAN CORPUSCULAR VOLUME 91.5 fL (80.0-100.0); MEAN PLATELET VOLUME 11.7 fL (7.4-11.0); MONOCYTES # (AUTO) 0.8 x10^3/uL (0.3-0.8); MONOCYTES % (AUTO) 10.2 % (0.0-13.0); NEUTROPHILS # (AUTO) 5.9 x10^3/uL (2.2-4.8); NEUTROPHILS % (AUTO) 76.5 % (42.0-75.0); PLATELET COUNT 137 X10^3/uL (150.0-450.0); RED BLOOD COUNT 3.33 X10^6/uL (3.5-5.4); RED CELL DISTRIBUTION WIDTH 14.1 % (11.6-16.5); WHITE BLOOD COUNT 7.7 X10^3/uL (3.6-10.0)
[2020-12-15 06:36] LABS: ALANINE AMINOTRANSFERASE 37 Units/L (12-78); ALBUMIN 2.5 g/dL (3.4-5.0); ALKALINE PHOSPHATASE 60 Units/L (46-116); ASPARTATE AMINO TRANSFERASE 33 Units/L (15-37); BLOOD UREA NITROGEN 12 mg/dL (7-18); CALCIUM 8.6 mg/dL (8.5-10.1); CARBON DIOXIDE 24.5 mmol/L (21-32); CHLORIDE 107 mmol/L (98-107); COR CA(FOR HYPOALB) 9.8 mg/dL (8.5-10.1); COR NA(FOR HYPERGLY) 145 mmol/L (136-145); CREATININE 0.91 mg/dL (0.55-1.02); SODIUM 144 mmol/L (136-145); eGFR NON BLACK RACES > 60 (>60)
--- NOTE | 2020-12-15 07:47 | RAD ---
HISTORYPNEUMONIA F/USTUDYCHEST, 1 [id number]/2021FINDINGSThe lungs may be better inflated than on the prior study.Bronchopneumonia is improved. No pleural effusion or pneumothorax.Heart size is normal.Bones are unremarkable.Left subclavian central venous catheter is in the expected location of the superior vena cava. EKG leads are noted.IMPRESSION1. Improved aeration2. Improved bronchopneumoniaElectronically signed by: Cleveland Montes (Dec 15, 2020 07:46:01)
[2020-12-15] MEDS: GLUCOPHAGE XR 24-HR PO SCH ×2 (08:32→21:05)
[2020-12-15] MEDS: INVOKANA PO SCH (08:33)
[2020-12-15] MEDS: PEPCID TAB 40 MG PO SCH ×2 (08:34→21:06)
[2020-12-15] MEDS: ACTOS PO SCH (08:34)
[2020-12-15] MEDS: LEVAQUIN TAB 750 MG PO SCH (08:34)
[2020-12-15] MEDS: PULMICORT NEB TX 0.5 MG NEB SCH ×2 (09:00→20:25)
[2020-12-15] MEDS: BROVANA IN SCH ×2 (09:00→20:25)
--- NOTE | 2020-12-15 17:27 | MRI ---
HISTORYDYSARTHRIA; 20CC MULTIHANCESTUDYBRAIN W W/O CONCOMPARISONCT December 11, 2020TECHNIQUEMultiplanar multi-sequence MRI of the brain was obtained. Sagittal T1, axial T1, axial T2, axial flair images, coronal T1, sagittal T1 post contrast, coronal T1 postcontrast, axial T1 postcontrast images were obtained.FINDINGSThe midline structures appear intact. The posterior fossa is unremarkable. The sulcal markings of the brain are normal in their appearance. Normal vega-white differentiation is maintained. No evidence for intraparenchymal hemorrhage or mass can be identified. No extra-axial fluid collections or subarachnoid hematoma can be seen. Evaluation of the diffusion weighted images demonstrates no evidence for acute ischemic change. Mild periventricular small vessel ischemic changes are noted along with age-appropriate atrophy. The cerebral pontine angle is normal in its contour without evidence for mass. The ventricular system appears symmetric and nondilated. There is some chronic appearing maxillary sinus disease noted.Postcontrast enhancement demonstrates no evidence for an enhancing lesion such as mass or vascular malformation.IMPRESSIONMild periventricular small vessel ischemic changes and age-appropriate atrophy with no evidence for acute/subacute stroke.Electronically signed by: SAIMA BARLOW (Dec 15, 2020 17:24:41)
[2020-12-15] MEDS: LIPITOR TAB 80 MG PO SCH (21:05)
[2020-12-15] MEDS: SNACK - Diabetic Appropriate PO SCH (21:05)
[2020-12-15] MEDS: MELATONIN PO SCH (21:05)
[2020-12-15] MEDS: K-DUR TAB 20 MEQ PO PRN (21:06)
--- NOTE | 2020-12-15 22:34 | PCM.PROG ---
Progress Note Progress Note for Day of Date of Exam: 12/15/20 Subjective Subjective: Pt is a 65 year old female admitted for COVID-19 pneumonia with hypoxia. Patient appears to be resting comfortably in bed this morning. No acute events overnight. Labs/imaging: Wbc 7.7, Hgb 10.5, Plt 137, Na 144, K 3.5, Creatinine 0.91, Glucose 151. MRI brain ordered to evaluate due to initial altered mental status since CT brain revealed no acute abnormalities that would explain behavior. CXR: 1. Improved aeration 2. Improved bronchopneumonia. Pt is currently utilizing 3L nasal cannula supplemental oxygen. Continue treatment course that includes: Scheduled Bronchodilators, Lovenox 30mg BID, immune supporting supplements, supplemental O2, I/S, Respiratory therapy consult, Pneumonia protocol. Have physical therapy work with patient today. Wean/titrate oxygen as tolerated. Continue to monitor closely and follow up labs/imaging in the morning. Time spent on clinical assessment, reviewing labs and imaging, decision making, and documentation greater than 45 minutes. Past Medical Family Social History Past Med/Fam/Surg Hx: No changes since H&P Allergies: Allergies No Known Drug Allergies Allergy (Verified 05/13/20 08:54) Review of Systems ROS: No change since H&P Vital Signs and I&O's Vital Signs: Temperature 97.8 F Pulse Rate [Left] 90 Pulse Rate 88 Respiratory Rate 21 Blood Pressure [Left Arm] 117/57 Blood Pressure [Right Arm] 107/58 Blood Pressure 137/63 O2 Sat by Pulse Oximetry 93 Intake and Output: Intake & Output 12/12/20 12/13/20 12/14/20 12/15/20 23:59 23:59 23:59 23:59 Intake Total 880 / 880 1490 / 1490 1180 / 1180 450 / 450 Output Total 2 / 2 Balance 880 / 880 1490 / 1490 1178 / 1178 450 / 450 Physical Exam Oriented: Normal Eyes: Normal Ear: Normal Nose: Normal Throat: Normal Respiratory: Diminished and Rales Cardiovascular: Normal : Normal Auscultation: Bowel Sounds: Normal Tenderness: Normal Skin: Normal Musculoskeletal: Normal Psychiatric: Normal Mood Description: Calm Speech Pattern: Clear and Appropriate Laboratory and Diagnostics Result Diagrams: 12/15/20 05:34 12/15/20 05:34 Labs: 12/03/20 10:55 Blood Blood Culture - Final 12/03/20 10:50 Blood Blood Culture - Final 12/04/20 21:15 Sputum - Expectorated Sputum Sputum Culture - Final Pseudomonas Aeruginosa 12/04/20 21:15 Sputum - Expectorated Sputum - Final Laboratory WBC 7.7 X10^3/uL (3.6-10.0) 12/15/20 05:34 RBC 3.33 X10^6/uL (3.5-5.4) L 12/15/20 05:34 Hgb 10.5 g/dL (12.0-16.0) L 12/15/20 05:34 Hct 30.5 % (36.0-47.0) L 12/15/20 05:34 MCV 91.5 fL (80.0-100.0) 12/15/20 05:34 MCH 31.5 pg (27.0-34.0) 12/15/20 05:34 MCHC 34.4 g/dL (33.0-35.0) 12/15/20 05:34 RDW 14.1 % (11.6-16.5) 12/15/20 05:34 Plt Count 137 X10^3/uL (150.0-450.0) L 12/15/20 05:34 MPV 11.7 fL (7.4-11.0) H 12/15/20 05:34 Neut % (Auto) 76.5 % (42.0-75.0) H 12/15/20 05:34 Lymph % (Auto) 12.7 % (21.0-51.0) L 12/15/20 05:34 [place] % (Auto) 10.2 % (0.0-13.0) 12/15/20 05:34 Eos % (Auto) 0.3 % (0.9-2.9) L 12/15/20 05:34 Baso % (Auto) 0.3 % (0.2-1.0) 12/15/20 05:34 Neut # (Auto) 5.9 x10^3/uL (2.2-4.8) H 12/15/20 05:34 Lymph # (Auto) 1.0 X10^3/uL (1.3-2.9) L 12/15/20 05:34 [place] # (Auto) 0.8 x10^3/uL (0.3-0.8) 12/15/20 05:34 Eos # (Auto) 0.0 x10^3/uL (0.0-0.2) 12/15/20 05:34 Baso # (Auto) 0.0 X10^3/uL (0.0-0.1) 12/15/20 05:34 Absolute Nucleated RBC 0.1 /100WBC 12/15/20 05:34 D-Dimer 0.39 ug/ml (0.0-0.57) 12/08/20 05:39 Sample Site Lr 12/08/20 04:35 ABG pH 7.400 (7.35-7.45) 12/08/20 04:35 ABG pCO2 35.0 mmHg (35.0-45.0) 12/08/20 04:35 ABG pO2 72.0 mmHg (80.0-100.0) L 12/08/20 04:35 ABG HCO3 21.7 mmol/L (22-26) L 12/08/20 04:35 ABG O2 Saturation 94.0 % (90-100) 12/08/20 04:35 ABG Base Excess -2.6 mmol/L (-2.0-2.0) L 12/08/20 04:35 Agusto Test Pos 12/08/20 04:35 A-a Gradient 512.0 mmHg 12/08/20 04:35 FiO2 88.0 12/08/20 04:35 Blood Gas Comments Rigo well ae 12/08/20 04:35 Sodium 144 mmol/L (136-145) 12/15/20 05:34 Corrected Sodium 145 mmol/L (136-145) 12/15/20 05:34 Potassium 3.5 mmol/L (3.5-5.1) 12/15/20 05:34 Chloride 107 mmol/L (98-107) 12/15/20 05:34 Carbon Dioxide 24.5 mmol/L (21-32) 12/15/20 05:34 BUN 12 mg/dL (7-18) 12/15/20 05:34 Creatinine 0.91 mg/dL (0.55-1.02) 12/15/20 05:34 Est GFR (MDRD) Af Amer > 60 (>60) 12/15/20 05:34 Est GFR (MDRD) Non-Af > 60 (>60) 12/15/20 05:34 Glucose 151 mg/dL (65-99) H 12/15/20 05:34 POC Glucose (mg/dL) 131 mg/dL (65-99) H 12/15/20 19:15 Lactic Acid 2.2 mmol/L (0.4-2.0) H 12/03/20 10:55 Calcium 8.6 mg/dL (8.5-10.1) 12/15/20 05:34 Corrected Calcium 9.8 mg/dL (8.5-10.1) 12/15/20 05:34 Magnesium 2.5 mg/dL (1.7-2.9) 12/13/20 10:35 Ferritin 1234 ng/mL (8-252) H 12/08/20 05:39 Total Bilirubin 1.00 mg/dL (0.2-1.0) 12/15/20 05:34 AST 33 Units/L (15-37) 12/15/20 05:34 ALT 37 Units/L (12-78) 12/15/20 05:34 Alkaline Phosphatase 60 Units/L (46-116) 12/15/20 05:34 Creatine Kinase 955 Units/L (26-192) H 12/03/20 10:55 CK-MB (CK-2) < 1.0 ng/mL (0-4.0) 12/03/20 10:55 CK/CKMB % Calc 0.1 % (<4) 12/03/20 10:55 Troponin I < 0.02 ng/mL (0-1.5) 12/03/20 10:55 C-Reactive Protein 6.50 mg/L (0-3.0) H 12/08/20 05:39 B-Natriuretic Peptide 97.1 pg/mL (0-79) H 12/08/20 05:39 Total Protein 6.0 g/dL (6.4-8.2) L 12/15/20 05:34 Albumin 2.5 g/dL (3.4-5.0) L 12/15/20 05:34 Globulin 3.5 g/dL (2.5-4.5) 12/15/20 05:34 Albumin/Globulin Ratio 0.7 Ratio (1.1-2.1) L 12/15/20 05:34 Specimen Type Catherized urine 12/12/20 18:20 Urine Color Yellow (YELLOW) 12/12/20 18:20 Urine Appearance Clear (CLEAR) 12/12/20 18:20 Urine pH 6.0 (5.0 - 8.0) 12/12/20 18:20 Ur Specific Clyde 1.015 (1.000-1.030) 12/12/20 18:20 Urine Protein 1+ (NEGATIVE) 12/12/20 18:20 Urine Glucose (UA) 4+ (NEGATIVE) 12/12/20 18:20 Urine Ketones 4+ (NEGATIVE) 12/12/20 18:20 Urine Occult Blood 1+ (NEGATIVE) 12/12/20 18:20 Urine Nitrite Negative (NEGATIVE) 12/12/20 18:20 Urine Bilirubin Negative (NEGATIVE) 12/12/20 18:20 Urine Urobilinogen Normal (NORMAL) 12/12/20 18:20 Ur Leukocyte Esterase Negative (NEGATIVE) 12/12/20 18:20 Urine RBC 3-5 /HPF (0-3) A 12/12/20 18:20 Urine WBC 0-2 /HPF (0-5) 12/12/20 18:20 Ur Squamous Epith Cells Few /HPF (NEGATIVE) 12/12/20 18:20 Urine Bacteria Trace /HPF (NEGATIVE) 12/12/20 18:20 Urine Yeast Numerous /HPF (NEGATIVE) 12/12/20 18:20 Ur Culture Indicated? No/not indicated 12/12/20 18:20 SARS-CoV-2 (PCR) Positive (NEGATIVE) A 12/03/20 12:18 Influenza Type A (PCR) Negative (NEGATIVE) 12/03/20 12:18 Influenza Type B (PCR) Negative (NEGATIVE) 12/03/20 12:18 RSV (PCR) Negative (NEGATIVE) 12/03/20 12:18 Plan (1) Pneumonia due to COVID-19 virus: Status: Acute Plan: Pneumonia protocol
[2020-12-16] MEDS: TESSALON PERLES PO SCH ×3 (05:19→21:01)
[2020-12-16 06:28] LABS: BASOPHILS % (AUTO) 0.1 % (0.2-1.0); EOSINOPHILS % (AUTO) 0.6 % (0.9-2.9); HEMOGLOBIN 9.3 g/dL (12.0-16.0); LYMPHOCYTES # (AUTO) 0.9 X10^3/uL (1.3-2.9); LYMPHOCYTES % (AUTO) 14.7 % (21.0-51.0); MEAN CORPUSCULAR HEMOGLOBIN 31.6 pg (27.0-34.0); MEAN CORPUSCULAR HGB CONC 34.4 g/dL (33.0-35.0); MEAN CORPUSCULAR VOLUME 91.8 fL (80.0-100.0); MEAN PLATELET VOLUME 12.2 fL (7.4-11.0); MONOCYTES # (AUTO) 0.7 x10^3/uL (0.3-0.8); NEUTROPHILS # (AUTO) 4.3 x10^3/uL (2.2-4.8); NEUTROPHILS % (AUTO) 72.6 % (42.0-75.0); PLATELET COUNT 107 X10^3/uL (150.0-450.0); RED BLOOD COUNT 2.94 X10^6/uL (3.5-5.4); RED CELL DISTRIBUTION WIDTH 13.9 % (11.6-16.5); WHITE BLOOD COUNT 5.9 X10^3/uL (3.6-10.0)
[2020-12-16 06:35] LABS: ALANINE AMINOTRANSFERASE 35 Units/L (12-78); ALBUMIN 2.3 g/dL (3.4-5.0); ALKALINE PHOSPHATASE 45 Units/L (46-116); ASPARTATE AMINO TRANSFERASE 45 Units/L (15-37); BLOOD UREA NITROGEN 12 mg/dL (7-18); CALCIUM 8.1 mg/dL (8.5-10.1); CARBON DIOXIDE 26.9 mmol/L (21-32); CHLORIDE 107 mmol/L (98-107); COR CA(FOR HYPOALB) 9.5 mg/dL (8.5-10.1); COR NA(FOR HYPERGLY) 143 mmol/L (136-145); CREATININE 0.72 mg/dL (0.55-1.02); SODIUM 142 mmol/L (136-145); TOTAL PROTEIN 5.4 g/dL (6.4-8.2); eGFR NON BLACK RACES > 60 (>60)
--- NOTE | 2020-12-16 07:55 | RAD ---
HISTORYPNEUMONIA F/USTUDYCHEST, 1 [id number] cardiomediastinal silhouette is stable. Left chest port tubing unchanged. Similar bilateral airspace opacities. The bony thorax appears intact. Similar surgical clips overlying the right axilla.IMPRESSIONNo significant change.Electronically signed by: CHRISTINE ROJAS (Dec 16, 2020 07:53:47)
[2020-12-16] MEDS: PULMICORT NEB TX 0.5 MG NEB SCH ×2 (09:40→20:05)
[2020-12-16] MEDS: BROVANA IN SCH ×2 (09:40→20:05)
[2020-12-16] MEDS: INVOKANA PO SCH (10:05)
[2020-12-16] MEDS: ACTOS PO SCH (10:05)
[2020-12-16] MEDS: PEPCID TAB 40 MG PO SCH ×2 (10:05→20:40)
[2020-12-16] MEDS: LEVAQUIN TAB 750 MG PO SCH (10:05)
[2020-12-16] MEDS: GLUCOPHAGE XR 24-HR PO SCH ×2 (10:06→20:40)
[2020-12-16] MEDS: LOVENOX INJ 30 MG SYR SC SCH (11:00)
[2020-12-16] MEDS: ZOFRAN INJ 4 MG VIAL IVP PRN (12:35)
--- NOTE | 2020-12-16 16:18 | PCM.PROG ---
Progress Note Progress Note for Day of Date of Exam: 12/16/20 Subjective Subjective: Pt is a 65 year old female admitted for COVID-19 pneumonia with hypoxia. Patient appears anxious and upset this morning. She states she wants to do more physical therapy to regain her strength. No acute events overnight. Behavior and mental status appears back to baseline. She is currently utilizing 3L nasal cannula supplemental oxygen. Labs/imaging: Wbc 5.9, Hgb 9.3, Plt 107, Na 142, K 3.4, Creatinine 0.72, Glucose 134. MRI brain was obtained that revealed: Mild periventricular small vessel ischemic changes and age-appropriate atrophy with no evidence for acute/subacute stroke. CXR: Similar bilateral airspace opacities. Continue treatment course that includes: Scheduled Bronchodilators, Lovenox 30mg BID, immune supporting supplements, supplemental O2, I/S, Respiratory therapy consult, Pneumonia protocol. Physical therapy did work with patient later today and recommends long-term facility. Wean/titrate oxygen as tolerated. Continue to monitor closely and follow up labs/imaging in the morning. Past Medical Family Social History Past Med/Fam/Surg Hx: No changes since H&P Allergies: Allergies No Known Drug Allergies Allergy (Verified 05/13/20 08:54) Review of Systems ROS: No change since H&P Vital Signs and I&O's Vital Signs: Temperature 98.9 F Pulse Rate [Left] 96 Pulse Rate 89 Respiratory Rate 20 Blood Pressure [Left Arm] 123/69 Blood Pressure [Right Arm] 117/59 Blood Pressure 137/63 O2 Sat by Pulse Oximetry 93 Intake and Output: Intake & Output 12/13/20 12/14/20 12/15/20 12/16/20 23:59 23:59 23:59 23:59 Intake Total 1490 / 1490 1180 / 1180 470 / 470 1160 / 1160 Output Total 2 / 2 Balance 1490 / 1490 1178 / 1178 470 / 470 1160 / 1160 Physical Exam Oriented: Normal Eyes: Normal Ear: Normal Nose: Normal Throat: Normal Respiratory: Diminished and Rales Cardiovascular: Normal : Normal Auscultation: Bowel Sounds: Normal Tenderness: Normal Skin: Normal Musculoskeletal: Normal Psychiatric: Normal Mood Description: Calm Speech Pattern: Clear and Appropriate Laboratory and Diagnostics Result Diagrams: 12/16/20 05:30 12/16/20 05:30 Labs: 12/03/20 10:55 Blood Blood Culture - Final 12/03/20 10:50 Blood Blood Culture - Final 12/04/20 21:15 Sputum - Expectorated Sputum Sputum Culture - Final Pseudomonas Aeruginosa 12/04/20 21:15 Sputum - Expectorated Sputum - Final Laboratory WBC 5.9 X10^3/uL (3.6-10.0) 12/16/20 05:30 RBC 2.94 X10^6/uL (3.5-5.4) L 12/16/20 05:30 Hgb 9.3 g/dL (12.0-16.0) L 12/16/20 05:30 Hct 27.0 % (36.0-47.0) L 12/16/20 05:30 MCV 91.8 fL (80.0-100.0) 12/16/20 05:30 MCH 31.6 pg (27.0-34.0) 12/16/20 05:30 MCHC 34.4 g/dL (33.0-35.0) 12/16/20 05:30 RDW 13.9 % (11.6-16.5) 12/16/20 05:30 Plt Count 107 X10^3/uL (150.0-450.0) L 12/16/20 05:30 MPV 12.2 fL (7.4-11.0) H 12/16/20 05:30 Neut % (Auto) 72.6 % (42.0-75.0) 12/16/20 05:30 Lymph % (Auto) 14.7 % (21.0-51.0) L 12/16/20 05:30 [place] % (Auto) 12.0 % (0.0-13.0) 12/16/20 05:30 Eos % (Auto) 0.6 % (0.9-2.9) L 12/16/20 05:30 Baso % (Auto) 0.1 % (0.2-1.0) L 12/16/20 05:30 Neut # (Auto) 4.3 x10^3/uL (2.2-4.8) 12/16/20 05:30 Lymph # (Auto) 0.9 X10^3/uL (1.3-2.9) L 12/16/20 05:30 [place] # (Auto) 0.7 x10^3/uL (0.3-0.8) 12/16/20 05:30 Eos # (Auto) 0.0 x10^3/uL (0.0-0.2) 12/16/20 05:30 Baso # (Auto) 0.0 X10^3/uL (0.0-0.1) 12/16/20 05:30 Absolute Nucleated RBC 0.0 /100WBC 12/16/20 05:30 D-Dimer 0.39 ug/ml (0.0-0.57) 12/08/20 05:39 Sample Site Lr 12/08/20 04:35 ABG pH 7.400 (7.35-7.45) 12/08/20 04:35 ABG pCO2 35.0 mmHg (35.0-45.0) 12/08/20 04:35 ABG pO2 72.0 mmHg (80.0-100.0) L 12/08/20 04:35 ABG HCO3 21.7 mmol/L (22-26) L 12/08/20 04:35 ABG O2 Saturation 94.0 % (90-100) 12/08/20 04:35 ABG Base Excess -2.6 mmol/L (-2.0-2.0) L 12/08/20 04:35 Agusto Test Pos 12/08/20 04:35 A-a Gradient 512.0 mmHg 12/08/20 04:35 FiO2 88.0 12/08/20 04:35 Blood Gas Comments Rigo well ae 12/08/20 04:35 Sodium 142 mmol/L (136-145) 12/16/20 05:30 Corrected Sodium 143 mmol/L (136-145) 12/16/20 05:30 Potassium 3.4 mmol/L (3.5-5.1) L 12/16/20 05:30 Chloride 107 mmol/L (98-107) 12/16/20 05:30 Carbon Dioxide 26.9 mmol/L (21-32) 12/16/20 05:30 BUN 12 mg/dL (7-18) 12/16/20 05:30 Creatinine 0.72 mg/dL (0.55-1.02) 12/16/20 05:30 Est GFR (MDRD) Af Amer > 60 (>60) 12/16/20 05:30 Est GFR (MDRD) Non-Af > 60 (>60) 12/16/20 05:30 Glucose 134 mg/dL (65-99) H 12/16/20 05:30 POC Glucose (mg/dL) 131 mg/dL (65-99) H 12/16/20 12:35 Lactic Acid 2.2 mmol/L (0.4-2.0) H 12/03/20 10:55 Calcium 8.1 mg/dL (8.5-10.1) L 12/16/20 05:30 Corrected Calcium 9.5 mg/dL (8.5-10.1) 12/16/20 05:30 Magnesium 2.5 mg/dL (1.7-2.9) 12/13/20 10:35 Ferritin 1234 ng/mL (8-252) H 12/08/20 05:39 Total Bilirubin 1.10 mg/dL (0.2-1.0) H 12/16/20 05:30 AST 45 Units/L (15-37) H 12/16/20 05:30 ALT 35 Units/L (12-78) 12/16/20 05:30 Alkaline Phosphatase 45 Units/L (46-116) L 12/16/20 05:30 Creatine Kinase 955 Units/L (26-192) H 12/03/20 10:55 CK-MB (CK-2) < 1.0 ng/mL (0-4.0) 12/03/20 10:55 CK/CKMB % Calc 0.1 % (<4) 12/03/20 10:55 Troponin I < 0.02 ng/mL (0-1.5) 12/03/20 10:55 C-Reactive Protein 6.50 mg/L (0-3.0) H 12/08/20 05:39 B-Natriuretic Peptide 97.1 pg/mL (0-79) H 12/08/20 05:39 Total Protein 5.4 g/dL (6.4-8.2) L 12/16/20 05:30 Albumin 2.3 g/dL (3.4-5.0) L 12/16/20 05:30 Globulin 3.1 g/dL (2.5-4.5) 12/16/20 05:30 Albumin/Globulin Ratio 0.7 Ratio (1.1-2.1) L 12/16/20 05:30 Specimen Type Catherized urine 12/12/20 18:20 Urine Color Yellow (YELLOW) 12/12/20 18:20 Urine Appearance Clear (CLEAR) 12/12/20 18:20 Urine pH 6.0 (5.0 - 8.0) 12/12/20 18:20 Ur Specific [place] 1.015 (1.000-1.030) 12/12/20 18:20 Urine Protein 1+ (NEGATIVE) 12/12/20 18:20 Urine Glucose (UA) 4+ (NEGATIVE) 12/12/20 18:20 Urine Ketones 4+ (NEGATIVE) 12/12/20 18:20 Urine Occult Blood 1+ (NEGATIVE) 12/12/20 18:20 Urine Nitrite Negative (NEGATIVE) 12/12/20 18:20 Urine Bilirubin Negative (NEGATIVE) 12/12/20 18:20 Urine Urobilinogen Normal (NORMAL) 12/12/20 18:20 Ur Leukocyte Esterase Negative (NEGATIVE) 12/12/20 18:20 Urine RBC 3-5 /HPF (0-3) A 12/12/20 18:20 Urine WBC 0-2 /HPF (0-5) 12/12/20 18:20 Ur Squamous Epith Cells Few /HPF (NEGATIVE) 12/12/20 18:20 Urine Bacteria Trace /HPF (NEGATIVE) 12/12/20 18:20 Urine Yeast Numerous /HPF (NEGATIVE) 12/12/20 18:20 Ur Culture Indicated? No/not indicated 12/12/20 18:20 SARS-CoV-2 (PCR) Positive (NEGATIVE) A 12/03/20 12:18 Influenza Type A (PCR) Negative (NEGATIVE) 12/03/20 12:18 Influenza Type B (PCR) Negative (NEGATIVE) 12/03/20 12:18 RSV (PCR) Negative (NEGATIVE) 12/03/20 12:18 Plan (1) Pneumonia due to COVID-19 virus: Status: Acute Plan: Pneumonia protocol
[2020-12-16] MEDS: MELATONIN PO SCH (20:40)
[2020-12-16] MEDS: SNACK - Diabetic Appropriate PO SCH (20:40)
[2020-12-16] MEDS: LIPITOR TAB 80 MG PO SCH (20:40)
[2020-12-16] MEDS: K-DUR TAB 20 MEQ PO PRN (21:01)
[2020-12-17] MEDS: TESSALON PERLES PO SCH ×3 (05:05→21:00)
[2020-12-17 06:28] LABS: BASOPHILS % (AUTO) 0.2 % (0.2-1.0); EOSINOPHILS % (AUTO) 0.6 % (0.9-2.9); HEMATOCRIT 27.6 % (36.0-47.0); HEMOGLOBIN 9.5 g/dL (12.0-16.0); LYMPHOCYTES # (AUTO) 0.9 X10^3/uL (1.3-2.9); LYMPHOCYTES % (AUTO) 11.5 % (21.0-51.0); MEAN CORPUSCULAR HEMOGLOBIN 31.4 pg (27.0-34.0); MEAN CORPUSCULAR HGB CONC 34.4 g/dL (33.0-35.0); MEAN CORPUSCULAR VOLUME 91.3 fL (80.0-100.0); MEAN PLATELET VOLUME 12.4 fL (7.4-11.0); MONOCYTES % (AUTO) 13.2 % (0.0-13.0); NEUTROPHILS # (AUTO) 5.9 x10^3/uL (2.2-4.8); NEUTROPHILS % (AUTO) 74.5 % (42.0-75.0); PLATELET COUNT 107 X10^3/uL (150.0-450.0); RED BLOOD COUNT 3.02 X10^6/uL (3.5-5.4); RED CELL DISTRIBUTION WIDTH 13.9 % (11.6-16.5); WHITE BLOOD COUNT 7.9 X10^3/uL (3.6-10.0)
[2020-12-17 06:45] LABS: ALANINE AMINOTRANSFERASE 56 Units/L (12-78); ALBUMIN 2.3 g/dL (3.4-5.0); ALKALINE PHOSPHATASE 44 Units/L (46-116); ASPARTATE AMINO TRANSFERASE 172 Units/L (15-37); BLOOD UREA NITROGEN 11 mg/dL (7-18); CALCIUM 8.3 mg/dL (8.5-10.1); CHLORIDE 106 mmol/L (98-107); COR CA(FOR HYPOALB) 9.7 mg/dL (8.5-10.1); COR NA(FOR HYPERGLY) 142 mmol/L (136-145); CREATININE 0.62 mg/dL (0.55-1.02); SODIUM 142 mmol/L (136-145); TOTAL PROTEIN 5.7 g/dL (6.4-8.2); eGFR NON BLACK RACES > 60 (>60)
--- NOTE | 2020-12-17 08:11 | RAD ---
HISTORYPNEUMONIA F/USTUDYCHEST, 1 [id number] areas of opacity are present in the left and right lung. Consistent with bronchopneumonia. No change from yesterday.No pleural effusion or pneumothorax.Heart size is normal.Bones are unremarkable.Left subclavian central venous catheter is in the expected location of the superior vena cava. EKG leads are noted.IMPRESSION1. Unchanged bronchopneumoniaElectronically signed by: Cleveland Montes (Dec 17, 2020 08:10:01)
[2020-12-17] MEDS: BROVANA IN SCH ×2 (09:00→20:20)
[2020-12-17] MEDS: PULMICORT NEB TX 0.5 MG NEB SCH ×2 (09:00→20:20)
[2020-12-17] MEDS: LOVENOX INJ 30 MG SYR SC SCH (09:21)
[2020-12-17] MEDS: GLUCOPHAGE XR 24-HR PO SCH ×2 (09:23→21:00)
[2020-12-17] MEDS: INVOKANA PO SCH (09:23)
[2020-12-17] MEDS: ACTOS PO SCH (09:24)
[2020-12-17] MEDS: PEPCID TAB 40 MG PO SCH ×2 (09:24→21:00)
[2020-12-17] MEDS: LEVAQUIN TAB 750 MG PO SCH (09:25)
[2020-12-17] MEDS: K-DUR TAB 20 MEQ PO PRN (17:21)
[2020-12-17] MEDS: ZOFRAN INJ 4 MG VIAL IVP PRN (18:32)
[2020-12-17] MEDS: SNACK - Diabetic Appropriate PO SCH (20:00)
[2020-12-17] MEDS: MELATONIN PO SCH (21:00)
[2020-12-17] MEDS: HumuLIN R SC PRN (21:00)
[2020-12-17] MEDS: LIPITOR TAB 80 MG PO SCH (21:00)
[2020-12-18] MEDS: TESSALON PERLES PO SCH ×3 (06:07→21:21)
[2020-12-18 06:15] LABS: BASOPHILS % (AUTO) 0.2 % (0.2-1.0); EOSINOPHILS % (AUTO) 0.5 % (0.9-2.9); HEMATOCRIT 28.9 % (36.0-47.0); HEMOGLOBIN 9.9 g/dL (12.0-16.0); LYMPHOCYTES # (AUTO) 1.1 X10^3/uL (1.3-2.9); LYMPHOCYTES % (AUTO) 12.7 % (21.0-51.0); MEAN CORPUSCULAR HEMOGLOBIN 31.7 pg (27.0-34.0); MEAN CORPUSCULAR HGB CONC 34.1 g/dL (33.0-35.0); MEAN CORPUSCULAR VOLUME 93.1 fL (80.0-100.0); MONOCYTES # (AUTO) 1.3 x10^3/uL (0.3-0.8); MONOCYTES % (AUTO) 15.7 % (0.0-13.0); NEUTROPHILS # (AUTO) 5.9 x10^3/uL (2.2-4.8); NEUTROPHILS % (AUTO) 70.9 % (42.0-75.0); PLATELET COUNT 121 X10^3/uL (150.0-450.0); RED CELL DISTRIBUTION WIDTH 13.5 % (11.6-16.5); WHITE BLOOD COUNT 8.4 X10^3/uL (3.6-10.0)
[2020-12-18 06:29] LABS: ALANINE AMINOTRANSFERASE 78 Units/L (12-78); ALBUMIN 2.6 g/dL (3.4-5.0); ALKALINE PHOSPHATASE 51 Units/L (46-116); ASPARTATE AMINO TRANSFERASE 261 Units/L (15-37); BLOOD UREA NITROGEN 12 mg/dL (7-18); CALCIUM 8.6 mg/dL (8.5-10.1); CARBON DIOXIDE 29.4 mmol/L (21-32); CHLORIDE 105 mmol/L (98-107); COR CA(FOR HYPOALB) 9.7 mg/dL (8.5-10.1); COR NA(FOR HYPERGLY) 143 mmol/L (136-145); CREATININE 0.69 mg/dL (0.55-1.02); SODIUM 142 mmol/L (136-145); TOTAL PROTEIN 6.2 g/dL (6.4-8.2); eGFR NON BLACK RACES > 60 (>60)
--- NOTE | 2020-12-18 08:05 | RAD ---
HISTORYPNEUMONIA F/USTUDYCHEST, 1 [id number]/2021FINDINGSThe lungs are not as well inflated as on the prior study. Bilateral patchy areas of opacity are consistent with bronchopneumonia. There may be a slight improvement.But there is no significant pleural effusion or pneumothorax.Heart size is normal.Bones are unremarkable.Left subclavian central venous catheter is in the expected location of the superior vena cava. EKG leads are noted. Surgical clips are in the right axilla.IMPRESSION1. Decreased inflation2. Improved bronchopneumoniaElectronically signed by: Cleveland Montes (Dec 18, 2020 08:04:10)
[2020-12-18] MEDS: PULMICORT NEB TX 0.5 MG NEB SCH ×2 (08:30→21:20)
[2020-12-18] MEDS: BROVANA IN SCH ×2 (08:30→21:20)
[2020-12-18] MEDS: LOVENOX INJ 30 MG SYR SC SCH (09:25)
[2020-12-18] MEDS: INVOKANA PO SCH (09:25)
[2020-12-18] MEDS: LEVAQUIN TAB 750 MG PO SCH (09:25)
[2020-12-18] MEDS: GLUCOPHAGE XR 24-HR PO SCH ×2 (09:25→21:20)
[2020-12-18] MEDS: ACTOS PO SCH (09:25)
[2020-12-18] MEDS: PEPCID TAB 40 MG PO SCH ×2 (09:26→21:21)
[2020-12-18] MEDS: HumuLIN R SC PRN (11:48)
--- NOTE | 2020-12-18 18:12 | PCM.PROG ---
Progress Note Progress Note for Day of Date of Exam: 12/17/20 Subjective Subjective: Pt is a 65 year old female admitted for COVID-19 pneumonia with hypoxia. Pt is resting comfortably in bed this morning. No acute concerns overnight. Behavior and mental status appears back to baseline. She is still utilizing 3L nasal cannula supplemental oxygen. Labs/imaging: Wbc 7.9, Hgb 9.5, Plt 107, Na 142, K 3.4, Creatinine 0.62, Glucose 115. CXR: Patchy areas of opacity are present in the left and right lung. Consistent with bronchopneumonia. Continue treatment course that includes: Scheduled Bronchodilators, Lovenox 30mg BID, immune supporting supplements, supplemental O2, I/S, Respiratory therapy consult, Pneumonia protocol. gym manager working on fpc placement for additional physical therapy recommended by physical therapy. Wean/titrate oxygen as tolerated. Continue to monitor closely and follow up labs/imaging in the morning. Past Medical Family Social History Past Med/Fam/Surg Hx: No changes since H&P Allergies: Allergies No Known Drug Allergies Allergy (Verified 05/13/20 08:54) Review of Systems ROS: No change since H&P Vital Signs and I&O's Vital Signs: Temperature 98.4 F Pulse Rate [Left] 115 Pulse Rate 101 Respiratory Rate 20 Blood Pressure [Left Arm] 113/60 Blood Pressure [Right Arm] 109/65 Blood Pressure 137/63 O2 Sat by Pulse Oximetry 93 Intake and Output: Intake & Output 12/15/20 12/16/20 12/17/20 12/18/20 23:59 23:59 23:59 23:59 Intake Total 470 / 470 2140 / 2140 1300 / 1300 Balance 470 / 470 2140 / 2140 1299 / 1300 Physical Exam Oriented: Normal Eyes: Normal Ear: Normal Nose: Normal Throat: Normal Respiratory: Diminished and Rales Cardiovascular: Normal : Normal Auscultation: Bowel Sounds: Normal Tenderness: Normal Skin: Normal Musculoskeletal: Normal Psychiatric: Normal Mood Description: Calm Speech Pattern: Clear and Appropriate Laboratory and Diagnostics Result Diagrams: 12/18/20 05:30 12/18/20 05:30 Labs: 12/03/20 10:55 Blood Blood Culture - Final 12/03/20 10:50 Blood Blood Culture - Final 12/04/20 21:15 Sputum - Expectorated Sputum Sputum Culture - Final Pseudomonas Aeruginosa 12/04/20 21:15 Sputum - Expectorated Sputum - Final Laboratory WBC 8.4 X10^3/uL (3.6-10.0) 12/18/20 05:30 RBC 3.10 X10^6/uL (3.5-5.4) L 12/18/20 05:30 Hgb 9.9 g/dL (12.0-16.0) L 12/18/20 05:30 Hct 28.9 % (36.0-47.0) L 12/18/20 05:30 MCV 93.1 fL (80.0-100.0) 12/18/20 05:30 MCH 31.7 pg (27.0-34.0) 12/18/20 05:30 MCHC 34.1 g/dL (33.0-35.0) 12/18/20 05:30 RDW 13.5 % (11.6-16.5) 12/18/20 05:30 Plt Count 121 X10^3/uL (150.0-450.0) L 12/18/20 05:30 MPV 12.0 fL (7.4-11.0) H 12/18/20 05:30 Neut % (Auto) 70.9 % (42.0-75.0) 12/18/20 05:30 Lymph % (Auto) 12.7 % (21.0-51.0) L 12/18/20 05:30 [place] % (Auto) 15.7 % (0.0-13.0) H 12/18/20 05:30 Eos % (Auto) 0.5 % (0.9-2.9) L 12/18/20 05:30 Baso % (Auto) 0.2 % (0.2-1.0) 12/18/20 05:30 Neut # (Auto) 5.9 x10^3/uL (2.2-4.8) H 12/18/20 05:30 Lymph # (Auto) 1.1 X10^3/uL (1.3-2.9) L 12/18/20 05:30 [place] # (Auto) 1.3 x10^3/uL (0.3-0.8) H 12/18/20 05:30 Eos # (Auto) 0.0 x10^3/uL (0.0-0.2) 12/18/20 05:30 Baso # (Auto) 0.0 X10^3/uL (0.0-0.1) 12/18/20 05:30 Absolute Nucleated RBC 0.0 /100WBC 12/18/20 05:30 D-Dimer 0.39 ug/ml (0.0-0.57) 12/08/20 05:39 Sample Site Lr 12/08/20 04:35 ABG pH 7.400 (7.35-7.45) 12/08/20 04:35 ABG pCO2 35.0 mmHg (35.0-45.0) 12/08/20 04:35 ABG pO2 72.0 mmHg (80.0-100.0) L 12/08/20 04:35 ABG HCO3 21.7 mmol/L (22-26) L 12/08/20 04:35 ABG O2 Saturation 94.0 % (90-100) 12/08/20 04:35 ABG Base Excess -2.6 mmol/L (-2.0-2.0) L 12/08/20 04:35 Agusto Test Pos 12/08/20 04:35 A-a Gradient 512.0 mmHg 12/08/20 04:35 FiO2 88.0 12/08/20 04:35 Blood Gas Comments Rigo well ae 12/08/20 04:35 Sodium 142 mmol/L (136-145) 12/18/20 05:30 Corrected Sodium 143 mmol/L (136-145) 12/18/20 05:30 Potassium 3.5 mmol/L (3.5-5.1) 12/18/20 05:30 Chloride 105 mmol/L (98-107) 12/18/20 05:30 Carbon Dioxide 29.4 mmol/L (21-32) 12/18/20 05:30 BUN 12 mg/dL (7-18) 12/18/20 05:30 Creatinine 0.69 mg/dL (0.55-1.02) 12/18/20 05:30 Est GFR (MDRD) Af Amer > 60 (>60) 12/18/20 05:30 Est GFR (MDRD) Non-Af > 60 (>60) 12/18/20 05:30 Glucose 139 mg/dL (65-99) H 12/18/20 05:30 POC Glucose (mg/dL) 138 mg/dL (65-99) H 12/18/20 17:12 Lactic Acid 2.2 mmol/L (0.4-2.0) H 12/03/20 10:55 Calcium 8.6 mg/dL (8.5-10.1) 12/18/20 05:30 Corrected Calcium 9.7 mg/dL (8.5-10.1) 12/18/20 05:30 Magnesium 2.5 mg/dL (1.7-2.9) 12/13/20 10:35 Ferritin 1234 ng/mL (8-252) H 12/08/20 05:39 Total Bilirubin 0.80 mg/dL (0.2-1.0) 12/18/20 05:30 AST 261 Units/L (15-37) H 12/18/20 05:30 ALT 78 Units/L (12-78) 12/18/20 05:30 Alkaline Phosphatase 51 Units/L (46-116) 12/18/20 05:30 Creatine Kinase 955 Units/L (26-192) H 12/03/20 10:55 CK-MB (CK-2) < 1.0 ng/mL (0-4.0) 12/03/20 10:55 CK/CKMB % Calc 0.1 % (<4) 12/03/20 10:55 Troponin I < 0.02 ng/mL (0-1.5) 12/03/20 10:55 C-Reactive Protein 6.50 mg/L (0-3.0) H 12/08/20 05:39 B-Natriuretic Peptide 97.1 pg/mL (0-79) H 12/08/20 05:39 Total Protein 6.2 g/dL (6.4-8.2) L 12/18/20 05:30 Albumin 2.6 g/dL (3.4-5.0) L 12/18/20 05:30 Globulin 3.6 g/dL (2.5-4.5) 12/18/20 05:30 Albumin/Globulin Ratio 0.7 Ratio (1.1-2.1) L 12/18/20 05:30 Specimen Type Catherized urine 12/12/20 18:20 Urine Color Yellow (YELLOW) 12/12/20 18:20 Urine Appearance Clear (CLEAR) 12/12/20 18:20 Urine pH 6.0 (5.0 - 8.0) 12/12/20 18:20 Ur Specific [place] 1.015 (1.000-1.030) 12/12/20 18:20 Urine Protein 1+ (NEGATIVE) 12/12/20 18:20 Urine Glucose (UA) 4+ (NEGATIVE) 12/12/20 18:20 Urine Ketones 4+ (NEGATIVE) 12/12/20 18:20 Urine Occult Blood 1+ (NEGATIVE) 12/12/20 18:20 Urine Nitrite Negative (NEGATIVE) 12/12/20 18:20 Urine Bilirubin Negative (NEGATIVE) 12/12/20 18:20 Urine Urobilinogen Normal (NORMAL) 12/12/20 18:20 Ur Leukocyte Esterase Negative (NEGATIVE) 12/12/20 18:20 Urine RBC 3-5 /HPF (0-3) A 12/12/20 18:20 Urine WBC 0-2 /HPF (0-5) 12/12/20 18:20 Ur Squamous Epith Cells Few /HPF (NEGATIVE) 12/12/20 18:20 Urine Bacteria Trace /HPF (NEGATIVE) 12/12/20 18:20 Urine Yeast Numerous /HPF (NEGATIVE) 12/12/20 18:20 Ur Culture Indicated? No/not indicated 12/12/20 18:20 SARS-CoV-2 (PCR) Positive (NEGATIVE) A 12/03/20 12:18 Influenza Type A (PCR) Negative (NEGATIVE) 12/03/20 12:18 Influenza Type B (PCR) Negative (NEGATIVE) 12/03/20 12:18 RSV (PCR) Negative (NEGATIVE) 12/03/20 12:18 Plan (1) Pneumonia due to COVID-19 virus: Status: Acute Plan: Pneumonia protocol
--- NOTE | 2020-12-18 18:30 | PCM.PROG ---
Progress Note Progress Note for Day of Date of Exam: 12/18/20 Subjective Subjective: Pt is a 65 year old female admitted for COVID-19 pneumonia with hypoxia. Pt is upset this morning with her daughter that she says is not moving fast enough to get her physical therapy. Otherwise no significant changes from yesterday. No acute concerns overnight. Behavior and mental status appears back to baseline. She is utilizing 3L nasal cannula supplemental oxygen. Labs/imaging: Wbc 8.4, Hgb 9.9, Plt 121, Na 142, K 3.5, Creatinine 0.69, Glucose 139. CXR: Bilateral patchy areas of opacity are consistent with bronchopneumonia. There may be a slight improvement. Continue treatment course that includes: Scheduled Bronchodilators, Lovenox 30mg BID, immune supporting supplements, supplemental O2, I/S, Respiratory therapy consult, Pneumonia protocol. clinical study manager will continue working on halfway placement for additional physical therapy recommended by physical therapy. Wean/titrate oxygen as tolerated. Continue to monitor closely and follow up labs/imaging in the morning. Past Medical Family Social History Past Med/Fam/Surg Hx: No changes since H&P Allergies: Allergies No Known Drug Allergies Allergy (Verified 05/13/20 08:54) Review of Systems ROS: No change since H&P Vital Signs and I&O's Vital Signs: Temperature 98.4 F Pulse Rate [Left] 115 Pulse Rate 101 Respiratory Rate 20 Blood Pressure [Left Arm] 113/60 Blood Pressure [Right Arm] 109/65 Blood Pressure 137/63 O2 Sat by Pulse Oximetry 93 Intake and Output: Intake & Output 12/15/20 12/16/20 12/17/20 12/18/20 23:59 23:59 23:59 23:59 Intake Total 470 / 470 2140 / 2140 1300 / 1300 430 / 430 Balance 470 / 470 2140 / 2140 1300 / 1300 430 / 430 Physical Exam Oriented: Normal Eyes: Normal Ear: Normal Nose: Normal Throat: Normal Respiratory: Diminished and [place]ales Cardiovascular: Normal : Normal Auscultation: Bowel Sounds: Normal Tenderness: Normal Skin: Normal Musculoskeletal: Normal Psychiatric: Normal Mood Description: Calm Speech Pattern: Clear and Appropriate Laboratory and Diagnostics Result Diagrams: 12/18/20 05:30 12/18/20 05:30 Labs: 12/03/20 10:55 Blood Blood Culture - Final 12/03/20 10:50 Blood Blood Culture - Final 12/04/20 21:15 Sputum - Expectorated Sputum Sputum Culture - Final Pseudomonas Aeruginosa 12/04/20 21:15 Sputum - Expectorated Sputum - Final Laboratory WBC 8.4 X10^3/uL (3.6-10.0) 12/18/20 05:30 RBC 3.10 X10^6/uL (3.5-5.4) L 12/18/20 05:30 Hgb 9.9 g/dL (12.0-16.0) L 12/18/20 05:30 Hct 28.9 % (36.0-47.0) L 12/18/20 05:30 MCV 93.1 fL (80.0-100.0) 12/18/20 05:30 MCH 31.7 pg (27.0-34.0) 12/18/20 05:30 MCHC 34.1 g/dL (33.0-35.0) 12/18/20 05:30 RDW 13.5 % (11.6-16.5) 12/18/20 05:30 Plt Count 121 X10^3/uL (150.0-450.0) L 12/18/20 05:30 MPV 12.0 fL (7.4-11.0) H 12/18/20 05:30 Neut % (Auto) 70.9 % (42.0-75.0) 12/18/20 05:30 Lymph % (Auto) 12.7 % (21.0-51.0) L 12/18/20 05:30 [place] % (Auto) 15.7 % (0.0-13.0) H 12/18/20 05:30 Eos % (Auto) 0.5 % (0.9-2.9) L 12/18/20 05:30 Baso % (Auto) 0.2 % (0.2-1.0) 12/18/20 05:30 Neut # (Auto) 5.9 x10^3/uL (2.2-4.8) H 12/18/20 05:30 Lymph # (Auto) 1.1 X10^3/uL (1.3-2.9) L 12/18/20 05:30 [place] # (Auto) 1.3 x10^3/uL (0.3-0.8) H 12/18/20 05:30 Eos # (Auto) 0.0 x10^3/uL (0.0-0.2) 12/18/20 05:30 Baso # (Auto) 0.0 X10^3/uL (0.0-0.1) 12/18/20 05:30 Absolute Nucleated RBC 0.0 /100WBC 12/18/20 05:30 D-Dimer 0.39 ug/ml (0.0-0.57) 12/08/20 05:39 Sample Site Lr 12/08/20 04:35 ABG pH 7.400 (7.35-7.45) 12/08/20 04:35 ABG pCO2 35.0 mmHg (35.0-45.0) 12/08/20 04:35 ABG pO2 72.0 mmHg (80.0-100.0) L 12/08/20 04:35 ABG HCO3 21.7 mmol/L (22-26) L 12/08/20 04:35 ABG O2 Saturation 94.0 % (90-100) 12/08/20 04:35 ABG Base Excess -2.6 mmol/L (-2.0-2.0) L 12/08/20 04:35 Agusto Test Pos 12/08/20 04:35 A-a Gradient 512.0 mmHg 12/08/20 04:35 FiO2 88.0 12/08/20 04:35 Blood Gas Comments Rigo well ae 12/08/20 04:35 Sodium 142 mmol/L (136-145) 12/18/20 05:30 Corrected Sodium 143 mmol/L (136-145) 12/18/20 05:30 Potassium 3.5 mmol/L (3.5-5.1) 12/18/20 05:30 Chloride 105 mmol/L (98-107) 12/18/20 05:30 Carbon Dioxide 29.4 mmol/L (21-32) 12/18/20 05:30 BUN 12 mg/dL (7-18) 12/18/20 05:30 Creatinine 0.69 mg/dL (0.55-1.02) 12/18/20 05:30 Est GFR (MDRD) Af Amer > 60 (>60) 12/18/20 05:30 Est GFR (MDRD) Non-Af > 60 (>60) 12/18/20 05:30 Glucose 139 mg/dL (65-99) H 12/18/20 05:30 POC Glucose (mg/dL) 138 mg/dL (65-99) H 12/18/20 17:12 Lactic Acid 2.2 mmol/L (0.4-2.0) H 12/03/20 10:55 Calcium 8.6 mg/dL (8.5-10.1) 12/18/20 05:30 Corrected Calcium 9.7 mg/dL (8.5-10.1) 12/18/20 05:30 Magnesium 2.5 mg/dL (1.7-2.9) 12/13/20 10:35 Ferritin 1234 ng/mL (8-252) H 12/08/20 05:39 Total Bilirubin 0.80 mg/dL (0.2-1.0) 12/18/20 05:30 AST 261 Units/L (15-37) H 12/18/20 05:30 ALT 78 Units/L (12-78) 12/18/20 05:30 Alkaline Phosphatase 51 Units/L (46-116) 12/18/20 05:30 Creatine Kinase 955 Units/L (26-192) H 12/03/20 10:55 CK-MB (CK-2) < 1.0 ng/mL (0-4.0) 12/03/20 10:55 CK/CKMB % Calc 0.1 % (<4) 12/03/20 10:55 Troponin I < 0.02 ng/mL (0-1.5) 12/03/20 10:55 C-Reactive Protein 6.50 mg/L (0-3.0) H 12/08/20 05:39 B-Natriuretic Peptide 97.1 pg/mL (0-79) H 12/08/20 05:39 Total Protein 6.2 g/dL (6.4-8.2) L 12/18/20 05:30 Albumin 2.6 g/dL (3.4-5.0) L 12/18/20 05:30 Globulin 3.6 g/dL (2.5-4.5) 12/18/20 05:30 Albumin/Globulin Ratio 0.7 Ratio (1.1-2.1) L 12/18/20 05:30 Specimen Type Catherized urine 12/12/20 18:20 Urine Color Yellow (YELLOW) 12/12/20 18:20 Urine Appearance Clear (CLEAR) 12/12/20 18:20 Urine pH 6.0 (5.0 - 8.0) 12/12/20 18:20 Ur Specific [place] 1.015 (1.000-1.030) 12/12/20 18:20 Urine Protein 1+ (NEGATIVE) 12/12/20 18:20 Urine Glucose (UA) 4+ (NEGATIVE) 12/12/20 18:20 Urine Ketones 4+ (NEGATIVE) 12/12/20 18:20 Urine Occult Blood 1+ (NEGATIVE) 12/12/20 18:20 Urine Nitrite Negative (NEGATIVE) 12/12/20 18:20 Urine Bilirubin Negative (NEGATIVE) 12/12/20 18:20 Urine Urobilinogen Normal (NORMAL) 12/12/20 18:20 Ur Leukocyte Esterase Negative (NEGATIVE) 12/12/20 18:20 Urine RBC 3-5 /HPF (0-3) A 12/12/20 18:20 Urine WBC 0-2 /HPF (0-5) 12/12/20 18:20 Ur Squamous Epith Cells Few /HPF (NEGATIVE) 12/12/20 18:20 Urine Bacteria Trace /HPF (NEGATIVE) 12/12/20 18:20 Urine Yeast Numerous /HPF (NEGATIVE) 12/12/20 18:20 Ur Culture Indicated? No/not indicated 12/12/20 18:20 SARS-CoV-2 (PCR) Positive (NEGATIVE) A 12/03/20 12:18 Influenza Type A (PCR) Negative (NEGATIVE) 12/03/20 12:18 Influenza Type B (PCR) Negative (NEGATIVE) 12/03/20 12:18 RSV (PCR) Negative (NEGATIVE) 12/03/20 12:18 Plan (1) Pneumonia due to COVID-19 virus: Status: Acute Plan: Pneumonia protocol
[2020-12-18] MEDS: SNACK - Diabetic Appropriate PO SCH (21:20)
[2020-12-18] MEDS: LIPITOR TAB 80 MG PO SCH (21:20)
[2020-12-18] MEDS: MELATONIN PO SCH (21:21)
[2020-12-19] MEDS: TYLENOL 325 MG TAB PO PRN (01:16)
[2020-12-19 04:15] LABS: CRYPTOSPORIDIUM PARVUM ANTIGEN NEGATIVE (NEGATIVE); GIARDIA LAMBLIA ANTIGEN NEGATIVE (NEGATIVE)
[2020-12-19] MEDS: TESSALON PERLES PO SCH ×3 (05:26→21:49)
[2020-12-19 06:13] LABS: BASOPHILS % (AUTO) 0.4 % (0.2-1.0); EOSINOPHILS % (AUTO) 0.5 % (0.9-2.9); HEMATOCRIT 27.5 % (36.0-47.0); HEMOGLOBIN 9.3 g/dL (12.0-16.0); LYMPHOCYTES # (AUTO) 1.2 X10^3/uL (1.3-2.9); LYMPHOCYTES % (AUTO) 14.9 % (21.0-51.0); MEAN CORPUSCULAR HEMOGLOBIN 31.5 pg (27.0-34.0); MEAN CORPUSCULAR HGB CONC 33.8 g/dL (33.0-35.0); MEAN CORPUSCULAR VOLUME 93.2 fL (80.0-100.0); MEAN PLATELET VOLUME 12.3 fL (7.4-11.0); MONOCYTES # (AUTO) 1.2 x10^3/uL (0.3-0.8); MONOCYTES % (AUTO) 15.6 % (0.0-13.0); NEUTROPHILS # (AUTO) 5.5 x10^3/uL (2.2-4.8); NEUTROPHILS % (AUTO) 68.6 % (42.0-75.0); PLATELET COUNT 115 X10^3/uL (150.0-450.0); RED BLOOD COUNT 2.95 X10^6/uL (3.5-5.4); RED CELL DISTRIBUTION WIDTH 13.6 % (11.6-16.5)
[2020-12-19 06:38] LABS: ALANINE AMINOTRANSFERASE 108 Units/L (12-78); ALBUMIN 2.5 g/dL (3.4-5.0); ALKALINE PHOSPHATASE 52 Units/L (46-116); ASPARTATE AMINO TRANSFERASE 338 Units/L (15-37); BLOOD UREA NITROGEN 13 mg/dL (7-18); CALCIUM 8.4 mg/dL (8.5-10.1); CARBON DIOXIDE 29.3 mmol/L (21-32); CHLORIDE 104 mmol/L (98-107); COR CA(FOR HYPOALB) 9.6 mg/dL (8.5-10.1); COR NA(FOR HYPERGLY) 140 mmol/L (136-145); CREATININE 0.64 mg/dL (0.55-1.02); SODIUM 140 mmol/L (136-145); TOTAL PROTEIN 5.9 g/dL (6.4-8.2); eGFR NON BLACK RACES > 60 (>60)
--- NOTE | 2020-12-19 07:50 | RAD ---
HISTORYFollow up pneumoniaSTUDYPortable AP [id number]/10/2021FINDINGSHeart size remains normal. There is no change in degree or distribution of bilateral airspace disease. No complicating pneumothorax or pleural fluid is seen. Similar position of left subclavian line.IMPRESSIONNo change.Electronically signed by: ARNALDO STROUD (Dec 19, 2020 07:47:43)
[2020-12-19] MEDS: ACTOS PO SCH (09:00)
[2020-12-19] MEDS: INVOKANA PO SCH (09:00)
[2020-12-19] MEDS: PULMICORT NEB TX 0.5 MG NEB SCH ×2 (09:58→20:39)
[2020-12-19] MEDS: BROVANA IN SCH ×2 (09:58→20:39)
[2020-12-19] MEDS: LOVENOX INJ 30 MG SYR SC SCH (09:59)
[2020-12-19] MEDS: LEVAQUIN TAB 750 MG PO SCH (10:00)
[2020-12-19] MEDS: PEPCID TAB 40 MG PO SCH ×2 (10:00→21:49)
[2020-12-19] MEDS: GLUCOPHAGE XR 24-HR PO SCH ×2 (10:00→21:48)
[2020-12-19] MEDS ORDERED: POTASSIUM CHL 60 MEQ/NS 0.45% 500 ML IV PRN (13:21)
[2020-12-19] MEDS ORDERED: POTASSIUM CHL 40 MEQ/NS 0.45% 500 ML IV PRN (13:21)
[2020-12-19] MEDS ORDERED: MAGNESIUM SULFATE 1 GRAM/100 mL PREMIX 1 GM/100 ML BAG IV PRN (13:21)
[2020-12-19] MEDS ORDERED: POTASSIUM CHLORIDE LIQ 20 MEQ UDC PO PRN (13:21)
[2020-12-19] MEDS ORDERED: K-DUR TAB 20 MEQ PO PRN (13:21)
[2020-12-19] MEDS ORDERED: KLOR-CON PO PRN (13:21)
[2020-12-19] MEDS ORDERED: MICRO K EXTEN CAP 10 MEQ PO PRN (13:21)
[2020-12-19] MEDS ORDERED: K-RIDER 10 MEQ/NS 100 ML 10 MEQ/100 ML BAG IV PRN (13:21)
[2020-12-19] MEDS: KLOR-CON PO PRN (14:40)
[2020-12-19] MEDS ORDERED: TOPROL XL PO ONE (21:48)
[2020-12-19] MEDS: MELATONIN PO SCH (21:48)
[2020-12-19] MEDS: LIPITOR TAB 80 MG PO SCH (21:49)
[2020-12-19] MEDS: TOPROL XL PO SCH (21:49)
[2020-12-19] MEDS ORDERED: LOPRESSOR TAB 50 MG PO SCH (22:00)
[2020-12-19] MEDS: SNACK - Diabetic Appropriate PO SCH (22:39)
[2020-12-20] MEDS: ZOFRAN INJ 4 MG VIAL IVP PRN (01:11)
[2020-12-20] MEDS: TESSALON PERLES PO SCH ×3 (05:32→21:15)
[2020-12-20 06:19] LABS: ABG BASE EXCESS 6.6 mmol/L (-2.0-2.0)
[2020-12-20 06:20] LABS: ABG HCO3 31.3 mmol/L (22-26)
[2020-12-20 06:21] LABS: ABG ALLEN TEST POSS
[2020-12-20 06:40] LABS: BASOPHILS % (AUTO) 0.5 % (0.2-1.0); EOSINOPHILS % (AUTO) 0.5 % (0.9-2.9); HEMATOCRIT 28.4 % (36.0-47.0); HEMOGLOBIN 9.6 g/dL (12.0-16.0); LYMPHOCYTES # (AUTO) 1.3 X10^3/uL (1.3-2.9); LYMPHOCYTES % (AUTO) 15.9 % (21.0-51.0); MEAN CORPUSCULAR HEMOGLOBIN 31.8 pg (27.0-34.0); MEAN CORPUSCULAR VOLUME 93.6 fL (80.0-100.0); MEAN PLATELET VOLUME 11.3 fL (7.4-11.0); MONOCYTES # (AUTO) 1.5 x10^3/uL (0.3-0.8); MONOCYTES % (AUTO) 18.4 % (0.0-13.0); NEUTROPHILS # (AUTO) 5.2 x10^3/uL (2.2-4.8); NEUTROPHILS % (AUTO) 64.7 % (42.0-75.0); PLATELET COUNT 134 X10^3/uL (150.0-450.0); RED BLOOD COUNT 3.03 X10^6/uL (3.5-5.4); RED CELL DISTRIBUTION WIDTH 13.5 % (11.6-16.5)
[2020-12-20 06:52] LABS: ALANINE AMINOTRANSFERASE 127 Units/L (12-78); ALBUMIN 2.6 g/dL (3.4-5.0); ALKALINE PHOSPHATASE 52 Units/L (46-116); ASPARTATE AMINO TRANSFERASE 278 Units/L (15-37); BLOOD UREA NITROGEN 12 mg/dL (7-18); CALCIUM 8.6 mg/dL (8.5-10.1); CARBON DIOXIDE 30.3 mmol/L (21-32); CHLORIDE 104 mmol/L (98-107); COR CA(FOR HYPOALB) 9.7 mg/dL (8.5-10.1); COR NA(FOR HYPERGLY) 142 mmol/L (136-145); CREATININE 0.68 mg/dL (0.55-1.02); SODIUM 141 mmol/L (136-145); TOTAL PROTEIN 6.3 g/dL (6.4-8.2); eGFR NON BLACK RACES > 60 (>60)
--- NOTE | 2020-12-20 08:04 | RAD ---
HISTORYFollow up pneumoniaSTUDYPortable AP [id number]/11/2021FINDINGSThere is no change in appearance of heart or lungs considering mild expiratory technique. Similar appearance of bilateral pulmonary infiltrates. No change in position of central line. There is no evidence for pleural fluid or pneumothorax.IMPRESSIONNo significant change in appearance of bilateral pneumonia.Electronically signed by: ARNALDO STROUD (Dec 20, 2020 08:02:31)
[2020-12-20] MEDS: GLUCOPHAGE XR 24-HR PO SCH ×2 (08:59→21:17)
[2020-12-20] MEDS: INVOKANA PO SCH (08:59)
[2020-12-20] MEDS: ACTOS PO SCH (09:00)
[2020-12-20] MEDS: LEVAQUIN TAB 750 MG PO SCH (09:00)
[2020-12-20] MEDS: LOVENOX INJ 30 MG SYR SC SCH (09:01)
[2020-12-20] MEDS: PEPCID TAB 40 MG PO SCH ×2 (09:02→21:15)
[2020-12-20] MEDS: TOPROL XL PO SCH (09:02)
[2020-12-20] MEDS: BROVANA IN SCH ×2 (09:25→21:24)
[2020-12-20] MEDS: PULMICORT NEB TX 0.5 MG NEB SCH ×2 (09:25→21:25)
[2020-12-20] MEDS: TYLENOL 325 MG TAB PO PRN (18:51)
[2020-12-20] MEDS: SNACK - Diabetic Appropriate PO SCH (21:15)
[2020-12-20] MEDS: MELATONIN PO SCH (21:16)
[2020-12-20] MEDS: LIPITOR TAB 80 MG PO SCH (21:17)
[2020-12-21] MEDS: TESSALON PERLES PO SCH ×3 (06:13→21:07)
[2020-12-21 06:17] LABS: BASOPHILS # (AUTO) 0.1 X10^3/uL (0.0-0.1); BASOPHILS % (AUTO) 0.9 % (0.2-1.0); EOSINOPHILS # (AUTO) 0.1 x10^3/uL (0.0-0.2); EOSINOPHILS % (AUTO) 0.7 % (0.9-2.9); HEMATOCRIT 28.4 % (36.0-47.0); HEMOGLOBIN 9.7 g/dL (12.0-16.0); LYMPHOCYTES # (AUTO) 1.3 X10^3/uL (1.3-2.9); LYMPHOCYTES % (AUTO) 17.7 % (21.0-51.0); MEAN CORPUSCULAR HEMOGLOBIN 32.2 pg (27.0-34.0); MEAN CORPUSCULAR HGB CONC 34.2 g/dL (33.0-35.0); MEAN CORPUSCULAR VOLUME 94.1 fL (80.0-100.0); MEAN PLATELET VOLUME 10.7 fL (7.4-11.0); MONOCYTES # (AUTO) 1.4 x10^3/uL (0.3-0.8); MONOCYTES % (AUTO) 18.1 % (0.0-13.0); NEUTROPHILS # (AUTO) 4.7 x10^3/uL (2.2-4.8); NEUTROPHILS % (AUTO) 62.6 % (42.0-75.0); PLATELET COUNT 128 X10^3/uL (150.0-450.0); RED BLOOD COUNT 3.02 X10^6/uL (3.5-5.4); RED CELL DISTRIBUTION WIDTH 13.9 % (11.6-16.5); WHITE BLOOD COUNT 7.5 X10^3/uL (3.6-10.0)
[2020-12-21 06:18] LABS: ALANINE AMINOTRANSFERASE 121 Units/L (12-78); ALBUMIN 2.7 g/dL (3.4-5.0); ALKALINE PHOSPHATASE 51 Units/L (46-116); ASPARTATE AMINO TRANSFERASE 187 Units/L (15-37); BLOOD UREA NITROGEN 11 mg/dL (7-18); CALCIUM 8.8 mg/dL (8.5-10.1); CARBON DIOXIDE 30.9 mmol/L (21-32); CHLORIDE 103 mmol/L (98-107); COR CA(FOR HYPOALB) 9.8 mg/dL (8.5-10.1); COR NA(FOR HYPERGLY) 141 mmol/L (136-145); CREATININE 0.65 mg/dL (0.55-1.02); SODIUM 140 mmol/L (136-145); TOTAL PROTEIN 6.2 g/dL (6.4-8.2); eGFR NON BLACK RACES > 60 (>60)
--- NOTE | 2020-12-21 07:50 | RAD ---
HISTORYSOBSTUDYPortable AP [id number]/12/2021FINDINGSContinued normal heart size and contour. Bilateral pulmonary infiltr ates again noted, unchanged in the left lung and slightly improved in the right lung. No new abnormal ity is noted. Stable position of central line. No pneumothorax or pleural fluid demonstrated.IMPRESSI ONPersistent bilateral pneumonia with slight interval improvement in the right lung.Electronically si gned by: ARNALDO STROUD (Dec 21, 2020 07:48:05)
[2020-12-21] MEDS: LOVENOX INJ 30 MG SYR SC SCH (08:19)
[2020-12-21] MEDS: PEPCID TAB 40 MG PO SCH ×2 (08:19→21:07)
[2020-12-21] MEDS: GLUCOPHAGE XR 24-HR PO SCH ×2 (08:20→21:06)
[2020-12-21] MEDS: ACTOS PO SCH (08:20)
[2020-12-21] MEDS: INVOKANA PO SCH (08:20)
[2020-12-21] MEDS: LEVAQUIN TAB 750 MG PO SCH (08:20)
[2020-12-21] MEDS: TOPROL XL PO SCH (08:20)
[2020-12-21] MEDS: PULMICORT NEB TX 0.5 MG NEB SCH ×2 (08:55→21:00)
[2020-12-21] MEDS: BROVANA IN SCH ×2 (08:56→21:00)
[2020-12-21] MEDS: HumuLIN R SC PRN ×2 (11:16→17:16)
--- NOTE | 2020-12-21 13:20 | PCM.PROG ---
Progress Note Progress Note for Day of Date of Exam: 12/21/20 Subjective Subjective: Pt is a 65 year old female admitted for COVID-19 pneumonia with hypoxia. Pt continues to have lower extremity weakness. She states she wants to do physical therapy but has not made much effort moving her legs. She is currently utilizing 4L nasal cannula supplemental oxygen. Labs/imaging: Wbc 7.5, Hgb 9.7, Plt 128, Na 140, K 3.7, Creatinine 0.65, Glucose 153. CXR: Persistent bilateral pneumonia with slight interval improvement in the right lung. Continue treatment course that includes: Scheduled Bronchodilators, Lovenox 30mg BID, immune supporting supplements, supplemental O2, I/S, Respiratory therapy consult, Pneumonia protocol. [employer] life insurance will continue working on longterm placement for additional physical therapy recommended by physical therapy. Wean/titrate oxygen as tolerated. Continue to monitor closely and follow up labs/imaging in the morning. Past Medical Family Social History Past Med/Fam/Surg Hx: No changes since H&P Allergies: Allergies No Known Drug Allergies Allergy (Verified 05/13/20 08:54) Review of Systems ROS: No change since H&P Vital Signs and I&O's Vital Signs: Temperature 99.2 F Pulse Rate [Left] 110 Pulse Rate 106 Respiratory Rate 20 Blood Pressure [Left Arm] 97/56 Blood Pressure [Right Arm] 119/69 Blood Pressure 137/63 O2 Sat by Pulse Oximetry 92 Intake and Output: Intake & Output 12/18/20 12/19/20 12/20/20 12/21/20 23:59 23:59 23:59 23:59 Intake Total 670 / 670 880 / 880 775 / 775 670 / 670 Balance 670 / 670 880 / 880 775 / 775 670 / 670 Physical Exam Oriented: Normal Eyes: Normal Ear: Normal Nose: Normal Throat: Normal Respiratory: Diminished and Rales Cardiovascular: Normal : Normal Auscultation: Bowel Sounds: Normal Tenderness: Normal Skin: Normal Musculoskeletal: Leg (weakness bilateral lower extremities) Psychiatric: Normal Mood Description: Calm Speech Pattern: Clear and Appropriate Laboratory and Diagnostics Result Diagrams: 12/21/20 05:36 12/21/20 05:36 Labs: 12/19/20 00:10 Stool Stool Culture - Preliminary 12/19/20 00:10 Stool - Final 12/03/20 10:55 Blood Blood Culture - Final 12/03/20 10:50 Blood Blood Culture - Final 12/04/20 21:15 Sputum - Expectorated Sputum Sputum Culture - Final Pseudomonas Aeruginosa 12/04/20 21:15 Sputum - Expectorated Sputum - Final Laboratory WBC 7.5 X10^3/uL (3.6-10.0) 12/21/20 05:36 RBC 3.02 X10^6/uL (3.5-5.4) L 12/21/20 05:36 Hgb 9.7 g/dL (12.0-16.0) L 12/21/20 05:36 Hct 28.4 % (36.0-47.0) L 12/21/20 05:36 MCV 94.1 fL (80.0-100.0) 12/21/20 05:36 MCH 32.2 pg (27.0-34.0) 12/21/20 05:36 MCHC 34.2 g/dL (33.0-35.0) 12/21/20 05:36 RDW 13.9 % (11.6-16.5) 12/21/20 05:36 Plt Count 128 X10^3/uL (150.0-450.0) L 12/21/20 05:36 MPV 10.7 fL (7.4-11.0) 12/21/20 05:36 Neut % (Auto) 62.6 % (42.0-75.0) 12/21/20 05:36 Lymph % (Auto) 17.7 % (21.0-51.0) L 12/21/20 05:36 [place] % (Auto) 18.1 % (0.0-13.0) H 12/21/20 05:36 Eos % (Auto) 0.7 % (0.9-2.9) L 12/21/20 05:36 Baso % (Auto) 0.9 % (0.2-1.0) 12/21/20 05:36 Neut # (Auto) 4.7 x10^3/uL (2.2-4.8) 12/21/20 05:36 Lymph # (Auto) 1.3 X10^3/uL (1.3-2.9) 12/21/20 05:36 [place] # (Auto) 1.4 x10^3/uL (0.3-0.8) H 12/21/20 05:36 Eos # (Auto) 0.1 x10^3/uL (0.0-0.2) 12/21/20 05:36 Baso # (Auto) 0.1 X10^3/uL (0.0-0.1) 12/21/20 05:36 Absolute Nucleated RBC 0.1 /100WBC 12/21/20 05:36 D-Dimer 0.39 ug/ml (0.0-0.57) 12/08/20 05:39 Sample Site R rad 12/20/20 03:42 ABG pH 7.460 (7.35-7.45) H 12/20/20 03:42 ABG pCO2 44.0 mmHg (35.0-45.0) 12/20/20 03:42 ABG pO2 58.0 mmHg (80.0-100.0) L 12/20/20 03:42 ABG HCO3 31.3 mmol/L (22-26) H* 12/20/20 03:42 ABG O2 Saturation 91.0 % (90-100) 12/20/20 03:42 ABG Base Excess 6.6 mmol/L (-2.0-2.0) H 12/20/20 03:42 Agusto Test Poss 12/20/20 03:42 A-a Gradient 115.0 mmHg 12/20/20 03:42 FiO2 32.0 12/20/20 03:42 Blood Gas Comments [place]igo well kb 12/20/20 03:42 Sodium 140 mmol/L (136-145) 12/21/20 05:36 Corrected Sodium 141 mmol/L (136-145) 12/21/20 05:36 Potassium 3.7 mmol/L (3.5-5.1) 12/21/20 05:36 Chloride 103 mmol/L (98-107) 12/21/20 05:36 Carbon Dioxide 30.9 mmol/L (21-32) 12/21/20 05:36 BUN 11 mg/dL (7-18) 12/21/20 05:36 Creatinine 0.65 mg/dL (0.55-1.02) 12/21/20 05:36 Est GFR (MDRD) Af Amer > 60 (>60) 12/21/20 05:36 Est GFR (MDRD) Non-Af > 60 (>60) 12/21/20 05:36 Glucose 153 mg/dL (65-99) H 12/21/20 05:36 POC Glucose (mg/dL) 185 mg/dL (65-99) H 12/21/20 11:07 Lactic Acid 2.2 mmol/L (0.4-2.0) H 12/03/20 10:55 Calcium 8.8 mg/dL (8.5-10.1) 12/21/20 05:36 Corrected Calcium 9.8 mg/dL (8.5-10.1) 12/21/20 05:36 Magnesium 1.9 mg/dL (1.7-2.9) 12/19/20 05:06 Ferritin 1234 ng/mL (8-252) H 12/08/20 05:39 Total Bilirubin 0.90 mg/dL (0.2-1.0) 12/21/20 05:36 AST 187 Units/L (15-37) H 12/21/20 05:36 ALT 121 Units/L (12-78) H 12/21/20 05:36 Alkaline Phosphatase 51 Units/L (46-116) 12/21/20 05:36 Creatine Kinase 955 Units/L (26-192) H 12/03/20 10:55 CK-MB (CK-2) < 1.0 ng/mL (0-4.0) 12/03/20 10:55 CK/CKMB % Calc 0.1 % (<4) 12/03/20 10:55 Troponin I < 0.02 ng/mL (0-1.5) 12/03/20 10:55 C-Reactive Protein 6.50 mg/L (0-3.0) H 12/08/20 05:39 B-Natriuretic Peptide 97.1 pg/mL (0-79) H 12/08/20 05:39 Total Protein 6.2 g/dL (6.4-8.2) L 12/21/20 05:36 Albumin 2.7 g/dL (3.4-5.0) L 12/21/20 05:36 Globulin 3.5 g/dL (2.5-4.5) 12/21/20 05:36 Albumin/Globulin Ratio 0.8 Ratio (1.1-2.1) L 12/21/20 05:36 Specimen Type Catherized urine 12/12/20 18:20 Urine Color Yellow (YELLOW) 12/12/20 18:20 Urine Appearance Clear (CLEAR) 12/12/20 18:20 Urine pH 6.0 (5.0 - 8.0) 12/12/20 18:20 Ur Specific [place] 1.015 (1.000-1.030) 12/12/20 18:20 Urine Protein 1+ (NEGATIVE) 12/12/20 18:20 Urine Glucose (UA) 4+ (NEGATIVE) 12/12/20 18:20 Urine Ketones 4+ (NEGATIVE) 12/12/20 18:20 Urine Occult Blood 1+ (NEGATIVE) 12/12/20 18:20 Urine Nitrite Negative (NEGATIVE) 12/12/20 18:20 Urine Bilirubin Negative (NEGATIVE) 12/12/20 18:20 Urine Urobilinogen Normal (NORMAL) 12/12/20 18:20 Ur Leukocyte Esterase Negative (NEGATIVE) 12/12/20 18:20 Urine RBC 3-5 /HPF (0-3) A 12/12/20 18:20 Urine WBC 0-2 /HPF (0-5) 12/12/20 18:20 Ur Squamous Epith Cells Few /HPF (NEGATIVE) 12/12/20 18:20 Urine Bacteria Trace /HPF (NEGATIVE) 12/12/20 18:20 Urine Yeast Numerous /HPF (NEGATIVE) 12/12/20 18:20 Ur Culture Indicated? No/not indicated 12/12/20 18:20 Stool Description 15 g. brown/liquid 12/19/20 00:10 Stool Description 15 g. brown/liquid 12/19/20 00:10 Stl Occult Blood (IFOB) Negative (NEGATIVE) 12/19/20 00:10 Stool for White Cells Negative (NEGATIVE) 12/19/20 00:10 Stl C. diff Tox B Gene Negative (NEGATIVE) 12/19/20 00:10 Stl C. diff [id number]-[id number] Presumptive negative (NEGATIVE) 12/19/20 00:10 SARS-CoV-2 (PCR) Positive (NEGATIVE) A 12/03/20 12:18 Cryptosporid parvum Ag Negative (NEGATIVE) 12/19/20 00:10 Giardia lamblia Ag Negative (NEGATIVE) 12/19/20 00:10 Influenza Type A (PCR) Negative (NEGATIVE) 12/03/20 12:18 Influenza Type B (PCR) Negative (NEGATIVE) 12/03/20 12:18 RSV (PCR) Negative (NEGATIVE) 12/03/20 12:18 Plan (1) Pneumonia due to COVID-19 virus: Status: Acute Plan: Pneumonia protocol
[2020-12-21] MEDS: LIPITOR TAB 80 MG PO SCH (21:06)
[2020-12-21] MEDS: MELATONIN PO SCH (21:06)
[2020-12-21] MEDS: SNACK - Diabetic Appropriate PO SCH (21:06)
[2020-12-22] MEDS: TESSALON PERLES PO SCH ×3 (05:42→21:54)
[2020-12-22 06:28] LABS: BASOPHILS # (AUTO) 0.1 X10^3/uL (0.0-0.1); BASOPHILS % (AUTO) 0.7 % (0.2-1.0); EOSINOPHILS % (AUTO) 0.5 % (0.9-2.9); HEMATOCRIT 29.6 % (36.0-47.0); LYMPHOCYTES # (AUTO) 1.1 X10^3/uL (1.3-2.9); LYMPHOCYTES % (AUTO) 13.2 % (21.0-51.0); MEAN CORPUSCULAR HEMOGLOBIN 31.8 pg (27.0-34.0); MEAN CORPUSCULAR HGB CONC 33.7 g/dL (33.0-35.0); MEAN CORPUSCULAR VOLUME 94.2 fL (80.0-100.0); MEAN PLATELET VOLUME 10.5 fL (7.4-11.0); MONOCYTES # (AUTO) 1.3 x10^3/uL (0.3-0.8); MONOCYTES % (AUTO) 14.6 % (0.0-13.0); NEUTROPHILS # (AUTO) 6.1 x10^3/uL (2.2-4.8); PLATELET COUNT 154 X10^3/uL (150.0-450.0); RED BLOOD COUNT 3.14 X10^6/uL (3.5-5.4); RED CELL DISTRIBUTION WIDTH 14.1 % (11.6-16.5); WHITE BLOOD COUNT 8.6 X10^3/uL (3.6-10.0)
[2020-12-22 06:43] LABS: ALANINE AMINOTRANSFERASE 125 Units/L (12-78); ALBUMIN 2.8 g/dL (3.4-5.0); ALKALINE PHOSPHATASE 47 Units/L (46-116); ASPARTATE AMINO TRANSFERASE 193 Units/L (15-37); BLOOD UREA NITROGEN 11 mg/dL (7-18); CALCIUM 8.7 mg/dL (8.5-10.1); CARBON DIOXIDE 29.5 mmol/L (21-32); CHLORIDE 101 mmol/L (98-107); COR CA(FOR HYPOALB) 9.7 mg/dL (8.5-10.1); COR NA(FOR HYPERGLY) 139 mmol/L (136-145); CREATININE 0.68 mg/dL (0.55-1.02); SODIUM 138 mmol/L (136-145); TOTAL PROTEIN 6.4 g/dL (6.4-8.2); eGFR NON BLACK RACES > 60 (>60)
--- NOTE | 2020-12-22 06:46 | RAD ---
HISTORYCOVID PNEUMONIASTUDYCHEST, 1 [id number]/13/2021.TECHNIQUEAP view of the chestFINDINGSSimilar appearance of left sided central line. Patient is rotated.The cardiac and mediastinal contours appear stable. No significant change in bilateral airspace and interstitial opacities. No definite pleural effusion or pneumothorax.IMPRESSIONNo significant change.Electronically signed by: Tobi Eckert (Dec 22, 2020 06:44:21)
[2020-12-22] MEDS ORDERED: GLUCOPHAGE XR 24-HR PO ONE (08:12)
--- NOTE | 2020-12-22 08:20 | MRI ---
HISTORYRULE OUT TRANSVERSE MYELITISSTUDYMRI LUMBAR W W/O IV contrastCOMPARISONNoneTECHNIQUEMultiplanar multisequence MRI of the lumbar spine was obtained without IV contrast. Patient terminated exam prior to postcontrast imaging.FINDINGSThe conus terminates at t he L1 level. No spondylolisthesis. No compression fracture or abnormal bony signal. No abnormal T2 si gnal is seen in the conus.T12 -- L1: Posterior element hypertrophy causes mild central canal narrowin g without contact of the conus.L1 -- L2: No significant stenosis. Incidental note is made of 2 cysts in the left kidney measuring up to 2.4 cm in greatest dimension.L2 -- L3: Mild posterior element hyp ertrophy central disc bulge cause mild bilateral neural foraminal narrowing and slight thecal sac eff acement.L3 -- L4: Likely mild diffuse disc bulge causes little central canal and neural foraminal margarita rowing.L4 -- L5: Facet arthropathy and moderate posterior element hypertrophy is seen. There is broad central disc bulge. Mild bilateral neural foraminal narrowing is seen. Little thecal sac effacement is seen but there is moderate lateral recess stenosis.L5 -- S1:Probable mild broad central disc bulge causes little neural foraminal and central canal narrowing with mild lateral recess stenosis.IMPRESS IONSeveral disc bulges are seen but no disc herniations are seen. Little central canal narrowing is s een with no suggestion of significant neural foraminal narrowing.Posterior element hypertrophy at L4- 5 and mild disc bulge cause moderate lateral recess stenosis bilaterally. Facet arthropathy is seen a t this level.Electronically signed by: Joon Nobles (Dec 22, 2020 08:19:10)
--- NOTE | 2020-12-22 08:26 | MRI ---
HISTORYBilateral lower extremity weakness, no known injurySTUDYMRI THORACIC W W/O IV contrastCOMPARISONNoneTECHNIQUEMRI of the thoracic spinewithout IV contrast is performed using standard sequences in multiple planes. Patient terminated exam prior to postcontrast imaging.FINDINGSNo abnormal T2 signal is seen in the thoracic cord. Thoracic cord is normal in size. No compression fracture or subluxation is seen. Mild hypertrophic arthritic changes are seen in the facet joints throughout the thoracic spine but cause little central canal and neural foraminal narrowing. Tiny central disc osteophyte complexes are seen at T5-6 and T6-7. These cause no significant stenosis.IMPRESSIONMild diffuse arthritic changes are seen without evidence of significant stenosis.No suggestion of transverse myelitis.Electronically signed by: Joon Nobles (Dec 22, 2020 08:23:46)
[2020-12-22] MEDS: BROVANA IN SCH ×2 (08:30→21:30)
[2020-12-22] MEDS: PULMICORT NEB TX 0.5 MG NEB SCH ×2 (08:30→21:30)
[2020-12-22] MEDS: INVOKANA PO SCH (09:07)
[2020-12-22] MEDS: GLUCOPHAGE XR 24-HR PO SCH ×2 (09:07→20:43)
[2020-12-22] MEDS: LOVENOX INJ 30 MG SYR SC SCH (09:08)
[2020-12-22] MEDS: TOPROL XL PO SCH (09:08)
[2020-12-22] MEDS: PEPCID TAB 40 MG PO SCH ×2 (09:08→20:45)
[2020-12-22] MEDS: ACTOS PO SCH (09:08)
[2020-12-22] MEDS: HumuLIN R SC PRN ×2 (11:31→16:44)
--- NOTE | 2020-12-22 13:15 | PCM.PROG ---
Progress Note Progress Note for Day of Date of Exam: 12/22/20 Subjective Subjective: Pt is a 65 year old female admitted for COVID-19 pneumonia with hypoxia. Pt reports some improvement in her leg strength compared to yesterday. She states she is feeling depressed being in the hospital. She is currently utilizing 4L nasal cannula supplemental oxygen. Yesterday, she had MRI of T and L-spine that ruled out acute transverse myelitis. Results revealed: Several disc bulges are seen but no disc herniations are seen. Little central canal narrowing is seen with no suggestion of significant neural foraminal narrowing. Posterior element hypertrophy at L4-5 and mild disc bulge cause moderate lateral recess stenosis bilaterally. Facet arthropathy is seen at this level. Mild diffuse arthritic changes are seen without evidence of significant stenosis. No suggestion of transverse myelitis. Labs/ imaging: Wbc 8.6, Hgb 10, Plt 154, Na 138, K 3.8, Creatinine 0.68, Glucose 122. CXR: Persistent bilateral pneumonia with slight interval improvement in the right lung. Continue treatment course that includes: Scheduled Bronchodilators, Lovenox 30mg BID, immune supporting supplements, supplemental O2, I/S, Respiratory therapy consult, Pneumonia protocol. 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 Wean/titrate oxygen as tolerated. Continue to monitor closely and follow up labs/imaging in the mo rning. Past Medical Family Social History Past Med/Fam/Surg Hx: No changes since H&P Allergies: Allergies No Known Drug Allergies Allergy (Verified 05/13/20 08:54) Review of Systems ROS: No change since H&P Vital Signs and I&O's Vital Signs: Temperature 97.9 F Pulse Rate [Left] 116 Pulse Rate 101 Respiratory Rate 20 Blood Pressure [Left Arm] 100/59 Blood Pressure [Right Arm] 117/77 Blood Pressure 137/63 O2 Sat by Pulse Oximetry 96 Intake and Output: Intake & Output 12/19/20 12/20/20 12/21/20 12/22/20 23:59 23:59 23:59 23:59 Intake Total 880 / 880 775 / 775 2380 / 2380 Balance 880 / 880 775 / 775 2380 / 2380 Physical Exam Oriented: Normal Eyes: Normal Ear: Normal Nose: Normal Throat: Normal Respiratory: Diminished and Rales Cardiovascular: Normal : Normal Auscultation: Bowel Sounds: Normal Tenderness: Normal Skin: Normal Musculoskeletal: Leg (weakness bilateral lower extremities) Psychiatric: Normal Mood Description: Calm Speech Pattern: Clear and Appropriate Laboratory and Diagnostics Result Diagrams: 12/22/20 05:50 12/22/20 05:50 Labs: 12/19/20 00:10 Stool Stool Culture - Preliminary 12/19/20 00:10 Stool - Final 12/03/20 10:55 Blood Blood Culture - Final 12/03/20 10:50 Blood Blood Culture - Final 12/04/20 21:15 Sputum - Expectorated Sputum Sputum Culture - Final Pseudomonas Aeruginosa 12/04/20 21:15 Sputum - Expectorated Sputum - Final Laboratory WBC 8.6 X10^3/uL (3.6-10.0) 12/22/20 05:50 RBC 3.14 X10^6/uL (3.5-5.4) L 12/22/20 05:50 Hgb 10.0 g/dL (12.0-16.0) L 12/22/20 05:50 Hct 29.6 % (36.0-47.0) L 12/22/20 05:50 MCV 94.2 fL (80.0-100.0) 12/22/20 05:50 MCH 31.8 pg (27.0-34.0) 12/22/20 05:50 MCHC 33.7 g/dL (33.0-35.0) 12/22/20 05:50 RDW 14.1 % (11.6-16.5) 12/22/20 05:50 Plt Count 154 X10^3/uL (150.0-450.0) 12/22/20 05:50 MPV 10.5 fL (7.4-11.0) 12/22/20 05:50 Neut % (Auto) 71.0 % (42.0-75.0) 12/22/20 05:50 Lymph % (Auto) 13.2 % (21.0-51.0) L 12/22/20 05:50 [place] % (Auto) 14.6 % (0.0-13.0) H 12/22/20 05:50 Eos % (Auto) 0.5 % (0.9-2.9) L 12/22/20 05:50 Baso % (Auto) 0.7 % (0.2-1.0) 12/22/20 05:50 Neut # (Auto) 6.1 x10^3/uL (2.2-4.8) H 12/22/20 05:50 Lymph # (Auto) 1.1 X10^3/uL (1.3-2.9) L 12/22/20 05:50 [place] # (Auto) 1.3 x10^3/uL (0.3-0.8) H 12/22/20 05:50 Eos # (Auto) 0.0 x10^3/uL (0.0-0.2) 12/22/20 05:50 Baso # (Auto) 0.1 X10^3/uL (0.0-0.1) 12/22/20 05:50 Absolute Nucleated RBC 0.1 /100WBC 12/22/20 05:50 D-Dimer 0.39 ug/ml (0.0-0.57) 12/08/20 05:39 Sample Site R rad 12/20/20 03:42 ABG pH 7.460 (7.35-7.45) H 12/20/20 03:42 ABG pCO2 44.0 mmHg (35.0-45.0) 12/20/20 03:42 ABG pO2 58.0 mmHg (80.0-100.0) L 12/20/20 03:42 ABG HCO3 31.3 mmol/L (22-26) H* 12/20/20 03:42 ABG O2 Saturation 91.0 % (90-100) 12/20/20 03:42 ABG Base Excess 6.6 mmol/L (-2.0-2.0) H 12/20/20 03:42 Agusto Test Poss 12/20/20 03:42 A-a Gradient 115.0 mmHg 12/20/20 03:42 FiO2 32.0 12/20/20 03:42 Blood Gas Comments [place] well kb 12/20/20 03:42 Sodium 138 mmol/L (136-145) 12/22/20 05:50 Corrected Sodium 139 mmol/L (136-145) 12/22/20 05:50 Potassium 3.8 mmol/L (3.5-5.1) 12/22/20 05:50 Chloride 101 mmol/L (98-107) 12/22/20 05:50 Carbon Dioxide 29.5 mmol/L (21-32) 12/22/20 05:50 BUN 11 mg/dL (7-18) 12/22/20 05:50 Creatinine 0.68 mg/dL (0.55-1.02) 12/22/20 05:50 Est GFR (MDRD) Af Amer > 60 (>60) 12/22/20 05:50 Est GFR (MDRD) Non-Af > 60 (>60) 12/22/20 05:50 Glucose 122 mg/dL (65-99) H 12/22/20 05:50 POC Glucose (mg/dL) 168 mg/dL (65-99) H 12/22/20 11:22 Lactic Acid 2.2 mmol/L (0.4-2.0) H 12/03/20 10:55 Calcium 8.7 mg/dL (8.5-10.1) 12/22/20 05:50 Corrected Calcium 9.7 mg/dL (8.5-10.1) 12/22/20 05:50 Magnesium 1.9 mg/dL (1.7-2.9) 12/19/20 05:06 Ferritin 1234 ng/mL (8-252) H 12/08/20 05:39 Total Bilirubin 0.80 mg/dL (0.2-1.0) 12/22/20 05:50 AST 193 Units/L (15-37) H 12/22/20 05:50 ALT 125 Units/L (12-78) H 12/22/20 05:50 Alkaline Phosphatase 47 Units/L (46-116) 12/22/20 05:50 Creatine Kinase 955 Units/L (26-192) H 12/03/20 10:55 CK-MB (CK-2) < 1.0 ng/mL (0-4.0) 12/03/20 10:55 CK/CKMB % Calc 0.1 % (<4) 12/03/20 10:55 Troponin I < 0.02 ng/mL (0-1.5) 12/03/20 10:55 C-Reactive Protein 6.50 mg/L (0-3.0) H 12/08/20 05:39 B-Natriuretic Peptide 97.1 pg/mL (0-79) H 12/08/20 05:39 Total Protein 6.4 g/dL (6.4-8.2) 12/22/20 05:50 Albumin 2.8 g/dL (3.4-5.0) L 12/22/20 05:50 Globulin 3.6 g/dL (2.5-4.5) 12/22/20 05:50 Albumin/Globulin Ratio 0.8 Ratio (1.1-2.1) L 12/22/20 05:50 Specimen Type Catherized urine 12/12/20 18:20 Urine Color Yellow (YELLOW) 12/12/20 18:20 Urine Appearance Clear (CLEAR) 12/12/20 18:20 Urine pH 6.0 (5.0 - 8.0) 12/12/20 18:20 Ur Specific [place] 1.015 (1.000-1.030) 12/12/20 18:20 Urine Protein 1+ (NEGATIVE) 12/12/20 18:20 Urine Glucose (UA) 4+ (NEGATIVE) 12/12/20 18:20 Urine Ketones 4+ (NEGATIVE) 12/12/20 18:20 Urine Occult Blood 1+ (NEGATIVE) 12/12/20 18:20 Urine Nitrite Negative (NEGATIVE) 12/12/20 18:20 Urine Bilirubin Negative (NEGATIVE) 12/12/20 18:20 Urine Urobilinogen Normal (NORMAL) 12/12/20 18:20 Ur Leukocyte Esterase Negative (NEGATIVE) 12/12/20 18:20 Urine RBC 3-5 /HPF (0-3) A 12/12/20 18:20 Urine WBC 0-2 /HPF (0-5) 12/12/20 18:20 Ur Squamous Epith Cells Few /HPF (NEGATIVE) 12/12/20 18:20 Urine Bacteria Trace /HPF (NEGATIVE) 12/12/20 18:20 Urine Yeast Numerous /HPF (NEGATIVE) 12/12/20 18:20 Ur Culture Indicated? No/not indicated 12/12/20 18:20 Stool Description 15 g. brown/liquid 12/19/20 00:10 Stool Description 15 g. brown/liquid 12/19/20 00:10 Stl Occult Blood (IFOB) Negative (NEGATIVE) 12/19/20 00:10 Stool for White Cells Negative (NEGATIVE) 12/19/20 00:10 Stl C. diff Tox B Gene Negative (NEGATIVE) 12/19/20 00:10 Stl C. diff [id number] Presumptive negative (NEGATIVE) 12/19/20 00:10 SARS-CoV-2 (PCR) Positive (NEGATIVE) A 12/03/20 12:18 Cryptosporid parvum Ag Negative (NEGATIVE) 12/19/20 00:10 Giardia lamblia Ag Negative (NEGATIVE) 12/19/20 00:10 Influenza Type A (PCR) Negative (NEGATIVE) 12/03/20 12:18 Influenza Type B (PCR) Negative (NEGATIVE) 12/03/20 12:18 RSV (PCR) Negative (NEGATIVE) 12/03/20 12:18 Plan (1) Pneumonia due to COVID-19 virus: Status: Acute Plan: Pneumonia protocol
[2020-12-22] MEDS: SNACK - Diabetic Appropriate PO SCH (20:42)
[2020-12-22] MEDS: LIPITOR TAB 80 MG PO SCH (20:43)
[2020-12-22] MEDS: MELATONIN PO SCH (20:43)
[2020-12-22] MEDS: K-DUR TAB 20 MEQ PO PRN (20:45)
[2020-12-23] MEDS: TESSALON PERLES PO SCH ×3 (05:47→21:09)
[2020-12-23 06:19] LABS: BASOPHILS # (AUTO) 0.1 X10^3/uL (0.0-0.1); BASOPHILS % (AUTO) 0.7 % (0.2-1.0); EOSINOPHILS # (AUTO) 0.1 x10^3/uL (0.0-0.2); HEMATOCRIT 28.6 % (36.0-47.0); HEMOGLOBIN 9.6 g/dL (12.0-16.0); LYMPHOCYTES # (AUTO) 1.3 X10^3/uL (1.3-2.9); LYMPHOCYTES % (AUTO) 16.7 % (21.0-51.0); MEAN CORPUSCULAR HEMOGLOBIN 31.7 pg (27.0-34.0); MEAN CORPUSCULAR HGB CONC 33.6 g/dL (33.0-35.0); MEAN CORPUSCULAR VOLUME 94.2 fL (80.0-100.0); MEAN PLATELET VOLUME 9.7 fL (7.4-11.0); MONOCYTES % (AUTO) 13.6 % (0.0-13.0); NEUTROPHILS # (AUTO) 5.2 x10^3/uL (2.2-4.8); PLATELET COUNT 147 X10^3/uL (150.0-450.0); RED BLOOD COUNT 3.03 X10^6/uL (3.5-5.4); RED CELL DISTRIBUTION WIDTH 13.9 % (11.6-16.5); WHITE BLOOD COUNT 7.7 X10^3/uL (3.6-10.0)
[2020-12-23 06:31] LABS: BLOOD UREA NITROGEN 11 mg/dL (7-18); CALCIUM 8.7 mg/dL (8.5-10.1); CARBON DIOXIDE 29.8 mmol/L (21-32); CHLORIDE 104 mmol/L (98-107); COR NA(FOR HYPERGLY) 141 mmol/L (136-145); CREATININE 0.59 mg/dL (0.55-1.02); SODIUM 140 mmol/L (136-145); eGFR NON BLACK RACES > 60 (>60)
[2020-12-23 06:32] LABS: ALANINE AMINOTRANSFERASE 119 Units/L (12-78); ALBUMIN 2.8 g/dL (3.4-5.0); ALKALINE PHOSPHATASE 43 Units/L (46-116); ASPARTATE AMINO TRANSFERASE 161 Units/L (15-37); COR CA(FOR HYPOALB) 9.7 mg/dL (8.5-10.1); TOTAL PROTEIN 6.3 g/dL (6.4-8.2)
--- NOTE | 2020-12-23 06:47 | RAD ---
HISTORYCOVID PNEUMONIASTUDYCHEST, 1 [id number]/14/2021.TECHNIQUEAP view of the chestFINDINGSLeft-sided central line in stable position. Patient is rotated.The cardiac and mediastinal contours appear stable. No significant change in bilateral airspace and interstitial opacities. No definite pleural effusion or pneumothorax.IMPRESSIONNo significant change.Electronically signed by: Tobi Eckert (Dec 23, 2020 06:44:44)
[2020-12-23] MEDS: PULMICORT NEB TX 0.5 MG NEB SCH ×2 (07:35→20:17)
[2020-12-23] MEDS: BROVANA IN SCH ×2 (07:35→20:17)
[2020-12-23] MEDS: PEPCID TAB 40 MG PO SCH ×2 (10:00→20:43)
[2020-12-23] MEDS: INVOKANA PO SCH (10:00)
[2020-12-23] MEDS: GLUCOPHAGE XR 24-HR PO SCH ×2 (10:00→20:42)
[2020-12-23] MEDS: TOPROL XL PO SCH (10:00)
[2020-12-23] MEDS: ACTOS PO SCH (10:00)
[2020-12-23] MEDS: LOVENOX INJ 30 MG SYR SC SCH (10:26)
--- NOTE | 2020-12-23 11:07 | PCM.PROG ---
Progress Note Progress Note for Day of Date of Exam: 12/23/20 Subjective Subjective: Pt is a 65 year old female admitted for COVID-19 pneumonia with hypoxia. This morning pt is utilizing 4L nasal cannula supplemental oxygen. Pt reports some improvement in her lower leg strength but minimal. Labs/imaging: Wbc 7.7, Hgb 9.6, Plt 147, Na 140, K 3.7, Creatinine 0.59, Glucose 145. CXR: no significant changes. Continue treatment course that includes: Scheduled Bronchodilators, Lovenox 30mg BID, immune supporting supplements, supplemental O2, I/S, Respiratory therapy consult, Pneumonia protocol. Discontinue Lovenox and start on eliquis. Pt to be transferred to [facility] for additional physical therapy recommended by physical therapy. Wean/titrate oxygen as tolerated. Continue to monitor closely and follow up labs/imaging in the morning. Past Medical Family Social History Past Med/Fam/Surg Hx: No changes since H&P Allergies: Allergies No Known Drug Allergies Allergy (Verified 05/13/20 08:54) Review of Systems ROS: No change since H&P Vital Signs and I&O's Vital Signs: Temperature 98.5 F Pulse Rate [Left] 114 Pulse Rate 82 Respiratory Rate 20 Blood Pressure [Left Arm] 100/59 Blood Pressure [Right Arm] 113/66 Blood Pressure 137/63 O2 Sat by Pulse Oximetry 91 Intake and Output: Intake & Output 12/20/20 12/21/20 12/22/20 12/23/20 23:59 23:59 23:59 23:59 Intake Total 775 / 775 2380 / 2380 560 / 560 140 / 140 Balance 775 / 775 2380 / 2380 560 / 560 140 / 140 Physical Exam Oriented: Normal Eyes: Normal Ear: Normal Nose: Normal Throat: Normal Respiratory: Diminished and Rales Cardiovascular: Normal : Normal Auscultation: Bowel Sounds: Normal Tenderness: Normal Skin: Normal Musculoskeletal: Leg (weakness bilateral lower extremities) Psychiatric: Normal Mood Description: Calm Speech Pattern: Clear and Appropriate Laboratory and Diagnostics Result Diagrams: 12/23/20 05:38 12/23/20 05:38 Labs: 12/19/20 00:10 Stool Stool Culture - Preliminary 12/19/20 00:10 Stool - Final 12/03/20 10:55 Blood Blood Culture - Final 12/03/20 10:50 Blood Blood Culture - Final 12/04/20 21:15 Sputum - Expectorated Sputum Sputum Culture - Final Pseudomonas Aeruginosa 12/04/20 21:15 Sputum - Expectorated Sputum - Final Laboratory WBC 7.7 X10^3/uL (3.6-10.0) 12/23/20 05:38 RBC 3.03 X10^6/uL (3.5-5.4) L 12/23/20 05:38 Hgb 9.6 g/dL (12.0-16.0) L 12/23/20 05:38 Hct 28.6 % (36.0-47.0) L 12/23/20 05:38 MCV 94.2 fL (80.0-100.0) 12/23/20 05:38 MCH 31.7 pg (27.0-34.0) 12/23/20 05:38 MCHC 33.6 g/dL (33.0-35.0) 12/23/20 05:38 RDW 13.9 % (11.6-16.5) 12/23/20 05:38 Plt Count 147 X10^3/uL (150.0-450.0) L 12/23/20 05:38 MPV 9.7 fL (7.4-11.0) 12/23/20 05:38 Neut % (Auto) 68.0 % (42.0-75.0) 12/23/20 05:38 Lymph % (Auto) 16.7 % (21.0-51.0) L 12/23/20 05:38 Mck[place] % (Auto) 13.6 % (0.0-13.0) H 12/23/20 05:38 Eos % (Auto) 1.0 % (0.9-2.9) 12/23/20 05:38 Baso % (Auto) 0.7 % (0.2-1.0) 12/23/20 05:38 Neut # (Auto) 5.2 x10^3/uL (2.2-4.8) H 12/23/20 05:38 Lymph # (Auto) 1.3 X10^3/uL (1.3-2.9) 12/23/20 05:38 [place] # (Auto) 1.0 x10^3/uL (0.3-0.8) H 12/23/20 05:38 Eos # (Auto) 0.1 x10^3/uL (0.0-0.2) 12/23/20 05:38 Baso # (Auto) 0.1 X10^3/uL (0.0-0.1) 12/23/20 05:38 Absolute Nucleated RBC 0.0 /100WBC 12/23/20 05:38 D-Dimer 0.39 ug/ml (0.0-0.57) 12/08/20 05:39 Sample Site R rad 12/20/20 03:42 ABG pH 7.460 (7.35-7.45) H 12/20/20 03:42 ABG pCO2 44.0 mmHg (35.0-45.0) 12/20/20 03:42 ABG pO2 58.0 mmHg (80.0-100.0) L 12/20/20 03:42 ABG HCO3 31.3 mmol/L (22-26) H* 12/20/20 03:42 ABG O2 Saturation 91.0 % (90-100) 12/20/20 03:42 ABG Base Excess 6.6 mmol/L (-2.0-2.0) H 12/20/20 03:42 Agusto Test Poss 12/20/20 03:42 A-a Gradient 115.0 mmHg 12/20/20 03:42 FiO2 32.0 12/20/20 03:42 Blood Gas Comments Rigo well kb 12/20/20 03:42 Sodium 140 mmol/L (136-145) 12/23/20 05:38 Corrected Sodium 141 mmol/L (136-145) 12/23/20 05:38 Potassium 3.7 mmol/L (3.5-5.1) 12/23/20 05:38 Chloride 104 mmol/L (98-107) 12/23/20 05:38 Carbon Dioxide 29.8 mmol/L (21-32) 12/23/20 05:38 BUN 11 mg/dL (7-18) 12/23/20 05:38 Creatinine 0.59 mg/dL (0.55-1.02) 12/23/20 05:38 Est GFR (MDRD) Af Amer > 60 (>60) 12/23/20 05:38 Est GFR (MDRD) Non-Af > 60 (>60) 12/23/20 05:38 Glucose 145 mg/dL (65-99) H 12/23/20 05:38 POC Glucose (mg/dL) 144 mg/dL (65-99) H 12/23/20 05:12 Lactic Acid 2.2 mmol/L (0.4-2.0) H 12/03/20 10:55 Calcium 8.7 mg/dL (8.5-10.1) 12/23/20 05:38 Corrected Calcium 9.7 mg/dL (8.5-10.1) 12/23/20 05:38 Magnesium 1.9 mg/dL (1.7-2.9) 12/19/20 05:06 Ferritin 1234 ng/mL (8-252) H 12/08/20 05:39 Total Bilirubin 0.70 mg/dL (0.2-1.0) 12/23/20 05:38 AST 161 Units/L (15-37) H 12/23/20 05:38 ALT 119 Units/L (12-78) H 12/23/20 05:38 Alkaline Phosphatase 43 Units/L (46-116) L 12/23/20 05:38 Creatine Kinase 955 Units/L (26-192) H 12/03/20 10:55 CK-MB (CK-2) < 1.0 ng/mL (0-4.0) 12/03/20 10:55 CK/CKMB % Calc 0.1 % (<4) 12/03/20 10:55 Troponin I < 0.02 ng/mL (0-1.5) 12/03/20 10:55 C-Reactive Protein 6.50 mg/L (0-3.0) H 12/08/20 05:39 B-Natriuretic Peptide 97.1 pg/mL (0-79) H 12/08/20 05:39 Total Protein 6.3 g/dL (6.4-8.2) L 12/23/20 05:38 Albumin 2.8 g/dL (3.4-5.0) L 12/23/20 05:38 Globulin 3.5 g/dL (2.5-4.5) 12/23/20 05:38 Albumin/Globulin Ratio 0.8 Ratio (1.1-2.1) L 12/23/20 05:38 Specimen Type Catherized urine 12/12/20 18:20 Urine Color Yellow (YELLOW) 12/12/20 18:20 Urine Appearance Clear (CLEAR) 12/12/20 18:20 Urine pH 6.0 (5.0 - 8.0) 12/12/20 18:20 Ur Specific [place] 1.015 (1.000-1.030) 12/12/20 18:20 Urine Protein 1+ (NEGATIVE) 12/12/20 18:20 Urine Glucose (UA) 4+ (NEGATIVE) 12/12/20 18:20 Urine Ketones 4+ (NEGATIVE) 12/12/20 18:20 Urine Occult Blood 1+ (NEGATIVE) 12/12/20 18:20 Urine Nitrite Negative (NEGATIVE) 12/12/20 18:20 Urine Bilirubin Negative (NEGATIVE) 12/12/20 18:20 Urine Urobilinogen Normal (NORMAL) 12/12/20 18:20 Ur Leukocyte Esterase Negative (NEGATIVE) 12/12/20 18:20 Urine RBC 3-5 /HPF (0-3) A 12/12/20 18:20 Urine WBC 0-2 /HPF (0-5) 12/12/20 18:20 Ur Squamous Epith Cells Few /HPF (NEGATIVE) 12/12/20 18:20 Urine Bacteria Trace /HPF (NEGATIVE) 12/12/20 18:20 Urine Yeast Numerous /HPF (NEGATIVE) 12/12/20 18:20 Ur Culture Indicated? No/not indicated 12/12/20 18:20 Stool Description 15 g. brown/liquid 12/19/20 00:10 Stool Description 15 g. brown/liquid 12/19/20 00:10 Stl Occult Blood (IFOB) Negative (NEGATIVE) 12/19/20 00:10 Stool for White Cells Negative (NEGATIVE) 12/19/20 00:10 Stl C. diff Tox B Gene Negative (NEGATIVE) 12/19/20 00:10 Stl C. diff [id number] Presumptive negative (NEGATIVE) 12/19/20 00:10 SARS-CoV-2 (PCR) Positive (NEGATIVE) A 12/03/20 12:18 Cryptosporid parvum Ag Negative (NEGATIVE) 12/19/20 00:10 Giardia lamblia Ag Negative (NEGATIVE) 12/19/20 00:10 Influenza Type A (PCR) Negative (NEGATIVE) 12/03/20 12:18 Influenza Type B (PCR) Negative (NEGATIVE) 12/03/20 12:18 RSV (PCR) Negative (NEGATIVE) 12/03/20 12:18 Plan (1) Pneumonia due to COVID-19 virus: Status: Acute Plan: Pneumonia protocol
[2020-12-23] MEDS: ZOFRAN INJ 4 MG VIAL IVP PRN (15:20)
[2020-12-23] MEDS: SNACK - Diabetic Appropriate PO SCH (20:42)
[2020-12-23] MEDS: MELATONIN PO SCH (20:42)
[2020-12-23] MEDS: LIPITOR TAB 80 MG PO SCH (20:42)
[2020-12-23] MEDS: K-DUR TAB 20 MEQ PO PRN (20:43)
[2020-12-24] MEDS: TYLENOL 325 MG TAB PO PRN (04:59)
[2020-12-24] MEDS: TESSALON PERLES PO SCH (04:59)
[2020-12-24 06:03] LABS: BASOPHILS # (AUTO) 0.1 X10^3/uL (0.0-0.1); BASOPHILS % (AUTO) 0.8 % (0.2-1.0); EOSINOPHILS # (AUTO) 0.1 x10^3/uL (0.0-0.2); HEMATOCRIT 28.3 % (36.0-47.0); HEMOGLOBIN 9.7 g/dL (12.0-16.0); LYMPHOCYTES # (AUTO) 1.4 X10^3/uL (1.3-2.9); LYMPHOCYTES % (AUTO) 17.9 % (21.0-51.0); MEAN CORPUSCULAR HEMOGLOBIN 32.2 pg (27.0-34.0); MEAN CORPUSCULAR HGB CONC 34.1 g/dL (33.0-35.0); MEAN CORPUSCULAR VOLUME 94.3 fL (80.0-100.0); MEAN PLATELET VOLUME 9.8 fL (7.4-11.0); MONOCYTES # (AUTO) 0.9 x10^3/uL (0.3-0.8); MONOCYTES % (AUTO) 11.7 % (0.0-13.0); NEUTROPHILS # (AUTO) 5.5 x10^3/uL (2.2-4.8); NEUTROPHILS % (AUTO) 68.6 % (42.0-75.0); PLATELET COUNT 163 X10^3/uL (150.0-450.0); RED CELL DISTRIBUTION WIDTH 14.4 % (11.6-16.5)
[2020-12-24 06:18] LABS: ALANINE AMINOTRANSFERASE 110 Units/L (12-78); ALBUMIN 2.8 g/dL (3.4-5.0); ALKALINE PHOSPHATASE 47 Units/L (46-116); ASPARTATE AMINO TRANSFERASE 110 Units/L (15-37); BLOOD UREA NITROGEN 10 mg/dL (7-18); CALCIUM 8.9 mg/dL (8.5-10.1); CARBON DIOXIDE 28.9 mmol/L (21-32); CHLORIDE 103 mmol/L (98-107); COR CA(FOR HYPOALB) 9.9 mg/dL (8.5-10.1); COR NA(FOR HYPERGLY) 140 mmol/L (136-145); CREATININE 0.65 mg/dL (0.55-1.02); SODIUM 139 mmol/L (136-145); TOTAL PROTEIN 6.4 g/dL (6.4-8.2); eGFR NON BLACK RACES > 60 (>60)
[2020-12-24 08:01] VITALS: BP 117/67
[2020-12-24] MEDS: PULMICORT NEB TX 0.5 MG NEB SCH (08:10)
[2020-12-24] MEDS: BROVANA IN SCH (08:10)
[2020-12-24] MEDS: INVOKANA PO SCH (09:02)
[2020-12-24] MEDS: PEPCID TAB 40 MG PO SCH (09:03)
[2020-12-24] MEDS: GLUCOPHAGE XR 24-HR PO SCH (09:03)
[2020-12-24] MEDS: ACTOS PO SCH (09:04)
[2020-12-24] MEDS: TOPROL XL PO SCH (09:04)
[2020-12-24] MEDS: LOVENOX INJ 30 MG SYR SC SCH (09:04)
--- NOTE | 2020-12-29 16:31 | W.DIS.FURT ---
Summary of Discharge Discharge Summary of Date Date of Exam: 12/24/20 Admission Date Date of Admission: 12/03/20 Admission Diagnosis Patient Problems (Updated 12/03/20 @ 16:16 by Eric Bush) Pneumonia due to COVID-19 virus (Acute) U07.1, J12.82 Hypoxia (Acute) R09.02 Hospital Course: Pt is a 65 year old female admitted for COVID-19 pneumonia with hypoxia. Her hospital/treatment course included: Scheduled Bronchodilators, Eliquis 5mg BID, immune supporting supplements, supplemental O2, I/S, Respiratory therapy consult, Pneumonia protocol. Pt responded well to treatments and was discharged to [facility] for additional physical therapy that was recommended due to her weakness in bilateral lower extremities. Pt required 3L nasal cannula on discharge. Pt discharged in stable condition. Labs: Laboratory Last Values WBC 8.0 X10^3/uL (3.6-10.0) 12/24/20 05:10 RBC 3.00 X10^6/uL (3.5-5.4) L 12/24/20 05:10 Hgb 9.7 g/dL (12.0-16.0) L 12/24/20 05:10 Hct 28.3 % (36.0-47.0) L 12/24/20 05:10 MCV 94.3 fL (80.0-100.0) 12/24/20 05:10 MCH 32.2 pg (27.0-34.0) 12/24/20 05:10 MCHC 34.1 g/dL (33.0-35.0) 12/24/20 05:10 RDW 14.4 % (11.6-16.5) 12/24/20 05:10 Plt Count 163 X10^3/uL (150.0-450.0) 12/24/20 05:10 MPV 9.8 fL (7.4-11.0) 12/24/20 05:10 Neut % (Auto) 68.6 % (42.0-75.0) 12/24/20 05:10 Lymph % (Auto) 17.9 % (21.0-51.0) L 12/24/20 05:10 [place] % (Auto) 11.7 % (0.0-13.0) 12/24/20 05:10 Eos % (Auto) 1.0 % (0.9-2.9) 12/24/20 05:10 Baso % (Auto) 0.8 % (0.2-1.0) 12/24/20 05:10 Neut # (Auto) 5.5 x10^3/uL (2.2-4.8) H 12/24/20 05:10 Lymph # (Auto) 1.4 X10^3/uL (1.3-2.9) 12/24/20 05:10 [place] # (Auto) 0.9 x10^3/uL (0.3-0.8) H 12/24/20 05:10 Eos # (Auto) 0.1 x10^3/uL (0.0-0.2) 12/24/20 05:10 Baso # (Auto) 0.1 X10^3/uL (0.0-0.1) 12/24/20 05:10 Absolute Nucleated RBC 0.2 /100WBC 12/24/20 05:10 D-Dimer 0.39 ug/ml (0.0-0.57) 12/08/20 05:39 Sample Site R rad 12/20/20 03:42 ABG pH 7.460 (7.35-7.45) H 12/20/20 03:42 ABG pCO2 44.0 mmHg (35.0-45.0) 12/20/20 03:42 ABG pO2 58.0 mmHg (80.0-100.0) L 12/20/20 03:42 ABG HCO3 31.3 mmol/L (22-26) H* 12/20/20 03:42 ABG O2 Saturation 91.0 % (90-100) 12/20/20 03:42 ABG Base Excess 6.6 mmol/L (-2.0-2.0) H 12/20/20 03:42 Agusto Test Poss 12/20/20 03:42 A-a Gradient 115.0 mmHg 12/20/20 03:42 FiO2 32.0 12/20/20 03:42 Blood Gas Comments Rigo well kb 12/20/20 03:42 Sodium 139 mmol/L (136-145) 12/24/20 05:10 Corrected Sodium 140 mmol/L (136-145) 12/24/20 05:10 Potassium 4.2 mmol/L (3.5-5.1) 12/24/20 05:10 Chloride 103 mmol/L (98-107) 12/24/20 05:10 Carbon Dioxide 28.9 mmol/L (21-32) 12/24/20 05:10 BUN 10 mg/dL (7-18) 12/24/20 05:10 Creatinine 0.65 mg/dL (0.55-1.02) 12/24/20 05:10 Est GFR (MDRD) Af Amer > 60 (>60) 12/24/20 05:10 Est GFR (MDRD) Non-Af > 60 (>60) 12/24/20 05:10 Glucose 152 mg/dL (65-99) H 12/24/20 05:10 POC Glucose (mg/dL) 145 mg/dL (65-99) H 12/24/20 05:27 Lactic Acid 2.2 mmol/L (0.4-2.0) H 12/03/20 10:55 Calcium 8.9 mg/dL (8.5-10.1) 12/24/20 05:10 Corrected Calcium 9.9 mg/dL (8.5-10.1) 12/24/20 05:10 Magnesium 1.9 mg/dL (1.7-2.9) 12/19/20 05:06 Ferritin 1234 ng/mL (8-252) H 12/08/20 05:39 Total Bilirubin 0.80 mg/dL (0.2-1.0) 12/24/20 05:10 AST 110 Units/L (15-37) H 12/24/20 05:10 ALT 110 Units/L (12-78) H 12/24/20 05:10 Alkaline Phosphatase 47 Units/L (46-116) 12/24/20 05:10 Creatine Kinase 955 Units/L (26-192) H 12/03/20 10:55 CK-MB (CK-2) < 1.0 ng/mL (0-4.0) 12/03/20 10:55 CK/CKMB % Calc 0.1 % (<4) 12/03/20 10:55 Troponin I < 0.02 ng/mL (0-1.5) 12/03/20 10:55 C-Reactive Protein 6.50 mg/L (0-3.0) H 12/08/20 05:39 B-Natriuretic Peptide 97.1 pg/mL (0-79) H 12/08/20 05:39 Total Protein 6.4 g/dL (6.4-8.2) 12/24/20 05:10 Albumin 2.8 g/dL (3.4-5.0) L 12/24/20 05:10 Globulin 3.6 g/dL (2.5-4.5) 12/24/20 05:10 Albumin/Globulin Ratio 0.8 Ratio (1.1-2.1) L 12/24/20 05:10 Specimen Type Catherized urine 12/12/20 18:20 Urine Color Yellow (YELLOW) 12/12/20 18:20 Urine Appearance Clear (CLEAR) 12/12/20 18:20 Urine pH 6.0 (5.0 - 8.0) 12/12/20 18:20 Ur Specific [place] 1.015 (1.000-1.030) 12/12/20 18:20 Urine Protein 1+ (NEGATIVE) 12/12/20 18:20 Urine Glucose (UA) 4+ (NEGATIVE) 12/12/20 18:20 Urine Ketones 4+ (NEGATIVE) 12/12/20 18:20 Urine Occult Blood 1+ (NEGATIVE) 12/12/20 18:20 Urine Nitrite Negative (NEGATIVE) 12/12/20 18:20 Urine Bilirubin Negative (NEGATIVE) 12/12/20 18:20 Urine Urobilinogen Normal (NORMAL) 12/12/20 18:20 Ur Leukocyte Esterase Negative (NEGATIVE) 12/12/20 18:20 Urine RBC 3-5 /HPF (0-3) A 12/12/20 18:20 Urine WBC 0-2 /HPF (0-5) 12/12/20 18:20 Ur Squamous Epith Cells Few /HPF (NEGATIVE) 12/12/20 18:20 Urine Bacteria Trace /HPF (NEGATIVE) 12/12/20 18:20 Urine Yeast Numerous /HPF (NEGATIVE) 12/12/20 18:20 Ur Culture Indicated? No/not indicated 12/12/20 18:20 Stool Description 15 g. brown/liquid 12/19/20 00:10 Stool Description 15 g. brown/liquid 12/19/20 00:10 Stl Occult Blood (IFOB) Negative (NEGATIVE) 12/19/20 00:10 Stool for White Cells Negative (NEGATIVE) 12/19/20 00:10 Stl C. diff Tox B Gene Negative (NEGATIVE) 12/19/20 00:10 Stl C. diff [id number] Presumptive negative (NEGATIVE) 12/19/20 00:10 SARS-CoV-2 (PCR) Positive (NEGATIVE) A 12/03/20 12:18 Cryptosporid parvum Ag Negative (NEGATIVE) 12/19/20 00:10 Giardia lamblia Ag Negative (NEGATIVE) 12/19/20 00:10 Influenza Type A (PCR) Negative (NEGATIVE) 12/03/20 12:18 Influenza Type B (PCR) Negative (NEGATIVE) 12/03/20 12:18 RSV (PCR) Negative (NEGATIVE) 12/03/20 12:18 Reason For Visit: COVID 19, PNEUMONIA, HYPOXIA Discharge Date Discharge Date: 12/24/20 Discharge Diagnosis All Active Problems (Updated 12/03/20 @ 16:16 by Eric Bush) Constipation (Acute) Knee sprain (Acute) Lumbosacral strain (Acute) Diabetic neuropathy, painful (Acute) Corneal irritation of left eye (Acute) Pneumonia due to COVID-19 virus (Acute) Hypoxia (Acute) Plan of Treatment: Continue with present treatment and follow up plan. Pt is to keep follow up appointment as instructed and take medications as ordered. Discharge Medications Discharge Medications: No Known Drug Allergies Allergy (Verified 05/13/20 08:54) CONTINUE taking the following medications amlodipine 2.5 mg PO DAILY 12/04/20 [History] atorvastatin 40 mg PO HS 12/04/20 [History] budesonide-formoterol [Symbicort] 2 puff INHALATION BID 12/04/20 [History] furosemide 20 mg PO DAILY 12/04/20 [History] gabapentin 300 mg PO BID PRN 12/04/20 [History] hydrocodone-acetaminophen 1 tab PO BID PRN 12/04/20 [History] loratadine 10 mg PO HS 12/04/20 [History] lorazepam 0.5 mg PO DAILY PRN 12/04/20 [History] metoprolol succinate 50 mg PO DAILY 12/04/20 [History] sertraline 100 mg PO DAILY 12/04/20 [History] New Prescriptions apixaban [Eliquis] 5 mg PO BID #60 tab 12/23/20 [Rx] Discharge Disposition Assessment: Stable no acute distress noted at time of discharge. Discharge Disposition: [facility] Discharge Condition: Stable Discharge Plan Discharge Plan Hospital Course: Pt is a 65 year old female admitted for COVID-19 pneumonia with hypoxia. Her hospital/treatment course included: Scheduled Bronchodilators, Eliquis 5mg BID, immune supporting supplements, supplemental O2, I/S, Respiratory therapy consult, Pneumonia protocol. Pt responded well to treatments and was discharged to [facility] for additional physical therapy that was recommended due to her weakness in bilateral lower extremities. Pt required 3L nasal cannula on discharge. Pt discharged in stable condition. Patient Disposition: [facility] Condition: Stable Health Concerns: Post Hospitalization: new medications and changes needed to prevent readmission or further decline. Pt educated and given instructions on all concerns. Care Plan Goals: Problem: Respiratory Complications Goal: Improved Uncomplicated Respiratory Status Instructions: Follow provided instructions. Follow up with primary physician as directed. Contact primary care physician or report to the closest Emergency Room if condition worsens. Plan of Treatment: Continue with present treatment and follow up plan. Pt is to keep follow up appointment as instructed and take medications as ordered. Assessment: Stable no acute distress noted at time of discharge. Prescriptions: New Eliquis 5 mg tablet 5 mg PO BID Qty: 60 RF: 0 Continued glimepiride 4 mg Tablet 4 mg PO QAM RF: 0 pantoprazole [Protonix] [address] For Susp In Packet 40 mg PO DAILY RF: 0 lorazepam 0.5 mg Tablet 0.5 mg PO DAILY PRNRF: 0 hydrocodone-acetaminophen 10-325 mg Tablet 1 tab PO BID PRN (Reason: Pain) RF: 0 gabapentin 300 mg Capsule 300 mg PO BID PRNRF: 0 loratadine 10 mg Tablet 10 mg PO HS RF: 0 atorvastatin 40 mg Tablet 40 mg PO HS RF: 0 sertraline 100 mg Tablet 100 mg PO DAILY RF: 0 budesonide-formoterol [Symbicort] 160-4.5 mcg/actuation Hfa Aerosol Inhaler 2 puff INHALATION BID RF: 0 metoprolol succinate 50 mg Tablet Extended Release 24 Hr 50 mg PO DAILY RF: 0 amlodipine 2.5 mg Tablet 2.5 mg PO DAILY RF: 0 furosemide 20 mg Tablet 20 mg PO DAILY RF: 0 Orders to Discharge Patient Discharge Orders: Discharge (Routine); Ordered 12/24/20 Ordered By: Clark Tripp Follow ups/Referrals Follow ups/Referrals: Neurology [Other] - 1 WEEK (Make follow up for patient next week.) Clark Tripp [STAFF PHYSICIAN] - 01/08/21 (Make followup visit) Instructions Instructions: Shortness of Breath, Adult, [id number], Incentive Spirometer, Home Oxygen Use, Adult, Hand Washing, [id number], Steps to Quit Smoking, [id number], Chronic Obstructive Pulmonary Disease, Mhuo-eq-Ecld, Type 2 Diabetes Mellitus, Self Care, Adult, [id number], Droplet Precautions, Elyl-cw-Ozaa, Contact Precautions, [id number]-ap-[id number], Heart Failure, Mmhg-ri-Tata, You've Been Prescribed an Antibiotic in the Hospital for an Infection - CDC (07/2017) Stand Alone Forms: Excuse From Work or School, Precautions for COVID19, [facility], Patient Portal, Social Distancing
== END 2020-12-24 09:50 | DRG 177 ==
LOC: ER 10:25 → MED/SURG 18:55 → UNDODISIN 12-11 11:35
PROVIDERS: ADMIT Internal Medicine; ATTEND Family Medicine
DX: U07.1 COVID-19; R26.89 Other abnormalities of gait and mobility; R06.02 Shortness of breath; I87.2 Venous insufficiency (chronic) (peripheral); R79.89 Other specified abnormal findings of blood chemistry; R09.02 Hypoxemia; R41.82 Altered mental status, unspecified; J12.82 Pneumonia due to coronavirus disease 2019; E11.65 Type 2 diabetes mellitus with hyperglycemia; J15.1 Pneumonia due to Pseudomonas; Z79.899 Other long term (current) drug therapy; I11.0 Hypertensive heart disease with heart failure; I50.9 Heart failure, unspecified; R79.82 Elevated C-reactive protein (CRP); E78.49 Other hyperlipidemia